=== PATIENT | female | born 1950 | race Caucasian/White ===

== ENCOUNTER → 2018-05-03 12:34 | Outpatient (CLI) | payer MEDICARE, OTHER, SELFPAY ==
--- NOTE | 2018-05-03 | DI.MRI.S_ITS ---
PROCEDURE: MR KNEE RT WO CON INDICATIONS: KNEE PAIN TECHNIQUE: Noncontrast sagittal PD fast spin echo and T2 fast spin echo with fat saturation, sagittal 3-D FLASH with fat saturation; coronal T1 spin echo and PD fast spin echo with fat saturation, and axial PD fast spin echo with fat saturation through the knee. COMPARISON: [facility], MR, KNEE WITHOUT CONTRAST, 03/02/2017, 12:15. FINDINGS: Image quality: Diagnostic. Bones and joint: There is no acute fracture or dislocation. No suspicious osseous lesions are evident. There is a small knee joint effusion with an associated moderate-sized Maxwell cyst. There is mild heterogeneity of the hyaline articular cartilage within the patellofemoral compartment, posterior cruciate along the lateral patellar facet. Surface irregularity of the head articular cartilage is noted within the medial tibiofemoral compartment with small cartilaginous defects likely present. There is heterogeneity of the lateral tibiofemoral hyaline articular cartilage present. No moderate or large full-thickness cartilaginous defects are appreciated. Cruciate ligaments: The anterior and posterior cruciate ligaments are intact. However, the anterior cruciate ligament is somewhat heterogeneous. Menisci: There is a complex tear present involving the body and posterior horn of the medial meniscus with a predominant oblique tear extending onto the inferior articular surface. This tear propagates to the posterior meniscal root with corresponding partial-thickness tearing. There may be an undersurface flap tear extending into the adjacent medial gutter. No detached meniscal fragments are evident. The lateral meniscus is intact and otherwise within normal limits. Medial structures: The medial collateral ligament is intact. The semimembranosus tendon insertion is intact. The imaged portions of the pes anserinus tendons are unremarkable. No significant fluid is contained within the pes anserinus bursa. Lateral structures: The popliteal tendon is intact. The lateral collateral ligament proper (fibular collateral ligament) and the proximal tibiofibular ligaments are intact. The distal aspect of the biceps femoris tendon and the iliotibial band are intact. Anterior structures: The quadriceps and patellar tendons are intact. There is no significant edema in the infrapatellar fat pad. IMPRESSION: 1. Complex medial meniscal tear with a possible small undersurface flap component extending into the medial gutter. 2. Possible mild scarring of the anterior cruciate ligament. No full-thickness tear. 3. Early chondromalacia of the knee is best appreciated within the medial compartment. 4. Small knee joint effusion with an associated Maxwell's cyst. Dictated by: Ascencion Salamanca M.D. on 05/03/2018 at 16:22 Approved by: Ascencion Salamanca M.D. on 05/03/2018 at 16:25
== END ==
PROVIDERS: Family Provider Family Medicine; PCP Family Medicine; Visit Provider Orthopaedic Surgery
DX: M25.561 Pain in right knee (principal); S83.241A Other tear of medial meniscus, current injury, right knee, initial encounter; M25.461 Effusion, right knee; M71.21 Synovial cyst of popliteal space [Baker], right knee
CPT/HCPCS: 73721

== ENCOUNTER → 2018-12-12 12:25 | Outpatient (CLI) | payer MEDICARE, OTHER, SELFPAY ==
--- NOTE | 2018-12-12 | DI.MG.S_ITS ---
BILATERAL DIGITAL SCREENING MAMMOGRAM 3D/2D WITH CAD: 12/12/2018 CLINICAL: Routine screening. Comparison is made to exams dated: 08/09/2017 mammogram, 07/30/2016 mammogram, and 06/11/2015 mammogram - [facility]. The tissue of both breasts is heterogeneously dense. This may lower the sensitivity of mammography. Current study was also evaluated with a Computer Aided Detection (CAD) system. No significant masses, calcifications, or other findings are seen in either breast. There has been no significant interval change. IMPRESSION: NEGATIVE There is no mammographic evidence of malignancy. A 1 year screening mammogram is recommended. This exam was interpreted at Station ID: [id number]. NOTE: For mammograms, a report in lay terms will be sent to the patient. Approximately 15% of breast malignancies will not be visualized mammographically. In the management of a palpable breast mass, a negative mammogram must not discourage biopsy of a clinically suspicious lesion. Electronically Signed By: Beto zepeda/[email or web address]:12/12/2018 14:16:24 copy to: Teresa Patricio letter sent: Normal Exam ACR BI-RADS Category 1: Negative [id number]
== END ==
PROVIDERS: PCP Family Medicine; Visit Provider Family Medicine
DX: Z12.31 Encounter for screening mammogram for malignant neoplasm of breast (principal)
CPT/HCPCS: 77063; 77067

== ENCOUNTER → 2019-06-02 12:28 | Outpatient (CLI) | payer MEDICARE, OTHER, SELFPAY | PROVIDERS: Family Provider Nurse Practitioner; PCP Nurse Practitioner; Visit Provider Orthopaedic Surgery | DX: Z01.818 Encounter for other preprocedural examination (principal) | CPT/HCPCS: 93005 ==

== ENCOUNTER → 2019-08-24 08:18 | Outpatient (CLI) | payer MEDICARE, OTHER, SELFPAY ==
[2019-08-24 09:49] LABS: Hematocrit 39.9 % (36-46); Hemoglobin 13.5 g/dL (12.0-16.0); Mean Corpuscular HGB Conc 33.9 % (30-36); Mean Corpuscular Volume 88.6 fL (80-100); Platelet Count 213 X10^3/uL (150-400); Red Cell Distribution Width 12.7 % (11.6-14.8)
[2019-08-24 10:08] LABS: Neutrophils Absolute Manual 2800 /uL (3000-5900); RBC Morphology Normal Morphology; Total Cells Counted 100
[2019-08-24 10:40] LABS: TSH w/ Reflex to FT4 2.64 uIU/mL (0.47-4.68)
== END ==
PROVIDERS: PCP Nurse Practitioner; Visit Provider Nurse Practitioner
DX: E78.2 Mixed hyperlipidemia (principal); I10 Essential (primary) hypertension; I21.3 ST elevation (STEMI) myocardial infarction of unspecified site; I25.10 Atherosclerotic heart disease of native coronary artery without angina pectoris
CPT/HCPCS: 36415; 84443; 85025

== ENCOUNTER → 2019-09-05 07:42 | Outpatient (CLI) | payer MEDICARE, OTHER, SELFPAY ==
[2019-09-05 08:57] LABS: Alanine Aminotransferase 37 IU/L (9-52); Albumin 4.4 g/dL (3.5-5.0); Albumin Globulin Ratio 1.7 (1.0-2.8); Alkaline Phosphatase 50 U/L (38-126); Aspartate Aminotransferase 31 IU/L (14-36); Bilirubin Total 0.5 mg/dL (0.2-1.3); Blood Urea Nitrogen 14 mg/dL (7-17); Calcium 9.6 mg/dL (8.4-10.2); Carbon Dioxide 31 mmol/L (22-32); Chloride 101 mmol/L (98-107); Estimated Glomerular Filt Rate > 60.0 mL/min (>60); Globulin 2.6 g/dL (1.7-4.1); Glucose 104 mg/dL (80-110); HEMOLYSIS < 15 (0-50); Potassium 4.3 mmol/L (3.4-5.1); Sodium 138 mmol/L (137-145)
== END ==
PROVIDERS: PCP Nurse Practitioner; Visit Provider Nurse Practitioner
DX: E78.2 Mixed hyperlipidemia (principal); I10 Essential (primary) hypertension; I21.3 ST elevation (STEMI) myocardial infarction of unspecified site; I25.10 Atherosclerotic heart disease of native coronary artery without angina pectoris
CPT/HCPCS: 36415; 80053

== ENCOUNTER 2019-10-03 09:00 | Outpatient (RCR) | payer MEDICARE, OTHER, SELFPAY ==
--- NOTE | 2019-08-18 14:33 | PT.OIE ---
Current Diagnoses Stress incontinence (female) (male) (08/18/19) Mixed incontinence (08/18/19) Past Medical History (Last Updated 05/29/19 @ 21:26 by Lindsey Kemp) Anemia (Chronic) Anxiety (Chronic ~1973) Asthma (Chronic ~2004) Bipolar disorder (Chronic ~1999) Chicken pox (Resolved) GERD (gastroesophageal reflux disease) (Chronic ~2010) Hearing loss (Chronic) Hemorrhoid (Chronic) Herpes (Resolved ~1977) History of heart attack (Inactive ~06/2017) History of thyroid disorder (Chronic) History of urinary incontinence (Chronic ~2017) History of urinary urgency (Chronic) Hyperlipidemia (Chronic ~2009) Idiopathic small fiber sensory neuropathy (Chronic ~2013) Irritable bowel syndrome (Chronic ~2007) Measles (Resolved) Mumps (Resolved) Rubella (Resolved) Sleep apnea (Chronic) Tinnitus (Chronic ~1967) Vision disorder (Chronic) Past Surgical History (Last Updated 05/29/19 @ 21:26 by Lindsey Kemp) Anesthesia (Resolved) Cataracts, bilateral (Resolved ~12/2017) Dupuytren contracture (Resolved) History of arthroscopic knee surgery (Resolved) History of breast biopsy (Resolved) History of knee replacement (Resolved ~2011) History of oophorectomy (Resolved ~1988) Visit Care Team Role Provider Type JOCELYN Tineo Attending Provider [employer] Sales Consultant Primary Care Provider Specialty: [facility] Address: [address] [place] [address], [facility] Email: [email or web address] Physical Therapy Initial Evaluation PT-OP-A Visit Information Start: 08/18/19 08:15 Freq: Status: Active Protocol: Document 08/18/19 09:08 LRN (Rec: 08/18/19 10:03 [place] [id number]) Out-Patient Physical Therapy Visit Information Visit Information Visit Type Initial Evaluation Visit Start Time 09:08 Visit Stop Time 09:50 Total Visit Minutes 42 Visit Number 1 Number of ROTARY SWAGING MACHINE OPERATOR Visits 0 Evaluation Information Evaluation Date 08/18/19 Precautions Precautions Per pt and as listed on pt's intake Hx form: Cardiovascular Disease, Heart Attack with stent-06/2017, controlled HBP, cardiovascular disease, partial L medial knee arthroplasty, 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 Extensive Other PMH, see records. PT-OP-B Current Condition Start: 08/18/19 08:15 Freq: Status: Active Protocol: Document 08/18/19 09:08 LRN (Rec: 08/18/19 10:03 LRN [id number]) Current Condition History of Current Condition Onset Date 2 yrs ago, worsened in past 6 months. Current Complaints Urinary leakage with sneezing, now leaks if not getting to bathroom on time History of Current Condition Doesn't always wear a pad if she is around bathrooms. If travelling (ex - leaving the [place]), wears adult briefs. Daily wears 1 pad. If sitting in a car for a long time and stands up, then may leak. Leaks with urgency/urge. Prior Treatments and Tests No Future Testing and Treatments Planned None Developmental History Developmental History No children. Ovaries taken out (3 surgeries) - 20 yrs ago . IBS - diagnosed 15 yrs ago, well managed now. Treatment Goals Patient/Caregiver Goals Pt goal is to find ways to not leak or leak less. 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 Current Functional Impairments (Reported) Functional Limitations- ADL's Limited in social outing to locations with bathrooms. Wears depends adult briefs when going away from home if bathroom is not available. Personal Factors Other Personal Factors That May Effect Extensive. See PMH. Therapy/Recovery PT-OP-I Pelvic Floor Start: 08/18/19 08:15 Freq: Status: Active Protocol: Document 08/18/19 09:08 LRN (Rec: 08/18/19 10:03 LRN [id number]) Pelvic Floor Assessment Urine Pelvic Floor Surgery No Urinary Symptoms Urge Sensation Other Urinary Symptoms Sometimes feels like incomplete emptying. Leakage Size Small Leakage Cause Cough,Sneeze,Urge Leaks Per Day 4 of 7 days, 1-2 times per day . Voiding Frequency 8 Nocturia no Pads Used In 24 Hours 1 Urine Pad Type Panty Liner Bowel Bowel Symptoms Constipation Other Bowel Symptoms Constipation is cyclical, but typically daily. Bowel Movement Frequency 1/day typtically with use of Benefiber. [place] Stool Chart Type 1-7 4 Pelvic Clock Pelvic Clock 6-9 Atrophy,Tenderness Pelvic Clock Other Weak on lateral mckinney Prolapse Rectocele Grade 1 Perineal Descent Resting Absent Bearing Present Contraction Ability Voluntary Contraction Moderate Voluntary Relaxation Moderate Manual Muscle Testing Left 3 Manual Muscle Testing Right 3 Manual Muscle Testing Anterior 2 Manual Muscle Testing Posterior 3 Muscle Endurance (Seconds) 2 Number of Quick Contractions In 10 9 Seconds Comments Pelvic Floor Comments Endurance lateral mckinney: 2 sec Endurance posterior wall: 10 sec PT-OP-J Posture/Palpation/Skin Start: 08/18/19 08:15 Freq: Status: Active Protocol: Document 08/18/19 09:08 LRN (Rec: 08/18/19 10:03 LRN [id number]) Posture Evaluation Position Standing Head/C-Spine Posture Forward Head T-Spine Posture Increased Kyphosis Shoulder Posture (R) Elevated Scapula Posture (L) Depressed Pelvis Posture Anteriorly Tilted Hip Posture (L) Flexed Knee Posture (L) Excess Flexion Foot Arch (L) No Arch,(R) No Arch PT-OP-K Range of Motion Start: 08/18/19 08:15 Freq: Status: Active Protocol: Document 08/18/19 09:08 LRN (Rec: 08/18/19 10:03 LRN [id number]) Lumbar Spine Range of Motion Lumbar Spine Active Degrees Testing Position Standing Flexion 80 Extension 5 Lateral Flexion Left 17 Lateral Flexion Right 20 ROM Limitations Soft Tissue Tightness Hip Goniometric Range of Motion Hip Right Passive Testing Position Supine Straight Leg Raise 95 Internal Rotation 30 External Rotation 85 Left Passive Testing Position Supine Straight Leg Raise 95 Internal Rotation 30 External Rotation 80 PT-OP-M Strength Start: 08/18/19 08:15 Freq: Status: Active Protocol: Document 08/18/19 09:08 LRN (Rec: 08/18/19 10:03 LRN [id number]) Hip Strength Hip Manual Muscle Testing Right Flexion (L2) 5 Normal Left Flexion (L2) 5 Normal PT-OP-Q Treatments Start: 08/18/19 08:15 Freq: Status: Active Protocol: Document 08/18/19 09:08 LRN (Rec: 08/18/19 13:51 LRN [id number]) Therapeutic Exercises Supine Exercises Kegels Supine Exercise Name Kegels: Quick & Long Holds Reps/Minutes 4 Self-Care/Home Management Treatment Education Patient Education Home Exercise Program Other Education Pt educated in bladder diary use and I/S to complete for 7 days including food/fluid intake. Activities Self-Care/Home Management Activities Pt issued and reviewed HEP of Kegel ex's for quick flicks and long holds. PT-OP-T Assessment and Plan Start: 08/18/19 08:15 Freq: Status: Active Protocol: Document 08/18/19 09:08 LRN (Rec: 08/18/19 10:03 LRN [id number]) Physical Therapy Assessment Rehab Potential Rehabilitation Potential Good Evaluation Complexity Number of Personal Factors/Comorbidities 3 or More Number of Body Systems Impaired 4 or More Clinical Presentation at Evaluation Evolving Impairments Impairments Posture,ROM,Sensation,Strength Other Concerns Barriers to Rehabilitation Extensive past medical history . Goals Five Impairment EMG Biofeedback assessment Short Term Goal (STG) LTG set after EMG Biofeedback assessment. STG Duration 09/01/19 Four Impairment Limited social interaction in the absence of a bathroom. Short Term Goal (STG) The pt will be able to reduce toileting frequency to 5-6 times a day. STG Duration 09/29/19 Residential Goal (LTG) Pt will no feel limited in her activities due to the absence of a bathroom. LTG Duration 11/10/19 Three Impairment Urinary leakage with a physical exertion (cough or sneeze) Residential Goal (LTG) Pt will be able to remain continent in the presence of a cough or sneeze. LTG Duration 11/10/19 Two Impairment Urinary leakage with a strong urge. Short Term Goal (STG) Pt will be educated in urinary delay technique. STG Duration 09/01/19 Telegraph Inspector Goal (LTG) Pt will be able to maintain continence in the presence of a strong urge. LTG Duration 09/15/21 One Impairment Lacks appropriate self fci program. Telegraph Inspector Goal (LTG) Pt will be independent with a self fci program. LTG Duration 11/10/19 Assessment Summary Assessment Pt presents with signs and symptoms of mixed urge and stress incontinence. She appears to have leakage primarily with a strong urge and notes leakage with primarily sneezing but also with coughing. She has fairly good strength of her pelvic floor but shows lack of endurance holding in the sidewalls. EMG Biofeedback assessment is needed to assess for muscle tightness. The pt will benefit from skilled physical therapy to improve her level of continence and for education and training in a self fci program. Physical Therapy Plan Frequency and Duration Frequency of Treatment 1x/Week Plan of Care Start Date 08/18/19 Plan of Care End Date 11/10/19 Therapeutic Interventions Therapeutic Interventions Home Exercise Program,Manual Therapy,Neuromuscular Re- education,Patient/Caregiver Education,Self-Care/Home Management,Therapeutic Exercises Modalities Cold Pack/Ice Massage,Electric Stimulation Next Visit Focus/Plan Next Note Type Treatment Note Next Visit Plan Review Bladder Diary and make recommendations for fluid/food intake as needed. Initiate urge difference technique and start deep breathing and relaxation ex and lateral wall strengthening. Assess trunk/ hip strength. SEMG biofeedback assessment with goals set as appropriate.
--- NOTE | 2019-08-18 14:34 | PT.OPPOC ---
Current Diagnoses Stress incontinence (female) (male) (08/18/19) Mixed incontinence (08/18/19) Visit Care Team Role Provider Type JOCELYN Tineo Attending Provider [employer] Operations Manager Primary Care Provider Specialty: Family Practice Address: [address] [place] [address], [facility] Email: [email or web address] Plan Of Care PT-OP-T Assessment and Plan Start: 08/18/19 08:15 Freq: Status: Active Protocol: Document 08/18/19 09:08 LRN (Rec: 08/18/19 10:03 LRN [id number]) Physical Therapy Assessment Rehab Potential Rehabilitation Potential Good Evaluation Complexity Number of Personal Factors/Comorbidities 3 or More Number of Body Systems Impaired 4 or More Clinical Presentation at Evaluation Evolving Impairments Impairments Posture,ROM,Sensation,Strength Other Concerns Barriers to Rehabilitation Extensive past medical history . Goals Five Impairment EMG Biofeedback assessment Short Term Goal (STG) LTG set after EMG Biofeedback assessment. STG Duration 09/01/19 Four Impairment Limited social interaction in the absence of a bathroom. Short Term Goal (STG) The pt will be able to reduce toileting frequency to 5-6 times a day. STG Duration 09/29/19 Longterm Goal (LTG) Pt will no feel limited in her activities due to the absence of a bathroom. LTG Duration 11/10/19 Three Impairment Urinary leakage with a physical exertion (cough or sneeze) Front Office Coordinator Goal (LTG) Pt will be able to remain continent in the presence of a cough or sneeze. LTG Duration 11/10/19 Two Impairment Urinary leakage with a strong urge. Short Term Goal (STG) Pt will be educated in urinary delay technique. STG Duration 09/01/19 Front Office Coordinator Goal (LTG) Pt will be able to maintain continence in the presence of a strong urge. LTG Duration 09/15/21 One Impairment Lacks appropriate self group home program. Front Office Coordinator Goal (LTG) Pt will be independent with a self group home program. LTG Duration 11/10/19 Assessment Summary Assessment Pt presents with signs and symptoms of mixed urge and stress incontinence. She appears to have leakage primarily with a strong urge and notes leakage with primarily sneezing but also with coughing. She has fairly good strength of her pelvic floor but shows lack of endurance holding in the sidewalls. EMG Biofeedback assessment is needed to assess for muscle tightness. The pt will benefit from skilled physical therapy to improve her level of continence and for education and training in a self group home program. Physical Therapy Plan Frequency and Duration Frequency of Treatment 1x/Week Plan of Care Start Date 08/18/19 Plan of Care End Date 11/10/19 Therapeutic Interventions Therapeutic Interventions Home Exercise Program,Manual Therapy,Neuromuscular Re- education,Patient/Caregiver Education,Self-Care/Home Management,Therapeutic Exercises Modalities Cold Pack/Ice Massage,Electric Stimulation Next Visit Focus/Plan Next Note Type Treatment Note Next Visit Plan Review Bladder Diary and make recommendations for fluid/food intake as needed. Initiate urge difference technique and start deep breathing and relaxation ex and lateral wall strengthening. Assess trunk/ hip strength. SEMG biofeedback assessment with goals set as appropriate. Plan of Care Dates Plan of Care Start Date 08/18/19 Plan of Care End Date 11/10/19
--- NOTE | 2019-08-22 15:11 | PT.OTN ---
Current Diagnoses Stress incontinence (female) (male) (08/22/19) Mixed incontinence (08/22/19) Physical Therapy Treatment Note PT-OP-A Visit Information Start: 08/18/19 08:15 Freq: Status: Active Protocol: Document 08/22/19 12:47 LRN (Rec: 08/22/19 13:29 LRN [id number]) Out-Patient Physical Therapy Visit Information Visit Information Visit Type Treatment Note Visit Start Time 12:47 Visit Stop Time 13:30 Total Visit Minutes 43 Visit Number 2 Number of PRESS OPERATOR Visits 0 Evaluation Information Evaluation Date 08/18/19 Precautions Precautions Per pt and as listed on pt's intake Hx form: Cardiovascular Disease, Heart Attack with stent-06/2017, controlled HBP, cardiovascular disease, partial L medial knee arthroplasty, 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 Extensive Other PMH, see records. PT-OP-B Current Condition Start: 08/18/19 08:15 Freq: Status: Active Protocol: Document 08/18/19 09:08 LRN (Rec: 08/18/19 10:03 LRN [id number]) Current Condition History of Current Condition Onset Date 2 yrs ago, worsened in past 6 months. Current Complaints Urinary leakage with sneezing, now leaks if not getting to bathroom on time History of Current Condition Doesn't always wear a pad if she is around bathrooms. If travelling (ex - leaving the [place]), wears adult briefs. Daily wears 1 pad. If sitting in a car for a long time and stands up, then may leak. Leaks with urgency/urge. Prior Treatments and Tests No Future Testing and Treatments Planned None Developmental History Developmental History No children. Ovaries taken out (3 surgeries) - 20 yrs ago . IBS - diagnosed 15 yrs ago, well managed now. Treatment Goals Patient/Caregiver Goals Pt goal is to find ways to not leak or leak less. 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 Current Functional Impairments (Reported) Functional Limitations- ADL's Limited in social outing to locations with bathrooms. Wears depends adult briefs when going away from home if bathroom is not available. Personal Factors Other Personal Factors That May Effect Extensive. See PMH. Therapy/Recovery PT-OP-C Subjective Start: 08/18/19 08:15 Freq: Status: Active Protocol: Document 08/22/19 12:47 LRN (Rec: 08/22/19 13:29 LRN [id number]) OP-PT Subjective Patient Comments Patient Comments Did okay with ex's and no questions. PT-OP-I Pelvic Floor Start: 08/18/19 08:15 Freq: Status: Active Protocol: Document 08/18/19 09:08 LRN (Rec: 08/18/19 10:03 LRN [id number]) Pelvic Floor Assessment Urine Pelvic Floor Surgery No Urinary Symptoms Urge Sensation Other Urinary Symptoms Sometimes feels like incomplete emptying. Leakage Size Small Leakage Cause Cough,Sneeze,Urge Leaks Per Day 4 of 7 days, 1-2 times per day . Voiding Frequency 8 Nocturia no Pads Used In 24 Hours 1 Urine Pad Type Panty Liner Bowel Bowel Symptoms Constipation Other Bowel Symptoms Constipation is cyclical, but typically daily. Bowel Movement Frequency 1/day typtically with use of Benefiber. [place] Stool Chart Type 1-7 4 Pelvic Clock Pelvic Clock 6-9 Atrophy,Tenderness Pelvic Clock Other Weak on lateral mckinney Prolapse Rectocele Grade 1 Perineal Descent Resting Absent Bearing Present Contraction Ability Voluntary Contraction Moderate Voluntary Relaxation Moderate Manual Muscle Testing Left 3 Manual Muscle Testing Right 3 Manual Muscle Testing Anterior 2 Manual Muscle Testing Posterior 3 Muscle Endurance (Seconds) 2 Number of Quick Contractions In 10 9 Seconds Comments Pelvic Floor Comments Endurance lateral mckinney: 2 sec Endurance posterior wall: 10 sec PT-OP-J Posture/Palpation/Skin Start: 08/18/19 08:15 Freq: Status: Active Protocol: Document 08/18/19 09:08 LRN (Rec: 08/18/19 10:03 LRN [id number]) Posture Evaluation Position Standing Head/C-Spine Posture Forward Head T-Spine Posture Increased Kyphosis Shoulder Posture (R) Elevated Scapula Posture (L) Depressed Pelvis Posture Anteriorly Tilted Hip Posture (L) Flexed Knee Posture (L) Excess Flexion Foot Arch (L) No Arch,(R) No Arch PT-OP-K Range of Motion Start: 08/18/19 08:15 Freq: Status: Active Protocol: Document 08/18/19 09:08 LRN (Rec: 08/18/19 10:03 LRN [id number]) Lumbar Spine Range of Motion Lumbar Spine Active Degrees Testing Position Standing Flexion 80 Extension 5 Lateral Flexion Left 17 Lateral Flexion Right 20 ROM Limitations Soft Tissue Tightness Hip Goniometric Range of Motion Hip Right Passive Testing Position Supine Straight Leg Raise 95 Internal Rotation 30 External Rotation 85 Left Passive Testing Position Supine Straight Leg Raise 95 Internal Rotation 30 External Rotation 80 PT-OP-M Strength Start: 08/18/19 08:15 Freq: Status: Active Protocol: Document 08/18/19 09:08 LRN (Rec: 08/18/19 10:03 LRN [id number]) Hip Strength Hip Manual Muscle Testing Right Flexion (L2) 5 Normal Left Flexion (L2) 5 Normal PT-OP-Q Treatments Start: 08/18/19 08:15 Freq: Status: Active Protocol: Document 08/22/19 12:47 LRN (Rec: 08/22/19 13:29 LRN [id number]) Therapeutic Exercises Supine Exercises LE Roll in\out Supine Exercise Name LE roll in/out Side bilateral Reps/Minutes 8' Deep Breathing Supine Exercise Name Deep Breathing 6in/out Reps/Minutes 10 x Kegels Supine Exercise Name Kegels Quick & Long holds, Kegels with ball squeeze Resistance Manual Self-Care/Home Management Treatment Education Patient Education Home Exercise Program Other Education Reviewed and discussed Bladder Diary of 3.5 days. Discussed and recommended changes to her fluid intake (incr H2O), discussed effects of bladder irritants. Reviewed and discussed Bladder Irritant List. Educated at length Bladder Retraining with handout issued . Activities Self-Care/Home Management Activities Issued & Reviewed HEP: LE roll in/outs with ball squeeze on AD. PT-OP-T Assessment and Plan Start: 08/18/19 08:15 Freq: Status: Active Protocol: Document 08/22/19 12:47 LRN (Rec: 08/22/19 13:29 LRN [id number]) Physical Therapy Assessment Assessment Summary Assessment Pt with mixed incontinence. She demonstrated good coordination of her deep breathing and was not able to coordinate LE roll in/out ex with resistance. Review of bladder diary shows decreased H2O intake and increased voiding following caffeine drink. Otherwise time btn voids appear to be 2-3-4 hours . Pt needs strengthening of her PF and possibly will need bladder retraining to prevent hourly voids between 10-12. Pt urination times are fairly good except after consuming bladder irritants. Physical Therapy Plan Frequency and Duration Frequency of Treatment 1x/Week Plan of Care Start Date 08/18/19 Plan of Care End Date 11/10/19 Next Visit Focus/Plan Next Note Type Treatment Note Next Visit Plan Review new Bladder Diary and make recommendations for fluid /food intake as needed. Initiate relaxation ex and progress lateral wall strengthening. Assess trunk/ hip strength. SEMG biofeedback assessment with goals set as appropriate.
--- NOTE | 2019-08-29 09:00 | PT-OP ANOTE ---
Message received that pt reported ferry breaking down; therefore cancelled appt today.
--- NOTE | 2019-09-05 16:29 | PT.OTN ---
Current Diagnoses Stress incontinence (female) (male) (09/05/19) Physical Therapy Treatment Note PT-OP-A Visit Information Start: 08/18/19 08:15 Freq: Status: Active Protocol: Document 09/05/19 09:52 LRN (Rec: 09/05/19 10:34 LRN [id number]) Out-Patient Physical Therapy Visit Information Visit Information Visit Type Treatment Note Visit Start Time 09:53 Visit Stop Time 10:34 Total Visit Minutes 41 Visit Number 3 Number of SOFTWARE CONFIGURATION ANALYST Visits 0 Evaluation Information Evaluation Date 08/18/19 Precautions Precautions Per pt and as listed on pt's intake Hx form: Cardiovascular Disease, Heart Attack with stent-06/2017, controlled HBP, cardiovascular disease, partial L medial knee arthroplasty, 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 Extensive Other PMH, see records. PT-OP-B Current Condition Start: 08/18/19 08:15 Freq: Status: Active Protocol: Document 08/18/19 09:08 LRN (Rec: 08/18/19 10:03 LRN [id number]) Current Condition History of Current Condition Onset Date 2 yrs ago, worsened in past 6 months. Current Complaints Urinary leakage with sneezing, now leaks if not getting to bathroom on time History of Current Condition Doesn't always wear a pad if she is around bathrooms. If travelling (ex - leaving the [place]), wears adult briefs. Daily wears 1 pad. If sitting in a car for a long time and stands up, then may leak. Leaks with urgency/urge. Prior Treatments and Tests No Future Testing and Treatments Planned None Developmental History Developmental History No children. Ovaries taken out (3 surgeries) - 20 yrs ago . IBS - diagnosed 15 yrs ago, well managed now. Treatment Goals Patient/Caregiver Goals Pt goal is to find ways to not leak or leak less. 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 Current Functional Impairments (Reported) Functional Limitations- ADL's Limited in social outing to locations with bathrooms. Wears depends adult briefs when going away from home if bathroom is not available. Personal Factors Other Personal Factors That May Effect Extensive. See PMH. Therapy/Recovery PT-OP-C Subjective Start: 08/18/19 08:15 Freq: Status: Active Protocol: Document 09/05/19 09:52 LRN (Rec: 09/05/19 10:34 LRN [id number]) OP-PT Subjective Patient Comments Patient Comments No change.Not able to get norm amount of fluids into diet yet, I am doing more than normal PT-OP-I Pelvic Floor Start: 08/18/19 08:15 Freq: Status: Active Protocol: Document 08/18/19 09:08 LRN (Rec: 08/18/19 10:03 LRN [id number]) Pelvic Floor Assessment Urine Pelvic Floor Surgery No Urinary Symptoms Urge Sensation Other Urinary Symptoms Sometimes feels like incomplete emptying. Leakage Size Small Leakage Cause Cough,Sneeze,Urge Leaks Per Day 4 of 7 days, 1-2 times per day . Voiding Frequency 8 Nocturia no Pads Used In 24 Hours 1 Urine Pad Type Panty Liner Bowel Bowel Symptoms Constipation Other Bowel Symptoms Constipation is cyclical, but typically daily. Bowel Movement Frequency 1/day typtically with use of Benefiber. [place] Stool Chart Type 1-7 4 Pelvic Clock Pelvic Clock 6-9 Atrophy,Tenderness Pelvic Clock Other Weak on lateral mckinney Prolapse Rectocele Grade 1 Perineal Descent Resting Absent Bearing Present Contraction Ability Voluntary Contraction Moderate Voluntary Relaxation Moderate Manual Muscle Testing Left 3 Manual Muscle Testing Right 3 Manual Muscle Testing Anterior 2 Manual Muscle Testing Posterior 3 Muscle Endurance (Seconds) 2 Number of Quick Contractions In 10 9 Seconds Comments Pelvic Floor Comments Endurance lateral mckinney: 2 sec Endurance posterior wall: 10 sec PT-OP-J Posture/Palpation/Skin Start: 08/18/19 08:15 Freq: Status: Active Protocol: Document 08/18/19 09:08 LRN (Rec: 08/18/19 10:03 LRN [id number]) Posture Evaluation Position Standing Head/C-Spine Posture Forward Head T-Spine Posture Increased Kyphosis Shoulder Posture (R) Elevated Scapula Posture (L) Depressed Pelvis Posture Anteriorly Tilted Hip Posture (L) Flexed Knee Posture (L) Excess Flexion Foot Arch (L) No Arch,(R) No Arch PT-OP-K Range of Motion Start: 08/18/19 08:15 Freq: Status: Active Protocol: Document 08/18/19 09:08 LRN (Rec: 08/18/19 10:03 LRN [id number]) Lumbar Spine Range of Motion Lumbar Spine Active Degrees Testing Position Standing Flexion 80 Extension 5 Lateral Flexion Left 17 Lateral Flexion Right 20 ROM Limitations Soft Tissue Tightness Hip Goniometric Range of Motion Hip Right Passive Testing Position Supine Straight Leg Raise 95 Internal Rotation 30 External Rotation 85 Left Passive Testing Position Supine Straight Leg Raise 95 Internal Rotation 30 External Rotation 80 PT-OP-M Strength Start: 08/18/19 08:15 Freq: Status: Active Protocol: Document 09/05/19 09:52 LRN (Rec: 09/05/19 16:23 LRN [id number]) Hip Strength Hip Manual Muscle Testing Right Flexion (L2) 5 Normal Abduction 5 Normal Adduction 3 Fair Left Flexion (L2) 5 Normal Abduction 5 Normal Adduction 4 Good PT-OP-Q Treatments Start: 08/18/19 08:15 Freq: Status: Active Protocol: Document 09/05/19 09:52 LRN (Rec: 09/05/19 10:34 LRN [id number]) Therapeutic Exercises Supine Exercises SLR Supine Exercise Name SLR with Kegel Side bilateral Reps/Minutes 10 x each Comments Decreased core control with R SLR (decreased L rot strength) LE Roll in\out Supine Exercise Name LE roll in/out Side bilateral Reps/Minutes 8' Comments Added Kegel with full cycle and then resting every other one. Deep Breathing Supine Exercise Name Deep Breathing 6in/out Reps/Minutes 10 x Sidelying Exercises Hip AB Sidelying Exercise Name Hip AB Side bilateral Reps/Minutes 5 x 3 Comments With Kegel for Long hold & for Quick Flicks Hip AD Sidelying Exercise Name Hip AD Side bilateral Reps/Minutes 5x 3 Comments With Kegel for Long hold & for Quick Flicks Self-Care/Home Management Treatment Education Other Education Reviewed Bladder Diary at length with teaching on voiding times and discussion on how to decrease voiding frequency in the AM. Discussed bladder retraining for pm times. Activities Self-Care/Home Management Activities Reviewed HEP, LE roll in/outs. PT-OP-T Assessment and Plan Start: 08/18/19 08:15 Freq: Status: Active Protocol: Document 09/05/19 09:52 LRN (Rec: 09/05/19 16:13 LRN [id number]) Physical Therapy Assessment Goals Five Impairment EMG Biofeedback assessment Short Term Goal (STG) LTG set after EMG Biofeedback assessment. STG Duration 10/18/19 Four Impairment Limited social interaction in the absence of a bathroom. Short Term Goal (STG) The pt will be able to reduce toileting frequency to 5-6 times a day. STG Duration 09/29/19 (09/05/19: GOAL MET) Skilled Nursing Goal (LTG) Pt will no feel limited in her activities due to the absence of a bathroom. LTG Duration 11/10/19 Three Impairment Urinary leakage with a physical exertion (cough or sneeze) Estimate Clerk Goal (LTG) Pt will be able to remain continent in the presence of a cough or sneeze. LTG Duration 11/10/19 (09/05/19: GOAL PARTIALLY MET, continent with sneezing) Two Impairment Urinary leakage with a strong urge. Short Term Goal (STG) Pt will be educated in urinary delay technique. STG Duration 09/01/19 (08/22/19: GOAL MET) Skilled Nursing Goal (LTG) Pt will be able to maintain continence in the presence of a strong urge. LTG Duration 09/15/21 (09/05/19: GOAL MET) One Impairment Lacks appropriate self mcfp program. Skilled Nursing Goal (LTG) Pt will be independent with a self mcfp program. LTG Duration 11/10/19 (09/05/19: Progressing) Progress Towards Goals Progress Comments Goal 1: Progressing HEP. Goal 2: STG & LTG Met for urinary urge delay and continence. Goal 3: Goal partially met. Pt still leaking with coughing . Goal 4: Goal partially met. STG Met: Voiding times decreased. LTG: Not Met. Voiding every 2 hours in PM (norm is 3-4 hrs ). Goal 5: Biofeedback assessment not yet needed, therefore not set. Assessment Summary Assessment Pt presents today with improved voiding frequency. In the PM she is ~every 2 hours, in AM she is voiding every hour due to coffee intake. She is now able to remain continent with sneezing and can delay urination with a strong urge to avoid leaking . Hip strength is weak on the R, possibly related to lumbar spine. Manual therapy to reduce pain at Pelvic Clock 6- 9. Physical Therapy Plan Frequency and Duration Frequency of Treatment 1x/Week Plan of Care Start Date 08/18/19 Plan of Care End Date 11/10/19 Next Visit Focus/Plan Next Note Type Treatment Note Next Visit Plan Initiate relaxation ex to lower rest phase and progress lateral wall strengthening. Assess SLR. Strengthen anterior PF for endurance (not posterior), and R hip. SEMG biofeedback assessment with goals set if needed.
--- NOTE | 2019-09-12 17:55 | PT.OTN ---
Current Diagnoses Stress incontinence (female) (male) (09/12/19) Physical Therapy Treatment Note PT-OP-A Visit Information Start: 08/18/19 08:15 Freq: Status: Active Protocol: Document 09/12/19 08:19 LRN (Rec: 09/12/19 09:05 LRN [id number]) Out-Patient Physical Therapy Visit Information Visit Information Visit Type Treatment Note Visit Start Time 08:19 Visit Stop Time 09:05 Total Visit Minutes 46 Visit Number 4 Number of DETACKER Visits 0 Evaluation Information Evaluation Date 08/18/19 Precautions Precautions Per pt and as listed on pt's intake Hx form: Cardiovascular Disease, Heart Attack with stent-06/2017, controlled HBP, cardiovascular disease, partial L medial knee arthroplasty, 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 Extensive Other PMH, see records. PT-OP-B Current Condition Start: 08/18/19 08:15 Freq: Status: Active Protocol: Document 08/18/19 09:08 LRN (Rec: 08/18/19 10:03 LRN [id number]) Current Condition History of Current Condition Onset Date 2 yrs ago, worsened in past 6 months. Current Complaints Urinary leakage with sneezing, now leaks if not getting to bathroom on time History of Current Condition Doesn't always wear a pad if she is around bathrooms. If travelling (ex - leaving the [place]), wears adult briefs. Daily wears 1 pad. If sitting in a car for a long time and stands up, then may leak. Leaks with urgency/urge. Prior Treatments and Tests No Future Testing and Treatments Planned None Developmental History Developmental History No children. Ovaries taken out (3 surgeries) - 20 yrs ago . IBS - diagnosed 15 yrs ago, well managed now. Treatment Goals Patient/Caregiver Goals Pt goal is to find ways to not leak or leak less. 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 Current Functional Impairments (Reported) Functional Limitations- ADL's Limited in social outing to locations with bathrooms. Wears depends adult briefs when going away from home if bathroom is not available. Personal Factors Other Personal Factors That May Effect Extensive. See PMH. Therapy/Recovery PT-OP-C Subjective Start: 08/18/19 08:15 Freq: Status: Active Protocol: Document 09/12/19 08:19 LRN (Rec: 09/12/19 09:05 LRN [id number]) OP-PT Subjective Patient Comments Patient Comments Has cut down to 1/4 C of caffeinated coffee in the morning but notes no change in voiding. PT-OP-I Pelvic Floor Start: 08/18/19 08:15 Freq: Status: Active Protocol: Document 08/18/19 09:08 LRN (Rec: 08/18/19 10:03 LRN [id number]) Pelvic Floor Assessment Urine Pelvic Floor Surgery No Urinary Symptoms Urge Sensation Other Urinary Symptoms Sometimes feels like incomplete emptying. Leakage Size Small Leakage Cause Cough,Sneeze,Urge Leaks Per Day 4 of 7 days, 1-2 times per day . Voiding Frequency 8 Nocturia no Pads Used In 24 Hours 1 Urine Pad Type Panty Liner Bowel Bowel Symptoms Constipation Other Bowel Symptoms Constipation is cyclical, but typically daily. Bowel Movement Frequency 1/day typtically with use of Benefiber. [place] Stool Chart Type 1-7 4 Pelvic Clock Pelvic Clock 6-9 Atrophy,Tenderness Pelvic Clock Other Weak on lateral mckinney Prolapse Rectocele Grade 1 Perineal Descent Resting Absent Bearing Present Contraction Ability Voluntary Contraction Moderate Voluntary Relaxation Moderate Manual Muscle Testing Left 3 Manual Muscle Testing Right 3 Manual Muscle Testing Anterior 2 Manual Muscle Testing Posterior 3 Muscle Endurance (Seconds) 2 Number of Quick Contractions In 10 9 Seconds Comments Pelvic Floor Comments Endurance lateral mckinney: 2 sec Endurance posterior wall: 10 sec PT-OP-J Posture/Palpation/Skin Start: 08/18/19 08:15 Freq: Status: Active Protocol: Document 08/18/19 09:08 LRN (Rec: 08/18/19 10:03 LRN [id number]) Posture Evaluation Position Standing Head/C-Spine Posture Forward Head T-Spine Posture Increased Kyphosis Shoulder Posture (R) Elevated Scapula Posture (L) Depressed Pelvis Posture Anteriorly Tilted Hip Posture (L) Flexed Knee Posture (L) Excess Flexion Foot Arch (L) No Arch,(R) No Arch PT-OP-K Range of Motion Start: 08/18/19 08:15 Freq: Status: Active Protocol: Document 08/18/19 09:08 LRN (Rec: 10/04/19 10:03 LRN [id number]) Lumbar Spine Range of Motion Lumbar Spine Active Degrees Testing Position Standing Flexion 80 Extension 5 Lateral Flexion Left 17 Lateral Flexion Right 20 ROM Limitations Soft Tissue Tightness Hip Goniometric Range of Motion Hip Right Passive Testing Position Supine Straight Leg Raise 95 Internal Rotation 30 External Rotation 85 Left Passive Testing Position Supine Straight Leg Raise 95 Internal Rotation 30 External Rotation 80 PT-OP-M Strength Start: 08/18/19 08:15 Freq: Status: Active Protocol: Document 09/05/19 09:52 LRN (Rec: 09/05/19 16:23 LRN [id number]) Hip Strength Hip Manual Muscle Testing Right Flexion (L2) 5 Normal Abduction 5 Normal Adduction 3 Fair Left Flexion (L2) 5 Normal Abduction 5 Normal Adduction 4 Good PT-OP-Q Treatments Start: 08/18/19 08:15 Freq: Status: Active Protocol: Document 09/12/19 08:19 LRN (Rec: 09/12/19 09:05 LRN [id number]) Therapeutic Exercises Supine Exercises Lateral Hip stretch Supine Exercise Name Lateral Hip stretch Side bilateral Reps/Minutes 3' Comments Extra time taken for training Happy Baby Pose Supine Exercise Name Happy Baby pose Reps/Minutes 3' Comments Extra time taken for training Piriformis stretch Supine Exercise Name Piriformis stretch Side bilateral Reps/Minutes 4' Comments Extra time taken for training. SLR Supine Exercise Name PSLR stretch to Hamstrings Side bilateral Reps/Minutes 60 sec x 1 each Sidelying Exercises Clamshell bottom leg lifts Sidelying Exercise Name Clamshell bottom leg lift w/ Kegel Side bilateral Hip AD Sidelying Exercise Name Hip AD Side bilateral Reps/Minutes 10x Comments With Kegel for Long hold & for Quick Flicks Standing Exercises Hamstring stretch Standing Exercise Name Hamstring stretch Side bilateral Reps/Minutes 3' Comments Extra time taken for training. Self-Care/Home Management Treatment Education Patient Education Home Exercise Program Other Education Review of Bladder Diary & I/S and educatee pt in Bladder retraining x Activities Self-Care/Home Management Activities Reviewed & Issued HEP: Hip stretches and I/S for holding of standing/squatting Perineum stretches unless needed. PT-OP-T Assessment and Plan Start: 08/18/19 08:15 Freq: Status: Active Protocol: Document 09/12/19 08:19 LRN (Rec: 09/12/19 17:50 LRN [id number]) Physical Therapy Assessment Goals Five Impairment EMG Biofeedback assessment Short Term Goal (STG) LTG set after EMG Biofeedback assessment. STG Duration 09/01/19 Four Impairment Limited social interaction in the absence of a bathroom. Short Term Goal (STG) The pt will be able to reduce toileting frequency to 5-6 times a day. STG Duration 09/29/19 (09/05/19: GOAL MET) Custodial Goal (LTG) Pt will no feel limited in her activities due to the absence of a bathroom. LTG Duration 11/10/19 (09/12/19: Partially Met: Times between voids 2-3 hrs in PM) Three Impairment Urinary leakage with a physical exertion (cough or sneeze) Housing Coordinator Goal (LTG) Pt will be able to remain continent in the presence of a cough or sneeze. LTG Duration 11/10/19 (09/05/19: GOAL PARTIALLY MET, continent with sneezing) Two Impairment Urinary leakage with a strong urge. Short Term Goal (STG) Pt will be educated in urinary delay technique. STG Duration 09/01/19 (08/22/19: GOAL MET) Custodial Goal (LTG) Pt will be able to maintain continence in the presence of a strong urge. LTG Duration 09/15/21 (09/05/19: GOAL MET) One Impairment Lacks appropriate self penitentiary program. Housing Coordinator Goal (LTG) Pt will be independent with a self penitentiary program. LTG Duration 11/10/19 (09/12/19: Progressing) Progress Towards Goals Progress Comments Goal 1: Progressing HEP. Goal 2: STG & LTG MET for urinary urge delay and continence. Goal 3: Goal partially met. Pt still leaking with coughing . Goal 4: Goal partially met. STG Met: Voiding times decreased. LTG: Partially Met. Voiding every 2-3 hours in PM (norm is 3-4 hrs). Goal 5: Biofeedback assessment not yet needed, therefore not set. Assessment Summary Assessment Pt has increased her PM voids to mostly every 3 hours, sometimes 2 hrs. AM voids hourly after caffeine intake, but after 2 hours greater time between voids. Pt interested in increasing voiding times to every 3 hours and will work on this the next 2 weeks. PSLR is normal (R is slightly better than L). Physical Therapy Plan Frequency and Duration Frequency of Treatment 1x/Week Plan of Care Start Date 08/18/19 Plan of Care End Date 11/10/19 Next Visit Focus/Plan Next Note Type Treatment Note Next Visit Plan Asssess PF relaxation control and for lateral mckinney and anterior PF for strength and endurance. Assess pt's progress of towards 3-4 hours between voids. Strengthen anterior PF for endurance (not posterior), and R hip.
--- NOTE | 2019-09-12 18:05 | PT.OTN ---
Current Diagnoses Stress incontinence (female) (male) (09/12/19) Physical Therapy Treatment Note PT-OP-A Visit Information Start: 08/18/19 08:15 Freq: Status: Active Protocol: Document 09/12/19 08:19 LRN (Rec: 09/12/19 09:05 LRN [id number]) Out-Patient Physical Therapy Visit Information Visit Information Visit Type Treatment Note Visit Start Time 08:19 Visit Stop Time 09:05 Total Visit Minutes 46 Visit Number 4 Number of STAPLE SHEAR OPERATOR Visits 0 Evaluation Information Evaluation Date 08/18/19 Precautions Precautions Per pt and as listed on pt's intake Hx form: Cardiovascular Disease, Heart Attack with stent-06/2017, controlled HBP, cardiovascular disease, partial L medial knee arthroplasty, 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 Extensive Other PMH, see records. PT-OP-B Current Condition Start: 08/18/19 08:15 Freq: Status: Active Protocol: Document 08/18/19 09:08 LRN (Rec: 08/18/19 10:03 LRN [id number]) Current Condition History of Current Condition Onset Date 2 yrs ago, worsened in past 6 months. Current Complaints Urinary leakage with sneezing, now leaks if not getting to bathroom on time History of Current Condition Doesn't always wear a pad if she is around bathrooms. If travelling (ex - leaving the [place]), wears adult briefs. Daily wears 1 pad. If sitting in a car for a long time and stands up, then may leak. Leaks with urgency/urge. Prior Treatments and Tests No Future Testing and Treatments Planned None Developmental History Developmental History No children. Ovaries taken out (3 surgeries) - 20 yrs ago . IBS - diagnosed 15 yrs ago, well managed now. Treatment Goals Patient/Caregiver Goals Pt goal is to find ways to not leak or leak less. 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 Current Functional Impairments (Reported) Functional Limitations- ADL's Limited in social outing to locations with bathrooms. Wears depends adult briefs when going away from home if bathroom is not available. Personal Factors Other Personal Factors That May Effect Extensive. See PMH. Therapy/Recovery PT-OP-C Subjective Start: 08/18/19 08:15 Freq: Status: Active Protocol: Document 09/12/19 08:19 LRN (Rec: 09/12/19 09:05 LRN [id number]) OP-PT Subjective Patient Comments Patient Comments Has cut down to 1/4 C of caffeinated coffee in the morning but notes no change in voiding. PT-OP-I Pelvic Floor Start: 08/18/19 08:15 Freq: Status: Active Protocol: Document 08/18/19 09:08 LRN (Rec: 08/18/19 10:03 LRN [id number]) Pelvic Floor Assessment Urine Pelvic Floor Surgery No Urinary Symptoms Urge Sensation Other Urinary Symptoms Sometimes feels like incomplete emptying. Leakage Size Small Leakage Cause Cough,Sneeze,Urge Leaks Per Day 4 of 7 days, 1-2 times per day . Voiding Frequency 8 Nocturia no Pads Used In 24 Hours 1 Urine Pad Type Panty Liner Bowel Bowel Symptoms Constipation Other Bowel Symptoms Constipation is cyclical, but typically daily. Bowel Movement Frequency 1/day typtically with use of Benefiber. [place] Stool Chart Type 1-7 4 Pelvic Clock Pelvic Clock 6-9 Atrophy,Tenderness Pelvic Clock Other Weak on lateral mckinney Prolapse Rectocele Grade 1 Perineal Descent Resting Absent Bearing Present Contraction Ability Voluntary Contraction Moderate Voluntary Relaxation Moderate Manual Muscle Testing Left 3 Manual Muscle Testing Right 3 Manual Muscle Testing Anterior 2 Manual Muscle Testing Posterior 3 Muscle Endurance (Seconds) 2 Number of Quick Contractions In 10 9 Seconds Comments Pelvic Floor Comments Endurance lateral mckinney: 2 sec Endurance posterior wall: 10 sec PT-OP-J Posture/Palpation/Skin Start: 08/18/19 08:15 Freq: Status: Active Protocol: Document 08/18/19 09:08 LRN (Rec: 08/18/19 10:03 LRN [id number]) Posture Evaluation Position Standing Head/C-Spine Posture Forward Head T-Spine Posture Increased Kyphosis Shoulder Posture (R) Elevated Scapula Posture (L) Depressed Pelvis Posture Anteriorly Tilted Hip Posture (L) Flexed Knee Posture (L) Excess Flexion Foot Arch (L) No Arch,(R) No Arch PT-OP-K Range of Motion Start: 08/18/19 08:15 Freq: Status: Active Protocol: Document 08/18/19 09:08 LRN (Rec: 10/04/19 10:03 LRN [id number]) Lumbar Spine Range of Motion Lumbar Spine Active Degrees Testing Position Standing Flexion 80 Extension 5 Lateral Flexion Left 17 Lateral Flexion Right 20 ROM Limitations Soft Tissue Tightness Hip Goniometric Range of Motion Hip Right Passive Testing Position Supine Straight Leg Raise 95 Internal Rotation 30 External Rotation 85 Left Passive Testing Position Supine Straight Leg Raise 95 Internal Rotation 30 External Rotation 80 PT-OP-M Strength Start: 08/18/19 08:15 Freq: Status: Active Protocol: Document 09/05/19 09:52 LRN (Rec: 09/05/19 16:23 LRN [id number]) Hip Strength Hip Manual Muscle Testing Right Flexion (L2) 5 Normal Abduction 5 Normal Adduction 3 Fair Left Flexion (L2) 5 Normal Abduction 5 Normal Adduction 4 Good PT-OP-Q Treatments Start: 08/18/19 08:15 Freq: Status: Active Protocol: Document 09/12/19 08:19 LRN (Rec: 09/12/19 09:05 LRN [id number]) Therapeutic Exercises Supine Exercises Lateral Hip stretch Supine Exercise Name Lateral Hip stretch Side bilateral Reps/Minutes 3' Comments Extra time taken for training Happy Baby Pose Supine Exercise Name Happy Baby pose Reps/Minutes 3' Comments Extra time taken for training Piriformis stretch Supine Exercise Name Piriformis stretch Side bilateral Reps/Minutes 4' Comments Extra time taken for training. SLR Supine Exercise Name PSLR stretch to Hamstrings Side bilateral Reps/Minutes 60 sec x 1 each Sidelying Exercises Clamshell bottom leg lifts Sidelying Exercise Name Clamshell bottom leg lift w/ Kegel Side bilateral Hip AD Sidelying Exercise Name Hip AD Side bilateral Reps/Minutes 10x Comments With Kegel for Long hold & for Quick Flicks Standing Exercises Hamstring stretch Standing Exercise Name Hamstring stretch Side bilateral Reps/Minutes 3' Comments Extra time taken for training. Self-Care/Home Management Treatment Education Patient Education Home Exercise Program Other Education Review of Bladder Diary & I/S and educated pt in Bladder retraining Activities Self-Care/Home Management Activities Reviewed & Issued HEP: Hip stretches and I/S for holding of standing/squatting Perineum stretches unless needed. Reviewed & issued HEP: Hip Clamshell and I/S in hip AD w/ Kegel followed by PF stretching. PT-OP-T Assessment and Plan Start: 08/18/19 08:15 Freq: Status: Active Protocol: Document 09/12/19 08:19 LRN (Rec: 09/12/19 17:50 LRN [id number]) Physical Therapy Assessment Goals Five Impairment EMG Biofeedback assessment Short Term Goal (STG) LTG set after EMG Biofeedback assessment. STG Duration 09/01/19 Four Impairment Limited social interaction in the absence of a bathroom. Short Term Goal (STG) The pt will be able to reduce toileting frequency to 5-6 times a day. STG Duration 09/29/19 (09/05/19: GOAL MET) Half-Way Goal (LTG) Pt will no feel limited in her activities due to the absence of a bathroom. LTG Duration 11/10/19 (09/12/19: Partially Met: Times between voids 2-3 hrs in PM) Three Impairment Urinary leakage with a physical exertion (cough or sneeze) Half-Way Goal (LTG) Pt will be able to remain continent in the presence of a cough or sneeze. LTG Duration 11/10/19 (09/05/19: GOAL PARTIALLY MET, continent with sneezing) Two Impairment Urinary leakage with a strong urge. Short Term Goal (STG) Pt will be educated in urinary delay technique. STG Duration 09/01/19 (08/22/19: GOAL MET) Half-Way Goal (LTG) Pt will be able to maintain continence in the presence of a strong urge. LTG Duration 09/15/21 (09/05/19: GOAL MET) One Impairment Lacks appropriate self longterm program. Clearing Supervisor Goal (LTG) Pt will be independent with a self longterm program. LTG Duration 11/10/19 (09/12/19: Progressing) Progress Towards Goals Progress Comments Goal 1: Progressing HEP. Goal 2: STG & LTG MET for urinary urge delay and continence. Goal 3: Goal partially met. Pt still leaking with coughing . Goal 4: Goal partially met. STG Met: Voiding times decreased. LTG: Partially Met. Voiding every 2-3 hours in PM (norm is 3-4 hrs). Goal 5: Biofeedback assessment not yet needed, therefore not set. Assessment Summary Assessment Pt has increased her PM voids to mostly every 3 hours, sometimes 2 hrs. AM voids hourly after caffeine intake, but after 2 hours greater time between voids. Pt interested in increasing voiding times to every 3 hours and will work on this the next 2 weeks. PSLR is normal (R is slightly better than L). Physical Therapy Plan Frequency and Duration Frequency of Treatment 1x/Week Plan of Care Start Date 08/18/19 Plan of Care End Date 11/10/19 Next Visit Focus/Plan Next Note Type Treatment Note Next Visit Plan Asssess PF relaxation control and for lateral mckinney and anterior PF for strength and endurance. Assess pt's progress of towards 3-4 hours between voids. Strengthen anterior PF for endurance (not posterior), and R hip.
--- NOTE | 2019-09-26 17:23 | PT.OTN ---
Current Diagnoses Stress incontinence (female) (male) (09/26/19) Physical Therapy Treatment Note PT-OP-A Visit Information Start: 08/18/19 08:15 Freq: Status: Active Protocol: Document 09/26/19 09:04 LRN (Rec: 09/26/19 09:50 LRN [id number]) Out-Patient Physical Therapy Visit Information Visit Information Visit Type Treatment Note Visit Start Time 09:04 Visit Stop Time 09:44 Total Visit Minutes 40 Visit Number 5 Number of MEASUREMENT OPERATOR Visits 0 Evaluation Information Evaluation Date 08/18/19 Precautions Precautions Per pt and as listed on pt's intake Hx form: Cardiovascular Disease, Heart Attack with stent-06/2017, controlled HBP, cardiovascular disease, partial L medial knee arthroplasty, 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 Extensive Other PMH, see records. PT-OP-B Current Condition Start: 08/18/19 08:15 Freq: Status: Active Protocol: Document 08/18/19 09:08 LRN (Rec: 08/18/19 10:03 LRN [id number]) Current Condition History of Current Condition Onset Date 2 yrs ago, worsened in past 6 months. Current Complaints Urinary leakage with sneezing, now leaks if not getting to bathroom on time History of Current Condition Doesn't always wear a pad if she is around bathrooms. If travelling (ex - leaving the [place]), wears adult briefs. Daily wears 1 pad. If sitting in a car for a long time and stands up, then may leak. Leaks with urgency/urge. Prior Treatments and Tests No Future Testing and Treatments Planned None Developmental History Developmental History No children. Ovaries taken out (3 surgeries) - 20 yrs ago . IBS - diagnosed 15 yrs ago, well managed now. Treatment Goals Patient/Caregiver Goals Pt goal is to find ways to not leak or leak less. 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 Current Functional Impairments (Reported) Functional Limitations- ADL's Limited in social outing to locations with bathrooms. Wears depends adult briefs when going away from home if bathroom is not available. Personal Factors Other Personal Factors That May Effect Extensive. See PMH. Therapy/Recovery PT-OP-C Subjective Start: 08/18/19 08:15 Freq: Status: Active Protocol: Document 09/26/19 09:04 LRN (Rec: 09/26/19 09:50 LRN [id number]) OP-PT Subjective Patient Comments Patient Comments Most voiding times are 2-3 hrs and once 4 hrs without leakage. PT-OP-I Pelvic Floor Start: 08/18/19 08:15 Freq: Status: Active Protocol: Document 08/18/19 09:08 LRN (Rec: 08/18/19 10:03 LRN [id number]) Pelvic Floor Assessment Urine Pelvic Floor Surgery No Urinary Symptoms Urge Sensation Other Urinary Symptoms Sometimes feels like incomplete emptying. Leakage Size Small Leakage Cause Cough,Sneeze,Urge Leaks Per Day 4 of 7 days, 1-2 times per day . Voiding Frequency 8 Nocturia no Pads Used In 24 Hours 1 Urine Pad Type Panty Liner Bowel Bowel Symptoms Constipation Other Bowel Symptoms Constipation is cyclical, but typically daily. Bowel Movement Frequency 1/day typtically with use of Benefiber. [place] Stool Chart Type 1-7 4 Pelvic Clock Pelvic Clock 6-9 Atrophy,Tenderness Pelvic Clock Other Weak on lateral mckinney Prolapse Rectocele Grade 1 Perineal Descent Resting Absent Bearing Present Contraction Ability Voluntary Contraction Moderate Voluntary Relaxation Moderate Manual Muscle Testing Left 3 Manual Muscle Testing Right 3 Manual Muscle Testing Anterior 2 Manual Muscle Testing Posterior 3 Muscle Endurance (Seconds) 2 Number of Quick Contractions In 10 9 Seconds Comments Pelvic Floor Comments Endurance lateral mckinney: 2 sec Endurance posterior wall: 10 sec PT-OP-J Posture/Palpation/Skin Start: 08/18/19 08:15 Freq: Status: Active Protocol: Document 08/18/19 09:08 LRN (Rec: 08/18/19 10:03 LRN [id number]) Posture Evaluation Position Standing Head/C-Spine Posture Forward Head T-Spine Posture Increased Kyphosis Shoulder Posture (R) Elevated Scapula Posture (L) Depressed Pelvis Posture Anteriorly Tilted Hip Posture (L) Flexed Knee Posture (L) Excess Flexion Foot Arch (L) No Arch,(R) No Arch PT-OP-K Range of Motion Start: 08/18/19 08:15 Freq: Status: Active Protocol: Document 08/18/19 09:08 LRN (Rec: 08/18/19 10:03 LRN [id number]) Lumbar Spine Range of Motion Lumbar Spine Active Degrees Testing Position Standing Flexion 80 Extension 5 Lateral Flexion Left 17 Lateral Flexion Right 20 ROM Limitations Soft Tissue Tightness Hip Goniometric Range of Motion Hip Right Passive Testing Position Supine Straight Leg Raise 95 Internal Rotation 30 External Rotation 85 Left Passive Testing Position Supine Straight Leg Raise 95 Internal Rotation 30 External Rotation 80 PT-OP-M Strength Start: 08/18/19 08:15 Freq: Status: Active Protocol: Document 09/05/19 09:52 LRN (Rec: 09/05/19 16:23 LRN [id number]) Hip Strength Hip Manual Muscle Testing Right Flexion (L2) 5 Normal Abduction 5 Normal Adduction 3 Fair Left Flexion (L2) 5 Normal Abduction 5 Normal Adduction 4 Good PT-OP-Q Treatments Start: 08/18/19 08:15 Freq: Status: Active Protocol: Document 09/26/19 09:04 LRN (Rec: 09/26/19 09:50 LRN [id number]) Therapeutic Exercises Supine Exercises Hands/Knees push Supine Exercise Name 90/90 LE's, Hands/Knees push Reps/Minutes 10x 90/90 trunk rot Supine Exercise Name Feet on wall, trunk rot Equipment Used Ball, wall Reps/Minutes 10x Comments Exhale as rotating, Inhale on return Off wall roll in/outs Supine Exercise Name Heel lifts off wall for TA strengthening w/LE roll in/ outs Reps/Minutes 10x Happy Baby Pose Supine Exercise Name Happy Baby pose Reps/Minutes 3' Comments Extra time taken for training Kegels Supine Exercise Name Kegels with physical digital stim and assessment Reps/Minutes 17' Comments Superficial and deep Self-Care/Home Management Treatment Education Patient Education Home Exercise Program Other Education Review of Bladder Diary & I/S in Bladder retraining for voiding every 2.5 to 3 hrs. Activities Self-Care/Home Management Activities Issued & reviewed HEP: TA strengthening off the wall ( heel lifts off the wall for roll in/outs, hands/knees push , trunk rot) PT-OP-T Assessment and Plan Start: 08/18/19 08:15 Freq: Status: Active Protocol: Document 09/26/19 09:04 LRN (Rec: 09/26/19 09:50 LRN [id number]) Physical Therapy Assessment Goals Five Impairment EMG Biofeedback assessment Short Term Goal (STG) LTG set after EMG Biofeedback assessment. STG Duration 10/18/19 Four Impairment Limited social interaction in the absence of a bathroom. Short Term Goal (STG) The pt will be able to reduce toileting frequency to 5-6 times a day. STG Duration 09/29/19 (09/05/19: GOAL MET) Electric Motor Winder Goal (LTG) Pt will no feel limited in her activities due to the absence of a bathroom. LTG Duration 11/10/19 (09/26/19: GOAL MET, Times between voids 2-3 hrs) Three Impairment Urinary leakage with a physical exertion (cough or sneeze) Fdc Goal (LTG) Pt will be able to remain continent in the presence of a cough or sneeze. LTG Duration 11/10/19 (09/26/19: GOAL MET ) One Impairment Lacks appropriate self shelter program. Fdc Goal (LTG) Pt will be independent with a self shelter program. LTG Duration 11/10/19 (09/26/19: Progressing) Assessment Summary Assessment PF endurance is 5 sec x 2, Quick flicks is 10 reps but 3 O'Clock of the PF Clock is weak. TA strength is weak on the left. Physical Therapy Plan Next Visit Focus/Plan Next Note Type Treatment Note Next Visit Plan Recheck PF strength for Quick flicks of superficial muscle on L side for symmetry to R. Recheck HEP issued and progress to voiding every 2.5 hrs. Pt to stretch after strengthening ex's to keep PF relaxed.
--- NOTE | 2019-11-16 17:10 | PT-OP ANOTE ---
Per phone conversation the pt is doing good and will seek a new referral if she feels further need for PT. Pt agreeable to DC from PT.
--- NOTE | 2019-11-20 12:16 | PT-OP ANOTE ---
Per telephone conversation the pt states she is doing really good and is agreeable to discharge from therapy. Pt was instructed that if she felt further therapy was needed, then she would need a new referral to return to therapy. Pt states she understood.
--- NOTE | 2019-11-20 12:22 | PT.OPDS ---
Current Diagnoses Stress incontinence (female) (male) (10/03/19) Visit Care Team Role Provider Type JOCELYN Tineo Attending Provider Advanced Truck Spotter Primary Care Provider Specialty: Family Practice Address: [address] [place] [address], [facility] Email: [email or web address] Visit Number Visit Number 6 Discharge Summary PT-OP-B Current Condition Start: 08/18/19 08:15 Freq: Status: Active Protocol: Document 08/18/19 09:08 LRN (Rec: 08/18/19 10:03 LRN [id number]) Current Condition History of Current Condition Onset Date 2 yrs ago, worsened in past 6 months. Current Complaints Urinary leakage with sneezing, now leaks if not getting to bathroom on time History of Current Condition Doesn't always wear a pad if she is around bathrooms. If travelling (ex - leaving the [place]), wears adult briefs. Daily wears 1 pad. If sitting in a car for a long time and stands up, then may leak. Leaks with urgency/urge. Prior Treatments and Tests No Future Testing and Treatments Planned None Developmental History Developmental History No children. Ovaries taken out (3 surgeries) - 20 yrs ago . IBS - diagnosed 15 yrs ago, well managed now. Treatment Goals Patient/Caregiver Goals Pt goal is to find ways to not leak or leak less. 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 Current Functional Impairments (Reported) Functional Limitations- ADL's Limited in social outing to locations with bathrooms. Wears depends adult briefs when going away from home if bathroom is not available. Personal Factors Other Personal Factors That May Effect Extensive. See PMH. Therapy/Recovery PT-OP-C Subjective Start: 08/18/19 08:15 Freq: Status: Active Protocol: Document 10/03/19 09:12 LRN (Rec: 10/03/19 10:13 LRN [id number]) OP-PT Subjective Patient Comments Patient Comments Able to go 2hr, 15min without voiding using delay technique. No questions regarding training the bladder. PT-OP-I Pelvic Floor Start: 08/18/19 08:15 Freq: Status: Active Protocol: Document 10/03/19 09:12 LRN (Rec: 10/03/19 10:13 LRN [id number]) Pelvic Floor Assessment Urine Other Urinary Symptoms Small leak once in 3 weeks due to waiting too long to void. Pelvic Clock Pelvic Clock 6-9 Tenderness Pelvic Clock Other Tight band of PF ~6-9 O'Clock Contraction Ability Voluntary Contraction Moderate Manual Muscle Testing Left 2 Manual Muscle Testing Right 3 Manual Muscle Testing Anterior 3 Manual Muscle Testing Posterior 3 Muscle Endurance (Seconds) 5 Number of Quick Contractions In 10 10 Seconds Comments Pelvic Floor Comments Weakness of holding and ability to contract 10x on left lateral wall of PF. PT-OP-J Posture/Palpation/Skin Start: 08/18/19 08:15 Freq: Status: Active Protocol: Document 08/18/19 09:08 LRN (Rec: 08/18/19 10:03 LRN [id number]) Posture Evaluation Position Standing Head/C-Spine Posture Forward Head T-Spine Posture Increased Kyphosis Shoulder Posture (R) Elevated Scapula Posture (L) Depressed Pelvis Posture Anteriorly Tilted Hip Posture (L) Flexed Knee Posture (L) Excess Flexion Foot Arch (L) No Arch,(R) No Arch PT-OP-K Range of Motion Start: 08/18/19 08:15 Freq: Status: Active Protocol: Document 08/18/19 09:08 LRN (Rec: 08/18/19 10:03 LRN [id number]) Lumbar Spine Range of Motion Lumbar Spine Active Degrees Testing Position Standing Flexion 80 Extension 5 Lateral Flexion Left 17 Lateral Flexion Right 20 ROM Limitations Soft Tissue Tightness Hip Goniometric Range of Motion Hip Right Passive Testing Position Supine Straight Leg Raise 95 Internal Rotation 30 External Rotation 85 Left Passive Testing Position Supine Straight Leg Raise 95 Internal Rotation 30 External Rotation 80 PT-OP-M Strength Start: 08/18/19 08:15 Freq: Status: Active Protocol: Document 09/05/19 09:52 LRN (Rec: 09/05/19 16:23 LRN [id number]) Hip Strength Hip Manual Muscle Testing Right Flexion (L2) 5 Normal Abduction 5 Normal Adduction 3 Fair Left Flexion (L2) 5 Normal Abduction 5 Normal Adduction 4 Good PT-OP-T Assessment and Plan Start: 08/18/19 08:15 Freq: Status: Active Protocol: Document 11/20/19 12:17 LRN (Rec: 11/20/19 12:22 LRN [id number]) Physical Therapy Assessment Goals Five Impairment EMG Biofeedback assessment Short Term Goal (STG) LTG set after EMG Biofeedback assessment. STG Duration 09/01/19 10/03/19: DC goal. Not necessary. Four Impairment Limited social interaction in the absence of a bathroom. Short Term Goal (STG) The pt will be able to reduce toileting frequency to 5-6 times a day. STG Duration 09/29/19 (09/05/19: GOAL MET) Long-Term Goal (LTG) Pt will no feel limited in her activities due to the absence of a bathroom. LTG Duration 11/10/19 (09/26/19: GOAL MET, Times between voids 2-3 hrs) Three Impairment Urinary leakage with a physical exertion (cough or sneeze) Long-Term Goal (LTG) Pt will be able to remain continent in the presence of a cough or sneeze. LTG Duration 11/10/19 (09/26/19: GOAL MET ) Two Impairment Urinary leakage with a strong urge. Short Term Goal (STG) Pt will be educated in urinary delay technique. STG Duration 09/01/19 (08/22/19: GOAL MET) Long-Term Goal (LTG) Pt will be able to maintain continence in the presence of a strong urge. LTG Duration 09/15/21 (09/05/19: GOAL MET) One Impairment Lacks appropriate self group home program. Microfilm Camera Operator Goal (LTG) Pt will be independent with a self group home program. LTG Duration 11/10/19 (09/26/19: Progressing) Assessment Summary Assessment Pt was last seen for therapy on 10/03/19 and did not return for her 1 month follow up visit for check of L sided PF weakness. At that time her endurance was 3-6 sec's and 2 secs at PF 3 O'Clock. Quick Flicks was good except for at PF 3 O'Clock (pt left side). Pt TA was weak with contraction and automatic TA training was needed. Per phone conversation the pt felt everything was going good and did not need to return to therapy; therefore the pt is being discharged to her self care program. Physical Therapy Plan Discharge Physical Therapy Discharge Reasons No Longer Attending PT Discharge Comments Pt met most of her goals. Thank you for your referral.
== END 2019-10-03 10:00 ==
LOC: PHYS 09:00
PROVIDERS: PCP Nurse Practitioner; Visit Provider Nurse Practitioner
DX: N39.3 Stress incontinence (female) (male) (principal)
CPT/HCPCS: 97110; 97162; 97535

== ENCOUNTER → 2019-12-28 14:53 | Outpatient (CLI) | payer MEDICARE, OTHER, SELFPAY ==
--- NOTE | 2019-12-28 | DI.MG.S_ITS ---
BILATERAL DIGITAL SCREENING MAMMOGRAM 3D/2D WITH CAD: 12/28/2019 CLINICAL: Routine screening. Comparison is made to exams dated: 12/12/2018 mammogram, 08/09/2017 mammogram, 07/30/2016 mammogram, 12/23/2015 mammogram, 01/19/2014 mammogram, and 06/11/2015 mammogram - [facility]. The tissue of both breasts is heterogeneously dense. This may lower the sensitivity of mammography. Current study was also evaluated with a Computer Aided Detection (CAD) system. No significant masses, calcifications, or other findings are seen in either breast. There has been no significant interval change. IMPRESSION: NEGATIVE There is no mammographic evidence of malignancy. A 1 year screening mammogram is recommended. This exam was interpreted at Station ID: [id number]. NOTE: For mammograms, a report in lay terms will be sent to the patient. Approximately 15% of breast malignancies will not be visualized mammographically. In the management of a palpable breast mass, a negative mammogram must not discourage biopsy of a clinically suspicious lesion. Electronically Signed By: Bhavin thomason/fermin:12/28/2019 22:02:42 copy to: Teresa Patricio letter sent: Normal Exam ACR BI-RADS Category 1: Negative [id number]
== END ==
PROVIDERS: PCP Nurse Practitioner; Referring Provider Nurse Practitioner; Visit Provider Nurse Practitioner
DX: Z12.31 Encounter for screening mammogram for malignant neoplasm of breast (principal)
CPT/HCPCS: 77063; 77067

== ENCOUNTER → 2021-01-08 11:02 | Outpatient (CLI) | payer MEDICARE, OTHER, SELFPAY ==
--- NOTE | 2021-01-08 | DI.MG.S_ITS ---
BILATERAL DIGITAL SCREENING MAMMOGRAM 3D/2D WITH CAD: 01/08/2021 CLINICAL: Routine screening. Comparison is made to exams dated: 12/28/2019 mammogram, 12/12/2018 mammogram, 08/09/2017 mammogram, and 07/30/2016 mammogram - [facility]. The tissue of both breasts is heterogeneously dense. This may lower the sensitivity of mammography. Current study was also evaluated with a Computer Aided Detection (CAD) system. No significant masses, calcifications, or other findings are seen in either breast. There has been no significant interval change. IMPRESSION: NEGATIVE There is no mammographic evidence of malignancy. A 1 year screening mammogram is recommended. This exam was interpreted at Station ID: [id number]. NOTE: For mammograms, a report in lay terms will be sent to the patient. Approximately 15% of breast malignancies will not be visualized mammographically. In the management of a palpable breast mass, a negative mammogram must not discourage biopsy of a clinically suspicious lesion. Electronically Signed By: Renetta faria/fermin:01/08/2021 13:21:56 letter sent: Normal Exam ACR BI-RADS Category 1: Negative [id number]
== END ==
PROVIDERS: PCP Nurse Practitioner; Referring Provider Nurse Practitioner; Visit Provider Nurse Practitioner
DX: Z12.31 Encounter for screening mammogram for malignant neoplasm of breast (principal)
CPT/HCPCS: 77063; 77067

== ENCOUNTER → 2021-01-29 10:40 | Outpatient (CLI) | payer MEDICARE, OTHER, SELFPAY ==
[2021-01-29 11:31] LABS: Hemoglobin A1C% w Est Avg Glu 5.9 % (4.0-6.0)
[2021-01-29 12:01] LABS: Alanine Aminotransferase 21 IU/L (<35); Albumin 4.6 g/dL (3.5-5.0); Albumin Globulin Ratio 1.6 (1.0-2.8); Alkaline Phosphatase 49 U/L (38-126); Aspartate Aminotransferase 26 IU/L (14-36); BUN Creatinine Ratio 20.3 (6-22); Bilirubin Total 0.4 mg/dL (0.2-1.3); Blood Urea Nitrogen 13 mg/dL (7-17); Calcium 9.4 mg/dL (8.4-10.2); Carbon Dioxide 29 mmol/L (22-32); Chloride 102 mmol/L (98-107); Cholesterol 183 mg/dL (140-199); Creatinine Urine Random 29.7 mg/dL; Estimated Glomerular Filt Rate > 60.0 mL/min (>60); Globulin 2.9 g/dL (1.7-4.1); Glucose 103 mg/dL (80-110); HDL Cholesterol 62 mg/dL (40-60); HEMOLYSIS < 15 (0-50); LDL Cholesterol Calculated 102 mg/dL (<100); Potassium 4.2 mmol/L (3.4-5.1); Sodium 138 mmol/L (137-145); Total Protein 7.5 g/dL (6.3-8.2); Triglycerides 95 mg/dL (35-150)
[2021-01-29 12:07] LABS: Microalbumin Urine Random < 0.6 mg/dL (0-1.6)
[2021-01-29 12:33] LABS: TSH w/ Reflex to FT4 2.68 uIU/mL (0.47-4.68)
== END ==
PROVIDERS: PCP Nurse Practitioner; Referring Provider Nurse Practitioner; Visit Provider Nurse Practitioner
DX: E03.9 Hypothyroidism, unspecified (principal); I10 Essential (primary) hypertension; E78.2 Mixed hyperlipidemia; E78.00 Pure hypercholesterolemia, unspecified
CPT/HCPCS: 36415; 80053; 80061; 82043; 82570; 83036; 84443

== ENCOUNTER → 2021-03-25 13:24 | Outpatient (CLI) | payer MEDICARE, OTHER, SELFPAY | PROVIDERS: Family Provider Nurse Practitioner; PCP Nurse Practitioner; Referring Provider Nurse Practitioner; Visit Provider Nurse Practitioner | DX: E03.9 Hypothyroidism, unspecified (principal); E78.00 Pure hypercholesterolemia, unspecified; E78.2 Mixed hyperlipidemia; I10 Essential (primary) hypertension; Z87.891 Personal history of nicotine dependence; Z78.0 Asymptomatic menopausal state | CPT/HCPCS: 77080 ==

== ENCOUNTER 2021-06-05 09:00 | Outpatient (RCR) | payer MEDICARE, OTHER, SELFPAY ==
--- NOTE | 2021-04-17 10:56 | PT.OIE ---
Current Diagnoses Impingement syndrome of right shoulder (04/17/21) Past Medical History (Last Updated 01/31/21 @ 13:17 by JOCELYN Tineo) Acute sensory neuropathy Allergic rhinitis due to pollen (02/11/16) Anemia (02/11/16) Anemia Anxiety (~1973) Arrhythmia Asthma (~2004) Attention deficit hyperactivity disorder (ADHD), other type (02/11/16) Back pain Bipolar disorder (~1999) Cellulitis of right upper extremity (06/29/17) Chicken pox Coronary artery disease involving [place] coronary artery of [place] heart Coronary artery disease involving [place] coronary artery of [place] heart without angina pectoris (06/29/17) CPAP (continuous positive airway pressure) dependence Fibromyalgia (02/11/16) Gastroesophageal reflux disease without esophagitis (02/11/16) Generalized anxiety disorder (02/11/16) GERD (gastroesophageal reflux disease) (~2010) Hearing loss Hemorrhoid Herpes (~1977) History of heart attack (~06/2017) History of thyroid disorder History of tobacco abuse (02/11/16) History of urinary incontinence (~2017) History of urinary urgency Hyperlipidemia (~2009) 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) Impaired functional mobility, balance, gait, and endurance Incontinence Irritable bowel syndrome (~2007) Lumbar radiculopathy Measles Memory loss Migraine Migraine with visual aura (11/24/16) Mild intermittent asthma in adult without complication Moderate persistent asthma without complication (02/11/16) Mumps Obstructive sleep apnea syndrome (02/11/16) Pain, dental Palpitations Paresthesia of both feet (02/14/16) Paresthesia of both hands (02/14/16) Peripheral neuropathy Recurrent major depressive disorder, in partial remission (02/11/16) Rubella Sleep apnea Small fiber neuropathy Spinal headache ST elevation myocardial infarction (STEMI) (06/29/17) Tinnitus (~1967) Tobacco use disorder, moderate, in sustained remission, dependence Trigger finger of right hand Unsteady gait Vision disorder Past Surgical History (Last Reviewed 02/20/21 @ 09:43 by JOCELYN Tineo) Anesthesia Cataracts, bilateral (~12/2017) Dupuytren contracture History of arthroscopic knee surgery History of breast biopsy History of knee replacement (~2011) History of oophorectomy (~1988) Visit Care Team Role Provider Type JOCELYN Tineo Family Provider Advanced Nuclear Reactor Engineer Primary Care Provider Specialty: Family Practice Address: [address] [place] [address], [id number] Email: [email or web address] Imtiaz Ontiveros MD Attending Provider Physician Referring Provider Specialty: Orthopedic Surgery Address: [address] [place] [address], [id number] Email: [email or web address] Initial Evaluation PT-OP-A Visit Information Start: 04/17/21 10:27 Freq: Status: Active Protocol: Document 04/17/21 10:28 HH (Rec: 04/17/21 10:56 HH [email or web address]) Out-Patient Physical Therapy Visit Information Visit Information Visit Type Initial Evaluation Visit Start Time 09:45 Visit Stop Time 10:30 Total Visit Minutes 45 Visit Number 12/03 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 Pt stated she landed on her R shoulder directly after she slipped in the house. Her pain 4-5/10 started at the top of R spine of scapula. She has then been having difficulty abduct her arm and reaching behind her back to anderson clothes/ bra; picking up an weighted object is also difficult for her but she can reach overhead, drive and wash her hair. She said her pain has improved slightly since but still has trouble sleeping at night since she is a R side sleeper. Pt had x-ray done and no fx has shown and her orthopedist Dr. Ontiveros indicated this as possible bursitis. Prior Treatments and Tests no fx shown at R shoulder with X-ray. Current Functional Impairments (Reported) Functional Limitations- ADL's pain with donning jacket/ bra weakness and pain with holding a weighted object PT-OP-C Subjective Start: 04/17/21 10:27 Freq: Status: Active Protocol: Document 04/17/21 10:28 (Rec: 04/17/21 10:56 [email or web address]) Patient Questionnaires Quick Dash- Upper Extremity Quick Dash UE Score 31.8 Quick Dash UE Impairment 20 to 39% Impaired (Score 20- 39) PT-OP-E Functional Tests Start: 04/17/21 10:27 Freq: Status: Active Protocol: Document 04/17/21 10:28 (Rec: 04/17/21 10:56 [email or web address]) Functional Tests Apley's Scratch Test Action 2- Left CT junction Action 2- Right CT junction with slight pain at R shoulder Action 3- Left T2 Action 3- Right T4 with pain PT-OP-F Manual Assessment Start: 04/17/21 10:27 Freq: Status: Active Protocol: Document 04/17/21 10:28 (Rec: 04/17/21 10:56 [email or web address]) Manual Assessments Soft Tissue Assessment Soft Tissue Mobility Assessment significant tenderness to pressure at supraspinatus tendon and teres minor PT-OP-J Posture/Palpation/Skin Start: 04/17/21 10:27 Freq: Status: Active Protocol: Document 04/17/21 10:28 (Rec: 04/17/21 10:56 [email or web address]) Posture Evaluation Position Standing Evaluation View Lateral Head/C-Spine Posture Forward Head Shoulder Posture (R) Forward PT-OP-K Range of Motion Start: 04/17/21 10:27 Freq: Status: Active Protocol: Document 04/17/21 10:28 (Rec: 04/17/21 10:56 [email or web address]) Shoulder Goniometric Range of Motion Shoulder Left Active Shoulder ROM WFL Yes Testing Position Standing Flexion 180 Abduction 175 External Rotation at 90 degrees 95 Abduction Internal Rotation 95 Right Active Shoulder ROM WFL Yes Testing Position Standing Flexion 170 Abduction 175 External Rotation at 90 degrees 70 Abduction Internal Rotation 95 Comments ER reaches to 90 with posterior glide of GH head PT-OP-L Special Tests Start: 04/17/21 10:27 Freq: Status: Active Protocol: Document 04/17/21 10:28 (Rec: 04/17/21 10:56 [email or web address]) Special Tests Shoulder Special Tests painful arc Test Results +VE Comments pain at supraspinatus tendon region with initiation and at 90 abduction Speed's Biceps Test Results -ve Hope Test Test Results -ve External Rotation Lag Sign Test Results -ve Drop Arm Rotator Cuff Test Results -ve Comments pain noted at supraspinatus tendon region John James Impingement Test Results +ve Comments min discomfort only Empty Can Test Results +VE Comments pain noted at supraspinatus tendon region PT-OP-M Strength Start: 04/17/21 10:27 Freq: Status: Active Protocol: Document 04/17/21 10:28 (Rec: 04/17/21 10:56 [email or web address]) Shoulder Strength Shoulder Manual Muscle Testing Right Flexion 4+ Good+ Extension 4+ Good+ Abduction (C5) 4- Good- Adduction 4 Good External Rotation 4- Good- Internal Rotation 4- Good- Left Flexion 5 Normal Extension 5 Normal Abduction (C5) 5 Normal Adduction 5 Normal External Rotation 5 Normal Internal Rotation 5 Normal PT-OP-Q Treatments Start: 04/17/21 10:27 Freq: Status: Active Protocol: Document 04/17/21 10:28 (Rec: 04/17/21 10:56 [email or web address]) Therapeutic Exercises Standing Exercises tennis ball release Standing Exercise Name at teres minor Side right Comments for [facility] Manual Therapy Treatment Soft Tissue Mobilization RTC Body Location supraspinatus, teres minor Mobilization Type Myofascial Release Intensity/Depth Moderate Body Position Sitting Comments significant pain noted to pressure PT-OP-T Assessment and Plan Start: 04/17/21 10:27 Freq: Status: Active Protocol: Document 04/17/21 10:28 (Rec: 04/17/21 10:56 [email or web address]) Physical Therapy Assessment Rehab Potential Rehabilitation Potential Excellent Evaluation Complexity Number of Personal Factors/Comorbidities 1-2 Number of Body Systems Impaired 1-2 Clinical Presentation at Evaluation Stable Impairments Impairments Activity Tolerance,Functional Activities,Functional Mobility ,Pain,Posture,ROM,Soft Tissue Mobility,Strength Goals activity tolerance Impairment difficulty reaching behind her back, lifting Short Term Goal (STG) pt will show improved R shoulder mobility and strength to be able to anderson her jacket /bra without discomfort STG Duration 4 weeks Fdc Goal (LTG) pt will show improved R shoulder mobility and strength to be able to hold an object > 5lbs with R arm extended without discomfort. LTG Duration 8 weeks pain Impairment pt has 4/10 pain consistently Short Term Goal (STG) pt will be able to sleep through the night 4x/ week without waking up by her R shoulder pain STG Duration 4weeks Fdc Goal (LTG) pt will be able to sleep through the entire week without waking up by her R shoulder pain LTG Duration 8 weeks quickdash Impairment pt scrores 31.8 Short Term Goal (STG) pt will be able to score <25 on quickdash to show improved quality of life STG Duration 4 weeks Fdc Goal (LTG) pt will be able to score <15 on quickdash to show improved quality of life LTG Duration 8 weeks Assessment Summary Assessment Eli Smith is a 70 yo female here for R shoulder pain after her fall 2.5 months ago. Upon assessment, pt presents signs of R supraspinatus tendon strain d/t her mechanism of injury and symptoms. Pt overall shows good AROM at this point with pain mostly during ER/IR and abduction. She also presents anterior shoulder instability whose pain and ROM improved with posterior glide mostly d/t her FHP and anterior translated humeral head. Pt will benefit from skilled therapy to progressively strengthen her supraspinatus tendon, postural correction and improve her R shoulder stability. Physical Therapy Plan Frequency and Duration Frequency of Treatment 2x/Week Duration of Treatment 8 weeks Plan of Care Start Date 04/17/21 Plan of Care End Date 06/16/21 Therapeutic Interventions Therapeutic Interventions Home Exercise Program,Joint Mobilizations,Manual Therapy, Neuromuscular Re-education, Patient/Caregiver Education, Self-Care/Home Management,Soft Tissue Mobilization,Taping, Therapeutic Activities, Therapeutic Exercises Modalities Biofeedback,Cold Pack/Ice Massage,Electric Stimulation, Hot Packs,Infrared Therapy, Iontophoresis,Traction- Mechanical,Ultrasound Next Visit Focus/Plan Next Note Type Treatment Note Next Visit Plan review HEP assess sleeping position if support needed ER/IR exercises rtc strengthening ex.
--- NOTE | 2021-04-17 10:56 | PT.OPPOC ---
Physical, Occupational & Speech Therapy At [facility] Current Diagnoses Impingement syndrome of right shoulder (04/17/21) Visit Care Team Role Provider Type JOCELYN Tineo Family Provider Advanced Automotive Parts Clerk Primary Care Provider Specialty: Family Practice Address: [address] [place] [address], [id number] Email: [email or web address] Imtiaz Ontiveros MD Attending Provider Physician Referring Provider Specialty: Orthopedic Surgery Address: [address] [place] [address], [id number] Email: [email or web address] Plan Of Care PT-OP-T Assessment and Plan Start: 04/17/21 10:27 Freq: Status: Active Protocol: Document 04/17/21 10:28 (Rec: 04/17/21 10:56 [email or web address]) Physical Therapy Assessment Rehab Potential Rehabilitation Potential Excellent Evaluation Complexity Number of Personal Factors/Comorbidities 1-2 Number of Body Systems Impaired 1-2 Clinical Presentation at Evaluation Stable Impairments Impairments Activity Tolerance,Functional Activities,Functional Mobility ,Pain,Posture,ROM,Soft Tissue Mobility,Strength Goals activity tolerance Impairment difficulty reaching behind her back, lifting Short Term Goal (STG) pt will show improved R shoulder mobility and strength to be able to anderson her jacket /bra without discomfort STG Duration 4 weeks Wool Hat Flanger Goal (LTG) pt will show improved R shoulder mobility and strength to be able to hold an object > 5lbs with R arm extended without discomfort. LTG Duration 8 weeks pain Impairment pt has 4/10 pain consistently Short Term Goal (STG) pt will be able to sleep through the night 4x/ week without waking up by her R shoulder pain STG Duration 4weeks Wool Hat Flanger Goal (LTG) pt will be able to sleep through the entire week without waking up by her R shoulder pain LTG Duration 8 weeks quickdash Impairment pt scrores 31.8 Short Term Goal (STG) pt will be able to score <25 on quickdash to show improved quality of life STG Duration 4 weeks Custodial Goal (LTG) pt will be able to score <15 on quickdash to show improved quality of life LTG Duration 8 weeks Assessment Summary Assessment Eli Smith is a 70 yo female here for R shoulder pain after her fall 2.5 months ago. Upon assessment, pt presents signs of R supraspinatus tendon strain d/t her mechanism of injury and symptoms. Pt overall shows good AROM at this point with pain mostly during ER/IR and abduction. She also presents anterior shoulder instability whose pain and ROM improved with posterior glide mostly d/t her FHP and anterior translated humeral head. Pt will benefit from skilled therapy to progressively strengthen her supraspinatus tendon, postural correction and improve her R shoulder stability. Physical Therapy Plan Frequency and Duration Frequency of Treatment 2x/Week Duration of Treatment 8 weeks Plan of Care Start Date 04/17/21 Plan of Care End Date 06/16/21 Therapeutic Interventions Therapeutic Interventions Home Exercise Program,Joint Mobilizations,Manual Therapy, Neuromuscular Re-education, Patient/Caregiver Education, Self-Care/Home Management,Soft Tissue Mobilization,Taping, Therapeutic Activities, Therapeutic Exercises Modalities Biofeedback,Cold Pack/Ice Massage,Electric Stimulation, Hot Packs,Infrared Therapy, Iontophoresis,Traction- Mechanical,Ultrasound Next Visit Focus/Plan Next Note Type Treatment Note Next Visit Plan review HEP assess sleeping position if support needed ER/IR exercises rtc strengthening ex. Plan of Care Dates Plan of Care Start Date 04/17/21 Plan of Care End Date 06/16/21 Electronically Signed by: Remy Townsend PT 04/17/21 [id number] Please Sign and Return: I have reviewed this Plan of Care and certify that the skilled therapy services above are required to meet the patient?s needs. Physician Signature Date Printed Name and Credentials Clinical Instructor Signature Printed Name and Credentials
--- NOTE | 2021-04-21 15:13 | PT.OTN ---
Current Diagnoses Impingement syndrome of right shoulder (04/21/21) Physical Therapy Treatment Note PT-OP-A Visit Information Start: 04/17/21 10:27 Freq: Status: Active Protocol: Document 04/21/21 14:31 HH (Rec: 04/21/21 15:12 [id number]) Out-Patient Physical Therapy Visit Information Visit Information Visit Type Treatment Note Visit Start Time 14:32 Visit Stop Time 15:15 Total Visit Minutes 43 Visit Number 01/03 Number of NUTTER UP Visits 0 PT-OP-B Current Condition Start: 04/17/21 10:27 Freq: Status: Active Protocol: Document 04/17/21 10:28 HH (Rec: 04/17/21 10:56 HH [email or web address]) Current Condition History of Current Condition Onset Date 2.5 months ago Current Complaints R shoulder pain, difficulty reaching behind her back History of Current Condition Eli Smith is a 70 yo female here for her R shoulder pain after a fall from 2.5 months ago. Pt stated she landed on her R shoulder directly after she slipped in the house. Her pain 4-5/10 started at the top of R spine of scapula. She has then been having difficulty abduct her arm and reaching behind her back to anderson clothes/ bra; picking up an weighted object is also difficult for her but she can reach overhead, drive and wash her hair. She said her pain has improved slightly since but still has trouble sleeping at night since she is a R side sleeper. Pt had x-ray done and no fx has shown and her orthopedist Dr. Ontiveros indicated this as possible bursitis. Prior Treatments and Tests no fx shown at R shoulder with X-ray. Current Functional Impairments (Reported) Functional Limitations- ADL's pain with donning jacket/ bra weakness and pain with holding a weighted object PT-OP-C Subjective Start: 04/17/21 10:27 Freq: Status: Active Protocol: Document 04/21/21 14:31 HH (Rec: 04/21/21 15:12 [id number]) OP-PT Subjective Patient Comments Patient Comments Im feeling about the same. Krissy been trying the tennis ball. PT-OP-E Functional Tests Start: 04/17/21 10:27 Freq: Status: Active Protocol: Document 04/17/21 10:28 HH (Rec: 04/17/21 10:56 [email or web address]) Functional Tests Apley's Scratch Test Action 2- Left CT junction Action 2- Right CT junction with slight pain at R shoulder Action 3- Left T2 Action 3- Right T4 with pain PT-OP-F Manual Assessment Start: 04/17/21 10:27 Freq: Status: Active Protocol: Document 04/17/21 10:28 (Rec: 04/17/21 10:56 [email or web address]) Manual Assessments Soft Tissue Assessment Soft Tissue Mobility Assessment significant tenderness to pressure at supraspinatus tendon and teres minor PT-OP-J Posture/Palpation/Skin Start: 04/17/21 10:27 Freq: Status: Active Protocol: Document 04/17/21 10:28 (Rec: 04/17/21 10:56 [email or web address]) Posture Evaluation Position Standing Evaluation View Lateral Head/C-Spine Posture Forward Head Shoulder Posture (R) Forward PT-OP-K Range of Motion Start: 04/17/21 10:27 Freq: Status: Active Protocol: Document 04/17/21 10:28 (Rec: 04/17/21 10:56 [email or web address]) Shoulder Goniometric Range of Motion Shoulder Left Active Shoulder ROM WFL Yes Testing Position Standing Flexion 180 Abduction 175 External Rotation at 90 degrees 95 Abduction Internal Rotation 95 Right Active Shoulder ROM WFL Yes Testing Position Standing Flexion 170 Abduction 175 External Rotation at 90 degrees 70 Abduction Internal Rotation 95 Comments ER reaches to 90 with posterior glide of GH head PT-OP-L Special Tests Start: 04/17/21 10:27 Freq: Status: Active Protocol: Document 04/17/21 10:28 (Rec: 04/17/21 10:56 [email or web address]) Special Tests Shoulder Special Tests painful arc Test Results +VE Comments pain at supraspinatus tendon region with initiation and at 90 abduction Speed's Biceps Test Results -ve [place] Test Test Results -ve External Rotation Lag Sign Test Results -ve Drop Arm Rotator Cuff Test Results -ve Comments pain noted at supraspinatus tendon region John James Impingement Test Results +ve Comments min discomfort only Empty Can Test Results +VE Comments pain noted at supraspinatus tendon region PT-OP-M Strength Start: 04/17/21 10:27 Freq: Status: Active Protocol: Document 04/17/21 10:28 HH (Rec: 04/17/21 10:56 [email or web address]) Shoulder Strength Shoulder Manual Muscle Testing Right Flexion 4+ Good+ Extension 4+ Good+ Abduction (C5) 4- Good- Adduction 4 Good External Rotation 4- Good- Internal Rotation 4- Good- Left Flexion 5 Normal Extension 5 Normal Abduction (C5) 5 Normal Adduction 5 Normal External Rotation 5 Normal Internal Rotation 5 Normal PT-OP-Q Treatments Start: 04/17/21 10:27 Freq: Status: Active Protocol: Document 04/21/21 14:31 HH (Rec: 04/21/21 15:12 [id number]) Therapeutic Exercises Supine Exercises supine shoulder ER Supine Exercise Name AAROM Side right Equipment Used PVC Reps/Minutes 10 x2 Comments for HEP Sidelying Exercises shoulder ER Side right Reps/Minutes 10 x2 Comments cues on scap retraction, for HEP Standing Exercises scap retraction Side bilateral Reps/Minutes 10 x2 Comments for HEP Manual Therapy Treatment Soft Tissue Mobilization pecs Body Location pec minor Mobilization Type Myofascial Release,Sustained Pressure,Trigger Point Release Intensity/Depth Moderate Body Position Supine RTC Body Location supraspinatus, teres minor Mobilization Type Myofascial Release Intensity/Depth Moderate Body Position Sitting Comments significant pain noted to pressure Joint Mobilizations GHJ Direction posterior glide Grade III Body Position Supine Comments with passive ER and IR PT-OP-T Assessment and Plan Start: 04/17/21 10:27 Freq: Status: Active Protocol: Document 04/21/21 14:31 HH (Rec: 04/21/21 15:12 [id number]) Physical Therapy Assessment Goals activity tolerance Impairment difficulty reaching behind her back, lifting Short Term Goal (STG) pt will show improved R shoulder mobility and strength to be able to naderson her jacket /bra without discomfort STG Duration 4 weeks Usp Goal (LTG) pt will show improved R shoulder mobility and strength to be able to hold an object > 5lbs with R arm extended without discomfort. LTG Duration 8 weeks pain Impairment pt has 4/10 pain consistently Short Term Goal (STG) pt will be able to sleep through the night 4x/ week without waking up by her R shoulder pain STG Duration 4weeks Pool Nurse Goal (LTG) pt will be able to sleep through the entire week without waking up by her R shoulder pain LTG Duration 8 weeks quickdash Impairment pt scrores 31.8 Short Term Goal (STG) pt will be able to score <25 on quickdash to show improved quality of life STG Duration 4 weeks Pool Nurse Goal (LTG) pt will be able to score <15 on quickdash to show improved quality of life LTG Duration 8 weeks Assessment Summary Assessment initiated manual therapy followed by ROM ex today. Pt primarily has limited ER and IR. Provided HEP for her and will assess her tolerance next visit. Physical Therapy Plan Frequency and Duration Frequency of Treatment 2x/Week Duration of Treatment 8 weeks Plan of Care Start Date 04/17/21 Plan of Care End Date 06/16/21 Therapeutic Interventions Therapeutic Interventions Home Exercise Program,Joint Mobilizations,Manual Therapy, Neuromuscular Re-education, Patient/Caregiver Education, Self-Care/Home Management,Soft Tissue Mobilization,Taping, Therapeutic Activities, Therapeutic Exercises Modalities Biofeedback,Cold Pack/Ice Massage,Electric Stimulation, Hot Packs,Infrared Therapy, Iontophoresis,Traction- Mechanical,Ultrasound Discharge Physical Therapy Discharge Reasons No Longer Attending PT Discharge Comments Pt met most of her goals. Thank you for your referral. Next Visit Focus/Plan Next Note Type Treatment Note Next Visit Plan review HEP assess sleeping position if support needed ER/IR exercises rtc strengthening ex.
--- NOTE | 2021-04-23 14:32 | PT.OTN ---
Current Diagnoses Impingement syndrome of right shoulder (04/23/21) Physical Therapy Treatment Note PT-OP-A Visit Information Start: 04/17/21 10:27 Freq: Status: Active Protocol: Document 04/23/21 13:48 HH (Rec: 04/23/21 14:31 [id number]) Out-Patient Physical Therapy Visit Information Visit Information Visit Type Treatment Note Visit Start Time 13:48 Visit Stop Time 14:30 Total Visit Minutes 42 Visit Number 3/ Number of MANAGER TAX Visits 0 PT-OP-B Current Condition Start: 04/17/21 10:27 Freq: Status: Active Protocol: Document 04/17/21 10:28 HH (Rec: 04/17/21 10:56 HH [email or web address]) Current Condition History of Current Condition Onset Date 2.5 months ago Current Complaints R shoulder pain, difficulty reaching behind her back History of Current Condition Eli Smith is a 70 yo female here for her R shoulder pain after a fall from 2.5 months ago. Pt stated she landed on her R shoulder directly after she slipped in the house. Her pain 4-5/10 started at the top of R spine of scapula. She has then been having difficulty abduct her arm and reaching behind her back to anderson clothes/ bra; picking up an weighted object is also difficult for her but she can reach overhead, drive and wash her hair. She said her pain has improved slightly since but still has trouble sleeping at night since she is a R side sleeper. Pt had x-ray done and no fx has shown and her orthopedist Dr. Ontiveros indicated this as possible bursitis. Prior Treatments and Tests no fx shown at R shoulder with X-ray. Current Functional Impairments (Reported) Functional Limitations- ADL's pain with donning jacket/ bra weakness and pain with holding a weighted object PT-OP-C Subjective Start: 04/17/21 10:27 Freq: Status: Active Protocol: Document 04/23/21 13:48 HH (Rec: 04/23/21 14:31 HH [id number]) OP-PT Subjective Patient Comments Patient Comments I got a little sore yesterday and im recovered today. Krissy been doing my ex and they went well PT-OP-E Functional Tests Start: 04/17/21 10:27 Freq: Status: Active Protocol: Document 04/17/21 10:28 HH (Rec: 04/17/21 10:56 [email or web address]) Functional Tests Apley's Scratch Test Action 2- Left CT junction Action 2- Right CT junction with slight pain at R shoulder Action 3- Left T2 Action 3- Right T4 with pain PT-OP-F Manual Assessment Start: 04/17/21 10:27 Freq: Status: Active Protocol: Document 04/17/21 10:28 (Rec: 04/17/21 10:56 [email or web address]) Manual Assessments Soft Tissue Assessment Soft Tissue Mobility Assessment significant tenderness to pressure at supraspinatus tendon and teres minor PT-OP-J Posture/Palpation/Skin Start: 04/17/21 10:27 Freq: Status: Active Protocol: Document 04/17/21 10:28 (Rec: 04/17/21 10:56 [email or web address]) Posture Evaluation Position Standing Evaluation View Lateral Head/C-Spine Posture Forward Head Shoulder Posture (R) Forward PT-OP-K Range of Motion Start: 04/17/21 10:27 Freq: Status: Active Protocol: Document 04/17/21 10:28 (Rec: 04/17/21 10:56 [email or web address]) Shoulder Goniometric Range of Motion Shoulder Left Active Shoulder ROM WFL Yes Testing Position Standing Flexion 180 Abduction 175 External Rotation at 90 degrees 95 Abduction Internal Rotation 95 Right Active Shoulder ROM WFL Yes Testing Position Standing Flexion 170 Abduction 175 External Rotation at 90 degrees 70 Abduction Internal Rotation 95 Comments ER reaches to 90 with posterior glide of GH head PT-OP-L Special Tests Start: 04/17/21 10:27 Freq: Status: Active Protocol: Document 04/17/21 10:28 (Rec: 04/17/21 10:56 [email or web address]) Special Tests Shoulder Special Tests painful arc Test Results +VE Comments pain at supraspinatus tendon region with initiation and at 90 abduction Speed's Biceps Test Results -ve Dennison Test Test Results -ve External Rotation Lag Sign Test Results -ve Drop Arm Rotator Cuff Test Results -ve Comments pain noted at supraspinatus tendon region John James Impingement Test Results +ve Comments min discomfort only Empty Can Test Results +VE Comments pain noted at supraspinatus tendon region PT-OP-M Strength Start: 04/17/21 10:27 Freq: Status: Active Protocol: Document 04/17/21 10:28 HH (Rec: 04/17/21 10:56 HH [email or web address]) Shoulder Strength Shoulder Manual Muscle Testing Right Flexion 4+ Good+ Extension 4+ Good+ Abduction (C5) 4- Good- Adduction 4 Good External Rotation 4- Good- Internal Rotation 4- Good- Left Flexion 5 Normal Extension 5 Normal Abduction (C5) 5 Normal Adduction 5 Normal External Rotation 5 Normal Internal Rotation 5 Normal PT-OP-Q Treatments Start: 04/17/21 10:27 Freq: Status: Active Protocol: Document 04/23/21 13:48 HH (Rec: 04/23/21 14:31 [id number]) Therapeutic Exercises Supine Exercises shoulder IR Supine Exercise Name AAROM Side right Equipment Used PVC 10 x 2 Reps/Minutes 10x2 Comments no discomfort noted. supine shoulder ER Supine Exercise Name AAROM Side right Equipment Used PVC Reps/Minutes 10 x2 Comments improved ER noted. (stretching noted) Sidelying Exercises shoulder ER Side right Equipment Used towel underneath elbow Reps/Minutes 10 x2 Comments cues on scap retraction, for HEP Sitting Exercises OH venu Side bilateral Reps/Minutes 4 mins Comments flexion and abd Standing Exercises scap retraction Standing Exercise Name against wall, postural awareness Side bilateral Reps/Minutes 10 x2 Comments for HEP Manual Therapy Treatment Soft Tissue Mobilization pecs Body Location pec minor Mobilization Type Myofascial Release,Sustained Pressure,Trigger Point Release Intensity/Depth Moderate Body Position Supine RTC Body Location supraspinatus, teres minor Mobilization Type Myofascial Release Intensity/Depth Moderate Body Position Sitting Comments significant pain noted to pressure PT-OP-T Assessment and Plan Start: 04/17/21 10:27 Freq: Status: Active Protocol: Document 04/23/21 13:48 (Rec: 04/23/21 14:31 [email or web address]) Physical Therapy Assessment Goals activity tolerance Impairment difficulty reaching behind her back, lifting Short Term Goal (STG) pt will show improved R shoulder mobility and strength to be able to anderson her jacket /bra without discomfort STG Duration 4 weeks Press Tender Long Goods Goal (LTG) pt will show improved R shoulder mobility and strength to be able to hold an object > 5lbs with R arm extended without discomfort. LTG Duration 8 weeks pain Impairment pt has 4/10 pain consistently Short Term Goal (STG) pt will be able to sleep through the night 4x/ week without waking up by her R shoulder pain STG Duration 4weeks Residential Goal (LTG) pt will be able to sleep through the entire week without waking up by her R shoulder pain LTG Duration 8 weeks quickdash Impairment pt scrores 31.8 Short Term Goal (STG) pt will be able to score <25 on quickdash to show improved quality of life STG Duration 4 weeks Residential Goal (LTG) pt will be able to score <15 on quickdash to show improved quality of life LTG Duration 8 weeks Assessment Summary Assessment pt shows improved supine shoulder ER today and good understadning with her HEP. Added OH venu today and she crystal session well. Physical Therapy Plan Frequency and Duration Frequency of Treatment 2x/Week Duration of Treatment 8 weeks Plan of Care Start Date 04/17/21 Plan of Care End Date 06/16/21 Therapeutic Interventions Therapeutic Interventions Home Exercise Program,Joint Mobilizations,Manual Therapy, Neuromuscular Re-education, Patient/Caregiver Education, Self-Care/Home Management,Soft Tissue Mobilization,Taping, Therapeutic Activities, Therapeutic Exercises Modalities Biofeedback,Cold Pack/Ice Massage,Electric Stimulation, Hot Packs,Infrared Therapy, Iontophoresis,Traction- Mechanical,Ultrasound Discharge Physical Therapy Discharge Reasons No Longer Attending PT Discharge Comments Pt met most of her goals. Thank you for your referral. Next Visit Focus/Plan Next Note Type Treatment Note Next Visit Plan review HEP assess sleeping position if support needed ER/IR exercises rtc strengthening ex.
--- NOTE | 2021-04-28 13:46 | PT.OTN ---
Current Diagnoses Impingement syndrome of right shoulder (04/28/21) Physical Therapy Treatment Note PT-OP-A Visit Information Start: 04/17/21 10:27 Freq: Status: Active Protocol: Document 04/28/21 13:00 HH (Rec: 04/28/21 13:46 [id number]) Out-Patient Physical Therapy Visit Information Visit Information Visit Type Treatment Note Visit Start Time 13:03 Visit Stop Time 13:45 Total Visit Minutes 42 Visit Number 03/03 Number of BARK FITTER Visits 0 PT-OP-B Current Condition Start: 04/17/21 10:27 Freq: Status: Active Protocol: Document 04/17/21 10:28 HH (Rec: 04/17/21 10:56 HH [email or web address]) Current Condition History of Current Condition Onset Date 2.5 months ago Current Complaints R shoulder pain, difficulty reaching behind her back History of Current Condition Eli Smith is a 70 yo female here for her R shoulder pain after a fall from 2.5 months ago. Pt stated she landed on her R shoulder directly after she slipped in the house. Her pain 4-5/10 started at the top of R spine of scapula. She has then been having difficulty abduct her arm and reaching behind her back to anderson clothes/ bra; picking up an weighted object is also difficult for her but she can reach overhead, drive and wash her hair. She said her pain has improved slightly since but still has trouble sleeping at night since she is a R side sleeper. Pt had x-ray done and no fx has shown and her orthopedist Dr. Ontiveros indicated this as possible bursitis. Prior Treatments and Tests no fx shown at R shoulder with X-ray. Current Functional Impairments (Reported) Functional Limitations- ADL's pain with donning jacket/ bra weakness and pain with holding a weighted object PT-OP-C Subjective Start: 04/17/21 10:27 Freq: Status: Active Protocol: Document 04/28/21 13:00 HH (Rec: 04/28/21 13:46 [id number]) OP-PT Subjective Patient Comments Patient Comments I can move my shoulder out and back better which im able to reach to top of my head easier. I didnt wake up because of my shoulder as well . Patient Reported Progress Improving PT-OP-E Functional Tests Start: 06/03/21 10:27 Freq: Status: Active Protocol: Document 04/17/21 10:28 (Rec: 04/17/21 10:56 [email or web address]) Functional Tests Apley's Scratch Test Action 2- Left CT junction Action 2- Right CT junction with slight pain at R shoulder Action 3- Left T2 Action 3- Right T4 with pain PT-OP-F Manual Assessment Start: 04/17/21 10:27 Freq: Status: Active Protocol: Document 04/17/21 10:28 (Rec: 04/17/21 10:56 [email or web address]) Manual Assessments Soft Tissue Assessment Soft Tissue Mobility Assessment significant tenderness to pressure at supraspinatus tendon and teres minor PT-OP-J Posture/Palpation/Skin Start: 04/17/21 10:27 Freq: Status: Active Protocol: Document 04/17/21 10:28 (Rec: 04/17/21 10:56 [email or web address]) Posture Evaluation Position Standing Evaluation View Lateral Head/C-Spine Posture Forward Head Shoulder Posture (R) Forward PT-OP-K Range of Motion Start: 04/17/21 10:27 Freq: Status: Active Protocol: Document 04/17/21 10:28 (Rec: 04/17/21 10:56 [email or web address]) Shoulder Goniometric Range of Motion Shoulder Left Active Shoulder ROM WFL Yes Testing Position Standing Flexion 180 Abduction 175 External Rotation at 90 degrees 95 Abduction Internal Rotation 95 Right Active Shoulder ROM WFL Yes Testing Position Standing Flexion 170 Abduction 175 External Rotation at 90 degrees 70 Abduction Internal Rotation 95 Comments ER reaches to 90 with posterior glide of GH head PT-OP-L Special Tests Start: 04/17/21 10:27 Freq: Status: Active Protocol: Document 04/17/21 10:28 (Rec: 04/17/21 10:56 [email or web address]) Special Tests Shoulder Special Tests painful arc Test Results +VE Comments pain at supraspinatus tendon region with initiation and at 90 abduction Speed's Biceps Test Results -ve Crisp Test Test Results -ve External Rotation Lag Sign Test Results -ve Drop Arm Rotator Cuff Test Results -ve Comments pain noted at supraspinatus tendon region John James Impingement Test Results +ve Comments min discomfort only Empty Can Test Results +VE Comments pain noted at supraspinatus tendon region PT-OP-M Strength Start: 04/17/21 10:27 Freq: Status: Active Protocol: Document 04/17/21 10:28 HH (Rec: 04/17/21 10:56 [email or web address]) Shoulder Strength Shoulder Manual Muscle Testing Right Flexion 4+ Good+ Extension 4+ Good+ Abduction (C5) 4- Good- Adduction 4 Good External Rotation 4- Good- Internal Rotation 4- Good- Left Flexion 5 Normal Extension 5 Normal Abduction (C5) 5 Normal Adduction 5 Normal External Rotation 5 Normal Internal Rotation 5 Normal PT-OP-Q Treatments Start: 04/17/21 10:27 Freq: Status: Active Protocol: Document 04/28/21 13:00 HH (Rec: 04/28/21 13:46 [id number]) Therapeutic Exercises Supine Exercises scap punch Side bilateral Equipment Used PVC Reps/Minutes 10 x2 Comments cues on scap protraction supine shoulder ER Supine Exercise Name AAROM Side right Equipment Used PVC Reps/Minutes 10 x2 Comments improved ER noted. (stretching noted and no pain.) Sidelying Exercises shoulder abd Side right Reps/Minutes 10 x2 Comments up to 90 degrees. shoulder ER Side right Equipment Used towel underneath elbow Reps/Minutes 10 x2 Comments cues on scap retraction, no pain noted. Sitting Exercises OH venu Side bilateral Reps/Minutes 5 mins Comments flexion and abd, full ROM Standing Exercises scap retraction Standing Exercise Name against wall, postural awareness Side bilateral Reps/Minutes 10 x2 Comments for HEP Manual Therapy Treatment Soft Tissue Mobilization pecs Body Location pec minor Mobilization Type Myofascial Release,Sustained Pressure,Trigger Point Release Intensity/Depth Moderate Body Position Supine RTC Body Location supraspinatus, teres minor Mobilization Type Myofascial Release Intensity/Depth Moderate Body Position Sitting Comments reduced pain noted to pressure Joint Mobilizations GHJ Direction posterior glide Grade III Body Position Supine Comments with passive ER and IR PT-OP-T Assessment and Plan Start: 04/17/21 10:27 Freq: Status: Active Protocol: Document 04/28/21 13:00 (Rec: 04/28/21 13:46 [id number]) Physical Therapy Assessment Goals activity tolerance Impairment difficulty reaching behind her back, lifting Short Term Goal (STG) pt will show improved R shoulder mobility and strength to be able to anderson her jacket /bra without discomfort STG Duration 4 weeks Care Home Goal (LTG) pt will show improved R shoulder mobility and strength to be able to hold an object > 5lbs with R arm extended without discomfort. LTG Duration 8 weeks pain Impairment pt has 4/10 pain consistently Short Term Goal (STG) pt will be able to sleep through the night 4x/ week without waking up by her R shoulder pain STG Duration 4weeks Senior Account Manager Goal (LTG) pt will be able to sleep through the entire week without waking up by her R shoulder pain LTG Duration 8 weeks quickdash Impairment pt scrores 31.8 Short Term Goal (STG) pt will be able to score <25 on quickdash to show improved quality of life STG Duration 4 weeks Senior Account Manager Goal (LTG) pt will be able to score <15 on quickdash to show improved quality of life LTG Duration 8 weeks Assessment Summary Assessment pt shows improved night pain and ROM. Pt crystal well this session with UBE, added SL shoulder ABd, scap punch. Physical Therapy Plan Frequency and Duration Frequency of Treatment 2x/Week Duration of Treatment 8 weeks Plan of Care Start Date 04/17/21 Plan of Care End Date 06/16/21 Therapeutic Interventions Therapeutic Interventions Home Exercise Program,Joint Mobilizations,Manual Therapy, Neuromuscular Re-education, Patient/Caregiver Education, Self-Care/Home Management,Soft Tissue Mobilization,Taping, Therapeutic Activities, Therapeutic Exercises Modalities Biofeedback,Cold Pack/Ice Massage,Electric Stimulation, Hot Packs,Infrared Therapy, Iontophoresis,Traction- Mechanical,Ultrasound Next Visit Focus/Plan Next Note Type Treatment Note Next Visit Plan review HEP assess sleeping position if support needed ER/IR exercises rtc strengthening ex.
--- NOTE | 2021-04-30 13:47 | PT.OTN ---
Current Diagnoses Impingement syndrome of right shoulder (04/30/21) Physical Therapy Treatment Note PT-OP-A Visit Information Start: 04/17/21 10:27 Freq: Status: Active Protocol: Document 04/30/21 12:59 HH (Rec: 04/30/21 13:47 HH [id number]) Out-Patient Physical Therapy Visit Information Visit Information Visit Type Treatment Note Visit Start Time 13:01 Visit Stop Time 13:45 Total Visit Minutes 44 Visit Number 04/02 Number of SALES REPRESENTATIVE ADVERTISING Visits 0 PT-OP-B Current Condition Start: 04/17/21 10:27 Freq: Status: Active Protocol: Document 04/17/21 10:28 HH (Rec: 04/17/21 10:56 HH [email or web address]) Current Condition History of Current Condition Onset Date 2.5 months ago Current Complaints R shoulder pain, difficulty reaching behind her back History of Current Condition Eli Smith is a 70 yo female here for her R shoulder pain after a fall from 2.5 months ago. Pt stated she landed on her R shoulder directly after she slipped in the house. Her pain 4-5/10 started at the top of R spine of scapula. She has then been having difficulty abduct her arm and reaching behind her back to anderson clothes/ bra; picking up an weighted object is also difficult for her but she can reach overhead, drive and wash her hair. She said her pain has improved slightly since but still has trouble sleeping at night since she is a R side sleeper. Pt had x-ray done and no fx has shown and her orthopedist Dr. Ontiveros indicated this as possible bursitis. Prior Treatments and Tests no fx shown at R shoulder with X-ray. Current Functional Impairments (Reported) Functional Limitations- ADL's pain with donning jacket/ bra weakness and pain with holding a weighted object PT-OP-C Subjective Start: 04/17/21 10:27 Freq: Status: Active Protocol: Document 04/30/21 12:59 HH (Rec: 04/30/21 13:47 HH [id number]) OP-PT Subjective Patient Comments Patient Comments My shoulder is pretty stable without increase in pain. I can reach better overhead and behind my back Patient Reported Progress Improving PT-OP-E Functional Tests Start: 04/17/21 10:27 Freq: Status: Active Protocol: Document 04/17/21 10:28 (Rec: 04/17/21 10:56 [email or web address]) Functional Tests Apley's Scratch Test Action 2- Left CT junction Action 2- Right CT junction with slight pain at R shoulder Action 3- Left T2 Action 3- Right T4 with pain PT-OP-F Manual Assessment Start: 04/17/21 10:27 Freq: Status: Active Protocol: Document 04/17/21 10:28 (Rec: 04/17/21 10:56 [email or web address]) Manual Assessments Soft Tissue Assessment Soft Tissue Mobility Assessment significant tenderness to pressure at supraspinatus tendon and teres minor PT-OP-J Posture/Palpation/Skin Start: 04/17/21 10:27 Freq: Status: Active Protocol: Document 04/17/21 10:28 (Rec: 04/17/21 10:56 [email or web address]) Posture Evaluation Position Standing Evaluation View Lateral Head/C-Spine Posture Forward Head Shoulder Posture (R) Forward PT-OP-K Range of Motion Start: 04/17/21 10:27 Freq: Status: Active Protocol: Document 04/17/21 10:28 (Rec: 04/17/21 10:56 [email or web address]) Shoulder Goniometric Range of Motion Shoulder Left Active Shoulder ROM WFL Yes Testing Position Standing Flexion 180 Abduction 175 External Rotation at 90 degrees 95 Abduction Internal Rotation 95 Right Active Shoulder ROM WFL Yes Testing Position Standing Flexion 170 Abduction 175 External Rotation at 90 degrees 70 Abduction Internal Rotation 95 Comments ER reaches to 90 with posterior glide of GH head PT-OP-L Special Tests Start: 04/17/21 10:27 Freq: Status: Active Protocol: Document 04/17/21 10:28 (Rec: 04/17/21 10:56 [email or web address]) Special Tests Shoulder Special Tests painful arc Test Results +VE Comments pain at supraspinatus tendon region with initiation and at 90 abduction Speed's Biceps Test Results -ve Nolan Test Test Results -ve External Rotation Lag Sign Test Results -ve Drop Arm Rotator Cuff Test Results -ve Comments pain noted at supraspinatus tendon region John James Impingement Test Results +ve Comments min discomfort only Empty Can Test Results +VE Comments pain noted at supraspinatus tendon region PT-OP-M Strength Start: 06/03/21 10:27 Freq: Status: Active Protocol: Document 04/17/21 10:28 HH (Rec: 04/17/21 10:56 [email or web address]) Shoulder Strength Shoulder Manual Muscle Testing Right Flexion 4+ Good+ Extension 4+ Good+ Abduction (C5) 4- Good- Adduction 4 Good External Rotation 4- Good- Internal Rotation 4- Good- Left Flexion 5 Normal Extension 5 Normal Abduction (C5) 5 Normal Adduction 5 Normal External Rotation 5 Normal Internal Rotation 5 Normal PT-OP-Q Treatments Start: 04/17/21 10:27 Freq: Status: Active Protocol: Document 04/30/21 12:59 HH (Rec: 04/30/21 13:47 [id number]) Cardio Equipment Upper Body Ergometer (UBE) Duration (Minutes) 4 Other portable UBE, change direction every 30 seconds Therapeutic Exercises Supine Exercises scap punch Side bilateral Equipment Used PVC Reps/Minutes 10 x2 Comments cues on scap protraction supine shoulder ER Supine Exercise Name AAROM Side right Equipment Used PVC Reps/Minutes 10 x2 Comments improved ER noted. (stretching noted and no pain.) Sidelying Exercises shoulder ER Side right Equipment Used towel underneath elbow Reps/Minutes 15x1 ,12 x1 with 1lb DB Comments cues on scap retraction, no pain noted. Standing Exercises shoulder IR ER Resistance level 1 band Reps/Minutes 10 x2 Comments for HEP scap retraction Standing Exercise Name against wall, postural awareness Side bilateral Equipment Used level 1 band Reps/Minutes 10 x2 Comments for HEP Manual Therapy Treatment Soft Tissue Mobilization pecs Body Location pec minor Mobilization Type Myofascial Release,Sustained Pressure,Trigger Point Release Intensity/Depth Moderate Body Position Supine RTC Body Location supraspinatus, teres minor Mobilization Type Myofascial Release Intensity/Depth Moderate Body Position Sitting Comments reduced pain noted to pressure Joint Mobilizations GHJ Direction posterior glide Grade III Body Position Supine Comments with passive ER and IR PT-OP-T Assessment and Plan Start: 04/17/21 10:27 Freq: Status: Active Protocol: Document 04/30/21 12:59 HH (Rec: 04/30/21 13:47 [id number]) Physical Therapy Assessment Goals activity tolerance Impairment difficulty reaching behind her back, lifting Short Term Goal (STG) pt will show improved R shoulder mobility and strength to be able to anderson her jacket /bra without discomfort STG Duration 4 weeks Distance Learning Administrator Goal (LTG) pt will show improved R shoulder mobility and strength to be able to hold an object > 5lbs with R arm extended without discomfort. LTG Duration 8 weeks pain Impairment pt has 4/10 pain consistently Short Term Goal (STG) pt will be able to sleep through the night 4x/ week without waking up by her R shoulder pain STG Duration 4weeks Long-Term Goal (LTG) pt will be able to sleep through the entire week without waking up by her R shoulder pain LTG Duration 8 weeks quickdash Impairment pt scrores 31.8 Short Term Goal (STG) pt will be able to score <25 on quickdash to show improved quality of life STG Duration 4 weeks Long-Term Goal (LTG) pt will be able to score <15 on quickdash to show improved quality of life LTG Duration 8 weeks Assessment Summary Assessment Pt continously shows better shoulder ER. Modified her HEP today and added ER and scap retraction with elastic band Physical Therapy Plan Frequency and Duration Frequency of Treatment 2x/Week Duration of Treatment 8 weeks Plan of Care Start Date 04/17/21 Plan of Care End Date 06/16/21 Therapeutic Interventions Therapeutic Interventions Home Exercise Program,Joint Mobilizations,Manual Therapy, Neuromuscular Re-education, Patient/Caregiver Education, Self-Care/Home Management,Soft Tissue Mobilization,Taping, Therapeutic Activities, Therapeutic Exercises Modalities Biofeedback,Cold Pack/Ice Massage,Electric Stimulation, Hot Packs,Infrared Therapy, Iontophoresis,Traction- Mechanical,Ultrasound Next Visit Focus/Plan Next Note Type Treatment Note Next Visit Plan review HEP assess sleeping position if support needed ER/IR exercises rtc strengthening ex.
--- NOTE | 2021-05-21 11:13 | PT.OTN ---
Current Diagnoses Impingement syndrome of right shoulder (05/21/21) Physical Therapy Treatment Note PT-OP-A Visit Information Start: 04/17/21 10:27 Freq: Status: Active Protocol: Document 05/21/21 10:17 HH (Rec: 05/21/21 11:13 [id number]) Out-Patient Physical Therapy Visit Information Visit Information Visit Type Treatment Note Visit Note last visit 05/01 Visit Start Time 10:20 Visit Stop Time 11:10 Total Visit Minutes 50 Visit Number 05/03 Number of SUPERVISOR MOLDING Visits 0 PT-OP-B Current Condition Start: 04/17/21 10:27 Freq: Status: Active Protocol: Document 04/17/21 10:28 HH (Rec: 04/17/21 10:56 [email or web address]) Current Condition History of Current Condition Onset Date 2.5 months ago Current Complaints R shoulder pain, difficulty reaching behind her back History of Current Condition Eli Smith is a 70 yo female here for her R shoulder pain after a fall from 2.5 months ago. Pt stated she landed on her R shoulder directly after she slipped in the house. Her pain 4-5/10 started at the top of R spine of scapula. She has then been having difficulty abduct her arm and reaching behind her back to anderson clothes/ bra; picking up an weighted object is also difficult for her but she can reach overhead, drive and wash her hair. She said her pain has improved slightly since but still has trouble sleeping at night since she is a R side sleeper. Pt had x-ray done and no fx has shown and her orthopedist Dr. Ontiveros indicated this as possible bursitis. Prior Treatments and Tests no fx shown at R shoulder with X-ray. Current Functional Impairments (Reported) Functional Limitations- ADL's pain with donning jacket/ bra weakness and pain with holding a weighted object PT-OP-C Subjective Start: 04/17/21 10:27 Freq: Status: Active Protocol: Document 05/21/21 10:17 HH (Rec: 05/21/21 11:13 [id number]) OP-PT Subjective Patient Comments Patient Comments I dont have pain most of then time unless i do things then it will be a 2/10 pain. The pain only woke me up once for the past few weeks. I can anderson clothes, drive, wash my hair without problem Patient Reported Progress Improving PT-OP-E Functional Tests Start: 04/17/21 10:27 Freq: Status: Active Protocol: Document 04/17/21 10:28 (Rec: 04/17/21 10:56 [email or web address]) Functional Tests Apley's Scratch Test Action 2- Left CT junction Action 2- Right CT junction with slight pain at R shoulder Action 3- Left T2 Action 3- Right T4 with pain PT-OP-F Manual Assessment Start: 04/17/21 10:27 Freq: Status: Active Protocol: Document 04/17/21 10:28 HH (Rec: 04/17/21 10:56 [email or web address]) Manual Assessments Soft Tissue Assessment Soft Tissue Mobility Assessment significant tenderness to pressure at supraspinatus tendon and teres minor PT-OP-J Posture/Palpation/Skin Start: 04/17/21 10:27 Freq: Status: Active Protocol: Document 04/17/21 10:28 (Rec: 04/17/21 10:56 [email or web address]) Posture Evaluation Position Standing Evaluation View Lateral Head/C-Spine Posture Forward Head Shoulder Posture (R) Forward PT-OP-K Range of Motion Start: 04/17/21 10:27 Freq: Status: Active Protocol: Document 04/17/21 10:28 (Rec: 04/17/21 10:56 [email or web address]) Shoulder Goniometric Range of Motion Shoulder Left Active Shoulder ROM WFL Yes Testing Position Standing Flexion 180 Abduction 175 External Rotation at 90 degrees 95 Abduction Internal Rotation 95 Right Active Shoulder ROM WFL Yes Testing Position Standing Flexion 170 Abduction 175 External Rotation at 90 degrees 70 Abduction Internal Rotation 95 Comments ER reaches to 90 with posterior glide of GH head PT-OP-L Special Tests Start: 04/17/21 10:27 Freq: Status: Active Protocol: Document 04/17/21 10:28 (Rec: 04/17/21 10:56 [email or web address]) Special Tests Shoulder Special Tests painful arc Test Results +VE Comments pain at supraspinatus tendon region with initiation and at 90 abduction Speed's Biceps Test Results -ve [place] Test Test Results -ve External Rotation Lag Sign Test Results -ve Drop Arm Rotator Cuff Test Results -ve Comments pain noted at supraspinatus tendon region [place] Impingement Test Results +ve Comments min discomfort only Empty Can Test Results +VE Comments pain noted at supraspinatus tendon region PT-OP-M Strength Start: 04/17/21 10:27 Freq: Status: Active Protocol: Document 04/17/21 10:28 HH (Rec: 04/17/21 10:56 [email or web address]) Shoulder Strength Shoulder Manual Muscle Testing Right Flexion 4+ Good+ Extension 4+ Good+ Abduction (C5) 4- Good- Adduction 4 Good External Rotation 4- Good- Internal Rotation 4- Good- Left Flexion 5 Normal Extension 5 Normal Abduction (C5) 5 Normal Adduction 5 Normal External Rotation 5 Normal Internal Rotation 5 Normal PT-OP-Q Treatments Start: 04/17/21 10:27 Freq: Status: Active Protocol: Document 05/21/21 10:17 HH (Rec: 05/21/21 11:13 [id number]) Therapeutic Exercises Supine Exercises supine shoulder ER Supine Exercise Name AAROM Side right Equipment Used PVC Reps/Minutes 10 x2 Comments improved ER noted. (stretching noted and no pain.) Prone Exercises prone Y, T Prone Exercise Name for HEP Side right Reps/Minutes 8 x2 Comments cues on scap upward rotation Sidelying Exercises shoulder ER Side right Equipment Used towel underneath elbow Reps/Minutes 15x1 ,12 x1 with 1lb DB Comments cues on scap retraction, no pain noted. Standing Exercises shoulder ext Side bilateral Equipment Used with PVC Reps/Minutes 8x2 Comments with scap retraction, for HEP shoulder IR ER Standing Exercise Name with extended elbow, with hor abd Side bilateral Resistance level 1 band Reps/Minutes 8x2 Comments for HEP Manual Therapy Treatment Soft Tissue Mobilization pecs Body Location pec minor Mobilization Type Myofascial Release,Sustained Pressure,Trigger Point Release Intensity/Depth Moderate Body Position Supine RTC Body Location supraspinatus, teres minor Mobilization Type Myofascial Release Intensity/Depth Moderate Body Position Sitting Comments min discomfort. Discomfort mostly at bicep long head tendon Joint Mobilizations GHJ Direction posterior glide Grade III Body Position Supine Comments with passive ER and IR PT-OP-T Assessment and Plan Start: 04/17/21 10:27 Freq: Status: Active Protocol: Document 05/21/21 10:17 HH (Rec: 05/21/21 11:13 [id number]) Physical Therapy Assessment Goals activity tolerance Impairment difficulty reaching behind her back, lifting Short Term Goal (STG) pt will show improved R shoulder mobility and strength to be able to anderson her jacket /bra without discomfort STG Duration 4 weeks Chief Port Director Goal (LTG) pt will show improved R shoulder mobility and strength to be able to hold an object > 5lbs with R arm extended without discomfort. LTG Duration 8 weeks pain Impairment pt has 4/10 pain consistently Short Term Goal (STG) pt will be able to sleep through the night 4x/ week without waking up by her R shoulder pain STG Duration 4weeks Shelter Goal (LTG) pt will be able to sleep through the entire week without waking up by her R shoulder pain LTG Duration 8 weeks quickdash Impairment pt scrores 31.8 Short Term Goal (STG) pt will be able to score <25 on quickdash to show improved quality of life STG Duration 4 weeks Chief Port Director Goal (LTG) pt will be able to score <15 on quickdash to show improved quality of life LTG Duration 8 weeks Assessment Summary Assessment pt shows good progress with improved ROM, less pain, increaased activity tolerance. Her ER= 75 degrees but improved after manual therapy. She still has slight anterior translation during shoulder extension and ER. Added shoulder strengthening ex today. Possible DC in 2 visits . Physical Therapy Plan Frequency and Duration Frequency of Treatment 2x/Week Duration of Treatment 8 weeks Plan of Care Start Date 04/17/21 Plan of Care End Date 06/16/21 Therapeutic Interventions Therapeutic Interventions Home Exercise Program,Joint Mobilizations,Manual Therapy, Neuromuscular Re-education, Patient/Caregiver Education, Self-Care/Home Management,Soft Tissue Mobilization,Taping, Therapeutic Activities, Therapeutic Exercises Modalities Biofeedback,Cold Pack/Ice Massage,Electric Stimulation, Hot Packs,Infrared Therapy, Iontophoresis,Traction- Mechanical,Ultrasound Discharge Physical Therapy Discharge Reasons No Longer Attending PT Discharge Comments Pt met most of her goals. Thank you for your referral. Next Visit Focus/Plan Next Note Type Treatment Note Next Visit Plan review HEP assess sleeping position if support needed ER/IR exercises rtc strengthening ex.
--- NOTE | 2021-05-26 09:47 | PT.OTN ---
Current Diagnoses Impingement syndrome of right shoulder (05/26/21) Physical Therapy Treatment Note PT-OP-A Visit Information Start: 04/17/21 10:27 Freq: Status: Active Protocol: Document 05/26/21 08:12 HH (Rec: 05/26/21 09:47 [id number]) Out-Patient Physical Therapy Visit Information Visit Information Visit Type Treatment Note Visit Start Time 09:00 Visit Stop Time 09:45 Total Visit Minutes 45 Visit Number 06/02 Number of [employer]ULTANT Visits 0 PT-OP-B Current Condition Start: 04/17/21 10:27 Freq: Status: Active Protocol: Document 04/17/21 10:28 HH (Rec: 04/17/21 10:56 HH [email or web address]) Current Condition History of Current Condition Onset Date 2.5 months ago Current Complaints R shoulder pain, difficulty reaching behind her back History of Current Condition Eli Smith is a 70 yo female here for her R shoulder pain after a fall from 2.5 months ago. Pt stated she landed on her R shoulder directly after she slipped in the house. Her pain 4-5/10 started at the top of R spine of scapula. She has then been having difficulty abduct her arm and reaching behind her back to anderson clothes/ bra; picking up an weighted object is also difficult for her but she can reach overhead, drive and wash her hair. She said her pain has improved slightly since but still has trouble sleeping at night since she is a R side sleeper. Pt had x-ray done and no fx has shown and her orthopedist Dr. Ontiveros indicated this as possible bursitis. Prior Treatments and Tests no fx shown at R shoulder with X-ray. Current Functional Impairments (Reported) Functional Limitations- ADL's pain with donning jacket/ bra weakness and pain with holding a weighted object PT-OP-C Subjective Start: 04/17/21 10:27 Freq: Status: Active Protocol: Document 05/26/21 08:12 HH (Rec: 05/26/21 09:47 [id number]) OP-PT Subjective Patient Comments Patient Comments Im doing pretty good so far. The HEP doesnt bother me. I can feel the pull when i was doing the Y. I usually dont feel the pain unless i tried to lift something. Patient Reported Progress Improving PT-OP-E Functional Tests Start: 04/17/21 10:27 Freq: Status: Active Protocol: Document 04/17/21 10:28 (Rec: 04/17/21 10:56 [email or web address]) Functional Tests Apley's Scratch Test Action 2- Left CT junction Action 2- Right CT junction with slight pain at R shoulder Action 3- Left T2 Action 3- Right T4 with pain PT-OP-F Manual Assessment Start: 04/17/21 10:27 Freq: Status: Active Protocol: Document 04/17/21 10:28 (Rec: 04/17/21 10:56 [email or web address]) Manual Assessments Soft Tissue Assessment Soft Tissue Mobility Assessment significant tenderness to pressure at supraspinatus tendon and teres minor PT-OP-J Posture/Palpation/Skin Start: 04/17/21 10:27 Freq: Status: Active Protocol: Document 04/17/21 10:28 (Rec: 04/17/21 10:56 [email or web address]) Posture Evaluation Position Standing Evaluation View Lateral Head/C-Spine Posture Forward Head Shoulder Posture (R) Forward PT-OP-K Range of Motion Start: 04/17/21 10:27 Freq: Status: Active Protocol: Document 04/17/21 10:28 (Rec: 04/17/21 10:56 [email or web address]) Shoulder Goniometric Range of Motion Shoulder Left Active Shoulder ROM WFL Yes Testing Position Standing Flexion 180 Abduction 175 External Rotation at 90 degrees 95 Abduction Internal Rotation 95 Right Active Shoulder ROM WFL Yes Testing Position Standing Flexion 170 Abduction 175 External Rotation at 90 degrees 70 Abduction Internal Rotation 95 Comments ER reaches to 90 with posterior glide of GH head PT-OP-L Special Tests Start: 04/17/21 10:27 Freq: Status: Active Protocol: Document 04/17/21 10:28 (Rec: 04/17/21 10:56 [email or web address]) Special Tests Shoulder Special Tests painful arc Test Results +VE Comments pain at supraspinatus tendon region with initiation and at 90 abduction Speed's Biceps Test Results -ve [place] Test Test Results -ve External Rotation Lag Sign Test Results -ve Drop Arm Rotator Cuff Test Results -ve Comments pain noted at supraspinatus tendon region John James Impingement Test Results +ve Comments min discomfort only Empty Can Test Results +VE Comments pain noted at supraspinatus tendon region PT-OP-M Strength Start: 04/17/21 10:27 Freq: Status: Active Protocol: Document 04/17/21 10:28 HH (Rec: 04/17/21 10:56 HH [email or web address]) Shoulder Strength Shoulder Manual Muscle Testing Right Flexion 4+ Good+ Extension 4+ Good+ Abduction (C5) 4- Good- Adduction 4 Good External Rotation 4- Good- Internal Rotation 4- Good- Left Flexion 5 Normal Extension 5 Normal Abduction (C5) 5 Normal Adduction 5 Normal External Rotation 5 Normal Internal Rotation 5 Normal PT-OP-Q Treatments Start: 04/17/21 10:27 Freq: Status: Active Protocol: Document 05/26/21 08:12 HH (Rec: 05/26/21 09:47 [id number]) Cardio Equipment Upper Body Ergometer (UBE) Duration (Minutes) 4 Other portable UBE, change direction every 30 seconds Therapeutic Exercises Supine Exercises standing Y Equipment Used 2lbs DB Reps/Minutes 8 x2 Comments no discomfort Prone Exercises prone Y, T Prone Exercise Name for HEP Side right Reps/Minutes 8 x2 Comments cues on scap upward rotation Sidelying Exercises hor abd Side right Equipment Used 2lbs Reps/Minutes 10 x 2 shoulder abd Side right Equipment Used 2lbs Reps/Minutes 10 x2 Comments up to 90 degrees. Standing Exercises ball toss Side bilateral Comments slightly less coordinated on RUE shoulder IR ER Standing Exercise Name with extended elbow, with hor abd Side bilateral Resistance level 2 band Reps/Minutes 8x2 Comments for HEP Manual Therapy Treatment Joint Mobilizations GHJ Direction posterior glide, anterior glide, inferior glide Grade III Body Position Supine Comments with passive ER and IR, abd PT-OP-T Assessment and Plan Start: 04/17/21 10:27 Freq: Status: Active Protocol: Document 05/26/21 08:12 HH (Rec: 05/26/21 09:47 [id number]) Physical Therapy Assessment Goals activity tolerance Impairment difficulty reaching behind her back, lifting Short Term Goal (STG) pt will show improved R shoulder mobility and strength to be able to anderson her jacket /bra without discomfort STG Duration 4 weeks Long-Term Goal (LTG) pt will show improved R shoulder mobility and strength to be able to hold an object > 5lbs with R arm extended without discomfort. LTG Duration 8 weeks pain Impairment pt has 4/10 pain consistently Short Term Goal (STG) pt will be able to sleep through the night 4x/ week without waking up by her R shoulder pain STG Duration 4weeks [facility] Goal (LTG) pt will be able to sleep through the entire week without waking up by her R shoulder pain LTG Duration 8 weeks quickdash Impairment pt scrores 31.8 Short Term Goal (STG) pt will be able to score <25 on quickdash to show improved quality of life STG Duration 4 weeks [facility] Goal (LTG) pt will be able to score <15 on quickdash to show improved quality of life LTG Duration 8 weeks Assessment Summary Assessment pt is improving who only has slight discomfort at end range abd and ER 11/24. her ER= 82 degrees actively. Expect to DC her next visit. Physical Therapy Plan Frequency and Duration Frequency of Treatment 2x/Week Duration of Treatment 8 weeks Plan of Care Start Date 04/17/21 Plan of Care End Date 06/16/21 Therapeutic Interventions Therapeutic Interventions Home Exercise Program,Joint Mobilizations,Manual Therapy, Neuromuscular Re-education, Patient/Caregiver Education, Self-Care/Home Management,Soft Tissue Mobilization,Taping, Therapeutic Activities, Therapeutic Exercises Modalities Biofeedback,Cold Pack/Ice Massage,Electric Stimulation, Hot Packs,Infrared Therapy, Iontophoresis,Traction- Mechanical,Ultrasound Next Visit Focus/Plan Next Note Type Treatment Note Next Visit Plan review HEP assess sleeping position if support needed ER/IR exercises rtc strengthening ex.
--- NOTE | 2021-06-05 09:46 | PT.OTN ---
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 Pt stated she landed on her R shoulder directly after she slipped in the house. Her pain 4-5/10 started at the top of R spine of scapula. She has then been having difficulty abduct her arm and reaching behind her back to anderson clothes/ bra; picking up an weighted object is also difficult for her but she can reach overhead, drive and wash her hair. She said her pain has improved slightly since but still has trouble sleeping at night since she is a R side sleeper. Pt had x-ray done and no fx has shown and her orthopedist Dr. Ontiveros indicated this as possible bursitis. Prior Treatments and Tests no fx shown at R shoulder with X-ray. Current Functional Impairments (Reported) Functional Limitations- ADL's pain with donning jacket/ bra weakness and pain with holding a weighted object PT-OP-C Subjective Start: 04/17/21 10:27 Freq: Status: Active Protocol: Document 06/05/21 08:57 HH (Rec: 06/05/21 09:46 HH [id number]) OP-PT Subjective Patient Comments Patient Comments My shoulder is doing better now. I can get 6/7 hours sleep consistently now.. Reaching behind is still little bit uncomfortable but its like a /10.. Patient Reported Progress Improving PT-OP-E Functional Tests Start: 04/17/21 10:27 Freq: Status: Active Protocol: Document 04/17/21 10:28 (Rec: 04/17/21 10:56 [email or web address]) Functional Tests Apley's Scratch Test Action 2- Left CT junction Action 2- Right CT junction with slight pain at R shoulder Action 3- Left T2 Action 3- Right T4 with pain PT-OP-F Manual Assessment Start: 04/17/21 10:27 Freq: Status: Active Protocol: Document 04/17/21 10:28 (Rec: 04/17/21 10:56 [email or web address]) Manual Assessments Soft Tissue Assessment Soft Tissue Mobility Assessment significant tenderness to pressure at supraspinatus tendon and teres minor PT-OP-J Posture/Palpation/Skin Start: 04/17/21 10:27 Freq: Status: Active Protocol: Document 04/17/21 10:28 (Rec: 04/17/21 10:56 [email or web address]) Posture Evaluation Position Standing Evaluation View Lateral Head/C-Spine Posture Forward Head Shoulder Posture (R) Forward PT-OP-K Range of Motion Start: 04/17/21 10:27 Freq: Status: Active Protocol: Document 04/17/21 10:28 (Rec: 04/17/21 10:56 [email or web address]) Shoulder Goniometric Range of Motion Shoulder Left Active Shoulder ROM WFL Yes Testing Position Standing Flexion 180 Abduction 175 External Rotation at 90 degrees 95 Abduction Internal Rotation 95 Right Active Shoulder ROM WFL Yes Testing Position Standing Flexion 170 Abduction 175 External Rotation at 90 degrees 70 Abduction Internal Rotation 95 Comments ER reaches to 90 with posterior glide of GH head PT-OP-L Special Tests Start: 04/17/21 10:27 Freq: Status: Active Protocol: Document 04/17/21 10:28 (Rec: 04/17/21 10:56 [email or web address]) Special Tests Shoulder Special Tests painful arc Test Results +VE Comments pain at supraspinatus tendon region with initiation and at 90 abduction Speed's Biceps Test Results -ve [place] Test Test Results -ve External Rotation Lag Sign Test Results -ve Drop Arm Rotator Cuff Test Results -ve Comments pain noted at supraspinatus tendon region [employer] Impingement Test Results +ve Comments min discomfort only Empty Can Test Results +VE Comments pain noted at supraspinatus tendon region PT-OP-M Strength Start: 04/17/21 10:27 Freq: Status: Active Protocol: Document 04/17/21 10:28 HH (Rec: 04/17/21 10:56 HH [email or web address]) Shoulder Strength Shoulder Manual Muscle Testing Right Flexion 4+ Good+ Extension 4+ Good+ Abduction (C5) 4- Good- Adduction 4 Good External Rotation 4- Good- Internal Rotation 4- Good- Left Flexion 5 Normal Extension 5 Normal Abduction (C5) 5 Normal Adduction 5 Normal External Rotation 5 Normal Internal Rotation 5 Normal PT-OP-Q Treatments Start: 04/17/21 10:27 Freq: Status: Active Protocol: Document 06/05/21 08:57 HH (Rec: 06/05/21 09:46 [id number]) Gym Equipment Cable Column (Body Solid) scap row Resistance 20 lbs Reps/Time no discomfort, x10 pull down Resistance 20lbs Reps/Time no discomfort, x10 Therapeutic Exercises Supine Exercises standing Y Equipment Used 2lbs DB Reps/Minutes 8 x2 Comments no discomfort supine shoulder ER Supine Exercise Name AAROM Side right Equipment Used PVC Reps/Minutes 10 x2 Comments improved ER noted. (stretching noted and no pain.) Prone Exercises prone Y, T Prone Exercise Name for HEP Side right Reps/Minutes 8 x2 Comments cues on scap upward rotation Sidelying Exercises shoulder abd Side right Equipment Used 2lbs Reps/Minutes 10 x2 Comments up to 90 degrees. Standing Exercises shoulder abd Side right Equipment Used 1lb DB Comments for HEP shoulder ext Side bilateral Equipment Used with PVC Reps/Minutes 8x2 Comments with scap retraction, for HEP Manual Therapy Treatment Joint Mobilizations GHJ Direction posterior glide, anterior glide, inferior glide Grade III Body Position Supine Comments with passive ER and IR, abd PT-OP-T Assessment and Plan Start: 04/17/21 10:27 Freq: Status: Active Protocol: Document 06/05/21 08:57 HH (Rec: 06/05/21 09:46 [email or web address]) Physical Therapy Assessment Goals activity tolerance Impairment difficulty reaching behind her back, lifting Short Term Goal (STG) pt will show improved R shoulder mobility and strength to be able to anderson her jacket /bra without discomfort STG Duration 4 weeks Die Cast Operator Goal (LTG) pt will show improved R shoulder mobility and strength to be able to hold an object > 5lbs with R arm extended without discomfort. LTG Duration 8 weeks pain Impairment pt has 4/10 pain consistently Short Term Goal (STG) pt will be able to sleep through the night 4x/ week without waking up by her R shoulder pain STG Duration 4weeks Alf Goal (LTG) pt will be able to sleep through the entire week without waking up by her R shoulder pain LTG Duration 8 weeks quickdash Impairment pt scrores 31.8 Short Term Goal (STG) pt will be able to score <25 on quickdash to show improved quality of life STG Duration 4 weeks Die Cast Operator Goal (LTG) pt will be able to score <15 on quickdash to show improved quality of life LTG Duration 8 weeks Progress Towards Goals Progress Towards Goals Goals Met Assessment Summary Assessment pt is progressing very well who is able to sleep on her R side, regain most of her strength and full ROM. She feels comfortable to be DC at this point. Spent time reviewing her shoulder workout from her gym which involves lat pull down, scap row, shoulder extension with band, standing Y. She was able to complete without discomfort. Physical Therapy Plan Frequency and Duration Frequency of Treatment 2x/Week Duration of Treatment 8 weeks Plan of Care Start Date 04/17/21 Plan of Care End Date 06/16/21 Therapeutic Interventions Therapeutic Interventions Home Exercise Program,Joint Mobilizations,Manual Therapy, Neuromuscular Re-education, Patient/Caregiver Education, Self-Care/Home Management,Soft Tissue Mobilization,Taping, Therapeutic Activities, Therapeutic Exercises Modalities Biofeedback,Cold Pack/Ice Massage,Electric Stimulation, Hot Packs,Infrared Therapy, Iontophoresis,Traction- Mechanical,Ultrasound Discharge Physical Therapy Discharge Reasons No Longer Attending PT Discharge Comments Pt met most of her goals. Thank you for your referral. Next Visit Focus/Plan Next Note Type Treatment Note Next Visit Plan review HEP assess sleeping position if support needed ER/IR exercises rtc strengthening ex.
== END 2021-06-09 10:06 | disposition home or self-care (01) ==
LOC: PHYS 09:00
PROVIDERS: Family Provider Nurse Practitioner; PCP Nurse Practitioner; Referring Provider Orthopaedic Surgery; Visit Provider Orthopaedic Surgery
DX: M75.41 Impingement syndrome of right shoulder (principal)
CPT/HCPCS: 97110; 97140; 97161

== ENCOUNTER → 2021-11-21 11:21 | Outpatient (CLI) | payer MEDICARE, OTHER, SELFPAY ==
--- NOTE | 2021-11-21 11:23 | DI.RAD.S_ITS ---
PROCEDURE: XR CHEST 2V INDICATIONS: Lymphadenopathy bilateral neck TECHNIQUE: 2 views of the chest were acquired. COMPARISON: [facility], CT, CT LOW DOSE LUNG CA SCREENING, 02/10/2021, 9:40. [facility], [place], CHEST 2 VIEW, 03/02/2016, 14:41. [facility], [place], CHEST 2 VIEW, 11/11/2009, 16:20. FINDINGS: Surgical changes and devices: None. Lungs and pleura: Lungs are clear. No pleural effusions or pneumothorax. Mediastinum: Mediastinal contours are unchanged. Heart size is normal. Bones and chest wall: No suspicious bony abnormalities. Soft tissues appear unremarkable. IMPRESSION: No acute cardiopulmonary abnormality. Consider further evaluation with CT neck with IV contrast or ultrasound. Dictated by: Bhavin Teixeira M.D. on 11/21/2021 at 12:03 Approved by: Bhavin Teixeira M.D. on 11/21/2021 at 12:04
[2021-11-21 15:55] LABS: Vitamin D 25 Hydroxy (D3) 32.2 ng/mL (30.0-100.0)
== END ==
PROVIDERS: Family Provider Nurse Practitioner; PCP Nurse Practitioner; Referring Provider Nurse Practitioner; Visit Provider Nurse Practitioner
DX: Z86.39 Personal history of other endocrine, nutritional and metabolic disease (principal); R59.1 Generalized enlarged lymph nodes; F32.A Depression, unspecified
CPT/HCPCS: 36415; 71046; 82306

== ENCOUNTER → 2021-12-04 08:49 | Outpatient (CLI) | payer MEDICARE, OTHER, SELFPAY ==
--- NOTE | 2021-12-04 08:53 | DI.CT.S_ITS ---
PROCEDURE: CT SOFT TISSUE NECK W CON INDICATIONS: Bilateral enlarged lymph nodes without sign of infection TECHNIQUE: After the administration of intravenous contrast, 3.0 mm axial sections acquired from the sella to the aortic arch. Additional oblique axial 3.0 mm sections acquired through the pharynx. 3 mm thick coronal and sagittal reformats were generated. For radiation dose reduction, the following was used: automated exposure control. COMPARISON: None. FINDINGS: Image quality: Excellent. Lymph nodes: No enlarged lymph nodes seen throughout the neck. Vessels: Visualized vasculature appears patent. Atherosclerotic calcification is noted. Neck spaces: The oropharynx, nasopharynx, and pharynx demonstrate no mucosal lesions. The vocal cords, false vocal cords, pyriform sinuses, epiglottis, vallecula, and tongue base all appear normal. Extramucosal spaces appear unremarkable. Glands: The right submandibular gland is not seen. There is a stone seen along the expected course of the right submandibular duct, as on series 2, image 36. The left submandibular gland is within normal limits. The parotid glands appear normal. Thyroid gland demonstrates no significant abnormality. Miscellaneous: Visualized brain and orbits appear normal. Lung apices appear clear. Superficial soft tissues appear normal. Bones: No suspicious bony lesions. Visualized sinuses and mastoids appear unremarkable. Moderate to prominent cervical spine degenerative change can be seen. There is reversal of the normal cervical lordosis, with the apex at the C4 level. Minimal retrolisthesis is seen at C4-C5 and C6-C7. Moderate to severe disc space narrowing is seen at C4-C5, C5-C6, and C6-C7. IMPRESSION: No enlarged lymph nodes are seen. No masses are detected. Nonvisualized right submandibular gland. Atrophy from a ductal stone is suspected. Moderate to prominent cervical spine degenerative change is seen. Dictated by: Zackary Valdez M.D. on 12/04/2021 at 8:59 Approved by: Zackary Valdez M.D. on 12/04/2021 at 9:01
[2021-12-04 09:21] LABS: BUN Creatinine Ratio 25.8 (6-22); Blood Urea Nitrogen 16 mg/dL (7-17); Calcium 9.3 mg/dL (8.4-10.2); Carbon Dioxide 32 mmol/L (22-32); Chloride 103 mmol/L (98-107); Estimated Glomerular Filt Rate > 60.0 mL/min (>60); Glucose 116 mg/dL (80-110); HEMOLYSIS < 15 (0-50); Potassium 4.3 mmol/L (3.4-5.1); Sodium 139 mmol/L (137-145)
== END ==
PROVIDERS: Family Provider Nurse Practitioner; PCP Nurse Practitioner; Referring Provider Nurse Practitioner; Visit Provider Nurse Practitioner
DX: R59.9 Enlarged lymph nodes, unspecified (principal); Z01.812 Encounter for preprocedural laboratory examination; M47.812 Spondylosis without myelopathy or radiculopathy, cervical region
CPT/HCPCS: 36415; 70491; 80048; Q9967

== ENCOUNTER 2022-02-09 08:27 | Emergency (ER) | payer MEDICARE, OTHER, SELFPAY ==
[2022-02-09 08:30] VITALS: BP 183/82; PULSE 85; RESP 18; TEMP 36.8; O2SAT 97; BMI 22.2
[2022-02-09 08:54] LABS: Add Manual Diff / Slide Review NO; Basophils Absolute Auto 100 /uL (0-100); Basophils Percent Auto 1.1 % (0-2); Eosinophils Absolute Auto 100 /uL (0-450); Eosinophils Percent Auto 1.3 % (2-4); Hematocrit 37.7 % (36-46); Hemoglobin 12.7 g/dL (12.0-16.0); Lymphocytes Absolute Auto 1400 /uL (1100-4500); Lymphocytes Percent Auto 26.2 % (25-40); Mean Corpuscular HGB Conc 33.6 % (30-36); Mean Corpuscular Hemoglobin 29.1 PG (26-34); Mean Corpuscular Volume 86.7 fL (80-100); Monocytes Absolute Auto 300 /uL (0-900); Monocytes Percent Auto 5.9 % (3-14); Neutrophils Absolute Auto 3500 /uL (1500-7000); Neutrophils Percent Auto 65.5 % (50-75); Platelet Count 208 X10^3/uL (150-400); Red Blood Cell Count 4.35 X10^6/uL (4.0-5.2); Red Cell Distribution Width 13.5 % (11.6-14.8); White Blood Cell Count 5.3 X10^3/uL (4.5-11.0)
--- NOTE | 2022-02-09 08:55 | DI.RAD.S_ITS ---
PROCEDURE: XR RIBS RT MIN 3V W CXR 1V INDICATIONS: fall r rib pain. TECHNIQUE: 2 views of the right ribs were acquired, along with a single view chest. COMPARISON: [facility], CR, XR CHEST 2V, 11/21/2021, 12:45. [facility], CT, CT LOW DOSE LUNG CA SCREENING, 02/10/2021, 9:40. FINDINGS: Surgical changes and devices: None. Bones and chest wall: Subtle undulation of the right anterior 7th rib and possibly the lateral 10th rib. No dislocations. No suspicious bony lesions. Mild scoliosis. Overlying soft tissues appear unremarkable. Lungs and pleura: No pleural effusions or pneumothorax. Lungs appear clear. Mediastinum: Mediastinal contours appear unchanged. Heart size is normal. IMPRESSION: Possible nondisplaced right anterior 7th rib fracture. Possible nondisplaced right lateral 10th rib fracture. There may be additional occult nondisplaced fractures. If clinically indicated this could be further evaluated with CT of the chest. Dictated by: Bhavin Teixeira M.D. on 02/09/2022 at 9:14 Approved by: Bhavin Teixeira M.D. on 02/09/2022 at 9:19
--- NOTE | 2022-02-09 08:55 | ED_ITS ---
HPI - Fall General Chief Complaint: Fall Stated Complaint: Fell, pain right underarm Time Seen by Provider: 02/09/22 08:30 Source: patient Mode of arrival: Ambulatory History of Present Illness HPI Narrative: Patient is a 71-year-old female. She has pain in her right armpit that she has been having for several weeks/months. She has seen her primary doctor. Had a mammogram performed about 1.5 months ago that she states was unremarkable. She has not yet followed up with her primary doctor for further evaluation of this arm pain. She called to schedule a follow-up it was going to be 2 weeks before she can get in to see someone. She went to the walk-in clinic because of this right armpit pain for evaluation and also because she fell on Wednesday. She states she is unsure exactly how she fell though she was cleaning out her house and she was caring things in her arms at the time. She thinks she tripped over something on the ground but is not sure. She does know that she did not have chest pain or shortness of breath no lightheadedness or palpitations prior to the fall. She has had pain over her right ribs since the fall. This is a different pain from her right armpit. She is unsure if she hit her head but there was no apparent loss of consciousness. She has been ambulatory since the event. Because of the fall she was sent to the emergency department from the walk-in clinic. Related Data Home Medications Medication Instructions Recorded Confirmed aripiprazole 2 mg tablet (Abilify) 2 mg PO QDAY #90 tab 08/05/17 02/09/22 aspirin 81 mg chewable tablet 81 mg PO QDAY #90 tab 08/05/17 02/09/22 cholecalciferol (vitamin D3) 50 2,000 u PO QDAY #90 tab 08/05/17 02/09/22 mcg (2,000 unit) tablet (Vitamin D3) nitroglycerin 0.4 mg sublingual 0.4 mg SUBLINGUAL SEE INSTRUCTIONS 08/05/17 02/09/22 tablet (Nitrostat) #100 tab metoprolol tartrate 50 mg tablet 25 mg PO BID #90 tab 01/30/19 02/09/22 (Lopressor) Resmed Aircurve 10 BIPAP #1 ea 03/22/19 02/09/22 pravastatin 80 mg tablet 80 mg PO DAILY 05/15/19 02/09/22 gabapentin 300 mg capsule 300 mg PO TID 01/29/21 02/09/22 Previous Rx's Medication Instructions Recorded albuterol sulfate 90 mcg/actuation 2 puff INHALATION Q4H PRN #3 02/05/20 aerosol inhaler (Proventil HFA) inhalation beclomethasone dipropionate 80 1 inh INHALATION BID #31.8 gram 02/05/20 mcg/actuation HFA breath activated aerosol (Qvar RediHaler) acyclovir 800 mg tablet 800 mg PO BID 5 Days #10 tab 06/27/20 tetanus and diphther. tox (PF) 5 0.5 ml IM ONCE #0.5 ml 01/29/21 Lf unit-2 Lf unit/0.5 mL IM syringe mupirocin 2 % topical ointment 1 applic TOPICAL BID #30 g 03/09/21 Allergies Allergy/AdvReac Type Severity Reaction Status Date / Time Sulfa (Sulfonamide Allergy Severe ANAPHYLAXIS Verified 02/09/22 08:39 Antibiotics) [SULFA (SULFONAMIDE ANTIBIOTICS)] lamotrigine [LAMOTRIGINE] Allergy Mild RASH AND Verified 02/09/22 08:39 PRURITUS amitriptyline [AMITRIPTYLINE] AdvReac Mild ELEVATION Verified 02/09/22 08:39 IN B/P, DIZZINESS AND NAUSEA codeine [CODEINE] AdvReac Mild NAUSEA Verified 02/09/22 08:39 erythromycin base AdvReac Mild DIARRHEA Verified 02/09/22 08:39 [ERYTHROMYCIN BASE] AND VOMITING hydrocodone [HYDROCODONE] AdvReac Mild APPETITE Verified 02/09/22 08:39 AND WEIGHT LOSS meperidine [MEPERIDINE] AdvReac Mild HALLUCINATI Verified 02/09/22 08:39 ONS oxycodone [OXYCODONE] AdvReac Mild SLEEPLESSNE Verified 02/09/22 08:39 SS topiramate [TOPIRAMATE] AdvReac Mild HANDS AND Verified 02/09/22 08:39 FEET..BURNING SENSATION Review of Systems Review of Systems ROS Unobtainable: All systems reviewed & are unremarkable except as noted in HPI and below Patient History Medical History Acute sensory neuropathy Allergic rhinitis due to pollen (02/11/16) Anemia (02/11/16) Anemia Anxiety (~1973) Arrhythmia Asthma (~2004) Attention deficit hyperactivity disorder (ADHD), other type (02/11/16) Back pain Bipolar disorder (~1999) Cellulitis of right upper extremity (06/29/17) Chicken pox Coronary artery disease involving [place] coronary artery of [place] heart Coronary artery disease involving [place] coronary artery of [place] heart without angina pectoris (06/29/17) CPAP (continuous positive airway pressure) dependence Fibromyalgia (02/11/16) Gastroesophageal reflux disease without esophagitis (02/11/16) Generalized anxiety disorder (02/11/16) GERD (gastroesophageal reflux disease) (~2010) Hearing loss Hemorrhoid Herpes (~1977) History of heart attack (~06/2017) History of thyroid disorder History of tobacco abuse (02/11/16) History of urinary incontinence (~2017) History of urinary urgency Hyperlipidemia (~2009) 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) Impaired functional mobility, balance, gait, and endurance Incontinence Irritable bowel syndrome (~2007) Lumbar radiculopathy Measles Memory loss Migraine Migraine with visual aura (11/24/16) Mild intermittent asthma in adult without complication Moderate persistent asthma without complication (02/11/16) Mumps Obstructive sleep apnea syndrome (02/11/16) Pain, dental Palpitations Paresthesia of both feet (02/14/16) Paresthesia of both hands (02/14/16) Peripheral neuropathy Recurrent major depressive disorder, in partial remission (02/11/16) Rubella Sleep apnea Small fiber neuropathy Spinal headache ST elevation myocardial infarction (STEMI) (06/29/17) Tinnitus (~1967) Tobacco use disorder, moderate, in sustained remission, dependence Trigger finger of right hand Unsteady gait Vision disorder Surgical History Anesthesia Cataracts, bilateral (~12/2017) Dupuytren contracture History of arthroscopic knee surgery History of breast biopsy History of knee replacement (~2011) History of oophorectomy (~1988) Family History Mother Cancer Brother Mental health problem Social History marital status: details: kourtney Garcia, lives on [address] household members: spouse lives independently: Yes caregiver/support person: No housing: house pets and animals: Yes ([facility]) education level: college Smoking Status: Former smoker Smoking Status: Former smoker Substance Use Type: does not use Exam Initial Vital Signs Initial Vital Signs: Vital Signs Temperature 98.2 F 02/09/22 08:30 Pulse Rate 85 02/09/22 08:30 Respiratory Rate 18 02/09/22 08:30 Blood Pressure 183/82 H 02/09/22 08:30 Pulse Oximetry 97 02/09/22 08:30 Const General: healthy appearing and comfortable HENMT Head: normal to inspection and normocephalic Chest Chest: normal inspection of the chest and No tenderness Resp Effort & Inspection: normal respiratory effort Auscultation: clear to auscultation bilaterally Cardio Rate: regular rate Rhythm: regular rhythm GI Inspection: normal to inspection Skin Other: Patient with a quarter-size bruise over the lateral anterior axillary mid ribs that is tender to palpation. There is no skin changes in the right armpit. Neuro General: patient alert, patient awake, patient oriented x3 and moves all extremities Extrem Other: Patient's right armpit is unremarkable. There is no masses. There is no skin discoloration. She has full range of motion of the right shoulder. Psych Appearance: grossly normal and well kempt Course Orders Ordered: ED Orders 02/09/22 08:33 EKG-12 Lead Stat 02/09/22 08:45 Basic Metabolic Panel Stat Complete Blood Count AUTO DIFF Stat 02/09/22 08:55 XR ribs RT min 3V w CXR1V Stat Vital Signs Vital signs: Vital Signs - 8 hr 02/09/22 08:30 Temperature 98.2 F Pulse Rate 85 Respiratory Rate 18 Blood Pressure 183/82 H Pulse Oximetry 97 MDM - Fall Lab Data Result diagrams: 02/09/22 08:45 02/09/22 08:45 Labs: Lab Results 02/09/22 02/09/22 Range/Units 08:45 08:45 WBC 5.3 (4.5-11.0) X10^3/uL RBC 4.35 (4.0-5.2) X10^6/uL Hgb 12.7 (12.0-16.0) g/dL Hct 37.7 (36-46) % MCV 86.7 (80-100) fL MCH 29.1 (26-34) PG MCHC 33.6 (30-36) % RDW 13.5 (11.6-14.8) % Plt Count 208 (150-400) X10^3/uL Neut % (Auto) 65.5 (50-75) % Lymph % (Auto) 26.2 (25-40) % [place] % (Auto) 5.9 (3-14) % Eos % (Auto) 1.3 L (2-4) % Baso % (Auto) 1.1 (0-2) % Neut # (Auto) 3500 (5301-6204) /uL Lymph # (Auto) 1400 (9976-2167) /uL [place] # (Auto) 300 (0-900) /uL Eos # (Auto) 100 (0-450) /uL Baso # (Auto) 100 (0-100) /uL Sodium 139 (137-145) mmol/L Potassium 3.7 (3.4-5.1) mmol/L Chloride 104 (98-107) mmol/L Carbon Dioxide 28 (22-32) mmol/L BUN 17 (7-17) mg/dL Creatinine 0.70 (0.52-1.04) mg/dL Estimated GFR > 60.0 (>60) mL/min BUN/Creatinine Ratio 24.3 H (6-22) Glucose 140 H (80-110) mg/dL Calcium 9.1 (8.4-10.2) mg/dL Imaging Data rib X-ray: Radiologist's Impression: [address] [address] XRay Report Signed Patient: Eli Brothers MR#: [id number] : 1950 Acct:[id number] Age/Sex: 71 / F Date of Service: 02/09/22 Loc: ED Accession Number: [id number] ?? Procedure: XR ribs RT min 3V w CXR1V Ordering Provider: Magdy Melendrez D.O. PROCEDURE:? XR RIBS RT MIN 3V W CXR 1V ? INDICATIONS:? fall r rib pain. ? TECHNIQUE:? 2 views of the right ribs were acquired, along with a single view chest.? ? COMPARISON:? [facility], CR, XR CHEST 2V, 11/21/2021, 12:45.? Located Within [facility], CT, CT LOW DOSE LUNG CA SCREENING, 02/10/2021, 9:40. ? FINDINGS:? ? Surgical changes and devices:? None.? ? Bones and chest wall:? Subtle undulation of the right anterior 7th rib and possibly the lateral 10th rib.? No dislocations.? No suspicious bony lesions.? Mild scoliosis.? Overlying soft tissues appear unremarkable.? ? Lungs and pleura:? No pleural effusions or pneumothorax.? Lungs appear clear.? ? Mediastinum:? Mediastinal contours appear unchanged.? Heart size is normal.? ? IMPRESSION:? Possible nondisplaced right anterior 7th rib fracture. ? Possible nondisplaced right lateral 10th rib fracture. ? There may be additional occult nondisplaced fractures. ? If clinically indicated this could be further evaluated with CT of the chest.? ? Dictated by: Bhavin Teixeira M.D. on 02/09/2022 at 9:14 ? ? Approved by: Bhavin Teixeira M.D. on 02/09/2022 at 9:19? ECG Data Attestation: I personally reviewed and interpreted this ECG as follows: Prior ECG tracings: available for review Interpretation: Sinus rhythm Ventricular rate is 77 Occasional PACs Normal QRS Normal QTC Nonspecific ST T wave changes MDM Narrative Medical decision making narrative: Not sure the exact etiology of the patient's discomfort in her right armpit. There does not appear to be any cellulitis. There is no lymphadenopathy. No other masses. The x-ray although not specifically aimed at this area did not show any signs of pathology. Patient also fell last Wednesday. Most likely was mechanical fall given the description that she gives but were not 100% sure this. Patient is low risk for the [place] syncope Rule. Does have a cont usion on the skin and x-ray shows concern for potential 7th and 10th rib fracture although this is lower than the area where she is having discomfort on palpation. I did discuss this with her. I feel that patient could be safely discharged home without further workup for now. She was given return precautions. She expressed understanding and agreement. Discharge Plan Departure Patient Disposition: Home Clinical Impression: Contusion of rib, Fall Activity Restrictions/Additional Instructions: Likely discussed today there were some findings on the x-rays that could potentially be rib fractures although I feel that this is lower on your ribs than where you are having discomfort. I recommend that you contact your primary doctor for a follow-up like we discussed. Return to the emergency department for any new or worsening symptoms Prescriptions: No Action mupirocin 2 % ointment 1 applic topical BID Qty: 30 0RF aripiprazole [Abilify] 2 MG tablet 2 mg PO QDAY Qty: 90 0RF aspirin 81 MG tablet,chewable 81 mg PO QDAY Qty: 90 0RF nitroglycerin [Nitrostat] 0.4 MG tablet, sublingual 0.4 mg Sublingual SEE INSTRUCTIONS Qty: 100 1RF cholecalciferol (vitamin D3) [Vitamin D3] 2,000 UNIT tablet 2,000 u PO QDAY Qty: 90 0RF metoprolol tartrate [Lopressor] 50 mg tablet 25 mg PO BID Qty: 90 0RF albuterol sulfate [Proventil HFA] 90 mcg/actuation HFA aerosol inhaler 2 puff inhalation Q4H PRN (Reason: shortness of breath or wheezing) Qty: 3 1RF Qvar RediHaler 80 mcg/actuation HFA aerosol breath activated 1 inh INHALATION BID Qty: 31.8 1RF Rx Instructions: NOT A RESCUE INHALER, DISPENSE QTY#3 acyclovir 800 mg tablet 800 mg PO BID 5 Days Qty: 10 3RF Rx Instructions: space evenly during waking hours gabapentin 300 mg capsule 300 mg PO TID 0RF tetanus and diphther. tox (PF) 5-2 Lf unit/0.5 mL syringe 0.5 ml IM ONCE Qty: 0.5 0RF Rx Instructions: Administer as a single dose pravastatin 80 mg tablet 80 mg PO DAILY 0RF (DME) Resmed Aircurve 10 BIPAP Qty: 1 0RF Dose Instruction: As directed Label Comments: Pressure: IPAP 12 EPAP 4 DME: [facility] Rx Instructions: As directed Referrals: Komal Guy ARNP [Primary Care Provider] -
[2022-02-09 10:06] LABS: BUN Creatinine Ratio 24.3 (6-22); Blood Urea Nitrogen 17 mg/dL (7-17); Calcium 9.1 mg/dL (8.4-10.2); Carbon Dioxide 28 mmol/L (22-32); Chloride 104 mmol/L (98-107); Estimated Glomerular Filt Rate > 60.0 mL/min (>60); Glucose 140 mg/dL (80-110); HEMOLYSIS < 15 (0-50); Potassium 3.7 mmol/L (3.4-5.1); Sodium 139 mmol/L (137-145)
[2022-02-09 10:19] VITALS: BP 150/94; PULSE 75; RESP 22; O2SAT 95
== END 2022-02-09 10:34 | disposition home or self-care (01) ==
PROVIDERS: Emergency Provider Emergency Medicine; Family Provider Nurse Practitioner; PCP Nurse Practitioner
DX: S20.211A Contusion of right front wall of thorax, initial encounter (principal); M79.621 Pain in right upper arm; I49.1 Atrial premature depolarization; W19.XXXA Unspecified fall, initial encounter
CPT/HCPCS: 36415; 71101; 80048; 85025; 93005; 99283

== ENCOUNTER → 2022-02-23 11:17 | Outpatient (CLI) | payer MEDICARE, OTHER, SELFPAY | PROVIDERS: Family Provider Nurse Practitioner; PCP Nurse Practitioner; Referring Provider Nurse Practitioner Family; Visit Provider Nurse Practitioner Family | DX: Z78.0 Asymptomatic menopausal state (principal); Z13.820 Encounter for screening for osteoporosis; M85.89 Other specified disorders of bone density and structure, multiple sites | CPT/HCPCS: 77080 ==

== ENCOUNTER → 2022-03-04 08:19 | Outpatient (CLI) | payer MEDICARE, OTHER, SELFPAY ==
[2022-03-04 09:07] LABS: COVID19 -Nasal RAPID Negative (Negative)
== END ==
PROVIDERS: Family Provider Nurse Practitioner; PCP Nurse Practitioner; Referring Provider Internal Medicine; Visit Provider Internal Medicine
DX: Z20.822 Contact with and (suspected) exposure to COVID-19 (principal)
CPT/HCPCS: 87635

== ENCOUNTER → 2022-03-04 14:55 | Outpatient (CLI) | payer MEDICARE, OTHER, SELFPAY ==
--- NOTE | 2022-03-04 15:50 | PM.TREADMILL ---
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
--- NOTE | 2022-03-06 11:04 | DI.NM.S_ITS ---
DATE OF SERVICE: 03/04/2022 PROCEDURE: Exercise stress test. INDICATION: Known coronary artery disease, hypertension AND hyperlipidemia. CARDIAC STRESS: The patient underwent exercise stress test under the supervision of an attending staff using Jamey protocol. The patient walked on Jamey protocol for 6 minutes and 41 seconds, achieved maximum heart rate of 136, which was 91 percent of target heart rate. Normal hemodynamic response. Baseline blood pressure of 136/64. Maximum blood pressure 184/56. The patient achieved 7 METs of workload. ELIZABETH -17 percent. Baseline rhythm was sinus. During stress, some nonspecific ST changes seen. No obvious inducible ischemic changes seen. Rare PVCs. No chest discomfort. Had some shortness of breath. CONCLUSION: Exercise stress test is negative for inducible ischemia. Normal hemodynamic response. ELIZABETH -17 percent, suggestive of good exercise tolerance. No anginal symptoms. No significant arrhythmias seen. Overall low-risk exercise stress test. Eli Brothers - VELASQUEZ/kavya/petra doc#: [id number]/job#: [id number] dd: 03/05/2022 17:23:00 dt: 03/05/2022 20:47:00 DICTATING /COPIES TO: Woody Naylor MD COPIES MNE: KARYN;
== END ==
PROVIDERS: Family Provider Nurse Practitioner; PCP Nurse Practitioner; Referring Provider Internal Medicine; Visit Provider Internal Medicine
DX: R07.9 Chest pain, unspecified (principal); I25.10 Atherosclerotic heart disease of native coronary artery without angina pectoris; I10 Essential (primary) hypertension; E78.5 Hyperlipidemia, unspecified
CPT/HCPCS: 93017

== ENCOUNTER → 2022-07-08 07:01 | Outpatient (CLI) | payer MEDICARE, OTHER, SELFPAY ==
[2022-07-08 08:34] LABS: Add Manual Diff / Slide Review NO; Basophils Absolute Auto 100 /uL (0-100); Basophils Percent Auto 1.9 % (0-2); Eosinophils Absolute Auto 100 /uL (0-450); Eosinophils Percent Auto 2.2 % (2-4); Hematocrit 38.2 % (36-46); Lymphocytes Absolute Auto 1300 /uL (1100-4500); Mean Corpuscular HGB Conc 34.1 % (30-36); Mean Corpuscular Hemoglobin 29.7 PG (26-34); Mean Corpuscular Volume 87.1 fL (80-100); Monocytes Absolute Auto 400 /uL (0-900); Monocytes Percent Auto 8.6 % (3-14); Neutrophils Absolute Auto 2500 /uL (1500-7000); Neutrophils Percent Auto 57.3 % (50-75); Platelet Count 218 X10^3/uL (150-400); Red Blood Cell Count 4.39 X10^6/uL (4.0-5.2); White Blood Cell Count 4.3 X10^3/uL (4.5-11.0)
[2022-07-08 08:40] LABS: Hemoglobin A1C% w Est Avg Glu 5.7 % (4.0-6.0)
[2022-07-08 08:44] LABS: Alanine Aminotransferase 29 IU/L (<35); Albumin 4.2 g/dL (3.5-5.0); Albumin Globulin Ratio 1.8 (1.0-2.8); Alkaline Phosphatase 44 U/L (38-126); Aspartate Aminotransferase 26 IU/L (14-36); BUN Creatinine Ratio 25.8 (6-22); Bilirubin Total 0.3 mg/dL (0.2-1.3); Blood Urea Nitrogen 16 mg/dL (7-17); Calcium 8.7 mg/dL (8.4-10.2); Carbon Dioxide 29 mmol/L (22-32); Chloride 103 mmol/L (98-107); Estimated Glomerular Filt Rate > 60 mL/min (>60); Globulin 2.4 g/dL (1.7-4.1); Glucose 99 mg/dL (80-110); HEMOLYSIS < 15 (0-50); Potassium 4.7 mmol/L (3.4-5.1); Sodium 138 mmol/L (137-145); Total Protein 6.6 g/dL (6.3-8.2)
[2022-07-08 09:04] LABS: Free T3, Triiodothyronine Free 3.93 pg/mL (2.77-5.27)
[2022-07-08 09:18] LABS: Thyroid Stimulating Hormone 3.73 uIU/mL (0.47-4.68)
[2022-07-08 09:31] LABS: Creatinine Urine Random 85.8 mg/dL
[2022-07-08 09:36] LABS: Microalbumin Urine Random < 0.6 mg/dL (0-1.6)
[2022-07-13 15:01] LABS: Fecal Immunochemical Test Negative (Negative)
== END ==
PROVIDERS: Family Provider Nurse Practitioner; PCP Nurse Practitioner; Referring Provider Nurse Practitioner; Visit Provider Nurse Practitioner
DX: I10 Essential (primary) hypertension (principal); R73.9 Hyperglycemia, unspecified; Z12.11 Encounter for screening for malignant neoplasm of colon; R53.83 Other fatigue
CPT/HCPCS: 36415; 80053; 82043; 82274; 82570; 83036; 84439; 84443; 84481; 85025

== ENCOUNTER → 2022-10-09 08:14 | Outpatient (CLI) | payer MEDICARE, OTHER, SELFPAY ==
[2022-10-09 09:43] LABS: Add Manual Diff / Slide Review NO; Basophils Absolute Auto 100 /uL (0-100); Basophils Percent Auto 1.5 % (0-2); Eosinophils Absolute Auto 100 /uL (0-450); Eosinophils Percent Auto 2.8 % (2-4); Hematocrit 37.4 % (36-46); Hemoglobin 12.6 g/dL (12.0-16.0); Lymphocytes Absolute Auto 1800 /uL (1100-4500); Lymphocytes Percent Auto 34.6 % (25-40); Mean Corpuscular HGB Conc 33.7 % (30-36); Mean Corpuscular Hemoglobin 29.4 PG (26-34); Monocytes Absolute Auto 400 /uL (0-900); Monocytes Percent Auto 8.1 % (3-14); Neutrophils Absolute Auto 2700 /uL (1500-7000); Platelet Count 225 X10^3/uL (150-400); Red Blood Cell Count 4.29 X10^6/uL (4.0-5.2); Red Cell Distribution Width 12.6 % (11.6-14.8); White Blood Cell Count 5.1 X10^3/uL (4.5-11.0)
[2022-10-09 09:47] LABS: Appearance Urine UA CLEAR; Bilirubin Urine UA NEGATIVE (NEGATIVE); Color Urine UA YELLOW; Glucose Urine UA NEGATIVE (Negative); Ketones Urine UA NEGATIVE (NEGATIVE); Leukocyte Esterase Urine UA NEGATIVE (NEGATIVE); Nitrite Urine UA NEGATIVE (Negative); Occult Blood Urine UA NEGATIVE (Negative); Protein Urine UA NEGATIVE (Negative); Urobilinogen Urine UA 0.2 E.U./dL (0.2)
[2022-10-09 09:54] LABS: Hemoglobin A1C% w Est Avg Glu 5.5 % (4.0-6.0)
[2022-10-09 10:03] LABS: Bacteria Urine Occasional (0-1); Culture Indicated Urine Cult Not Indicated; RBC Urine 1-5/HPF (0-5/HPF); Squamous Epithelial Cell Urine 0-1 /HPF (0-5/HPF); WBC Urine None Seen (0-5/HPF)
[2022-10-09 10:13] LABS: BUN Creatinine Ratio 24.6 (6-22); Blood Urea Nitrogen 16 mg/dL (7-17); Calcium 9.3 mg/dL (8.4-10.2); Carbon Dioxide 29 mmol/L (22-32); Chloride 99 mmol/L (98-107); Estimated Glomerular Filt Rate > 60 mL/min (>60); Glucose 105 mg/dL (80-110); HEMOLYSIS < 15 (0-50); Potassium 4.4 mmol/L (3.4-5.1); Sodium 136 mmol/L (137-145)
== END ==
PROVIDERS: Family Provider Nurse Practitioner; PCP Nurse Practitioner; Referring Provider Orthopaedic Surgery; Visit Provider Orthopaedic Surgery
DX: Z01.818 Encounter for other preprocedural examination (principal); R73.9 Hyperglycemia, unspecified; Z01.812 Encounter for preprocedural laboratory examination; N39.0 Urinary tract infection, site not specified
CPT/HCPCS: 36415; 80048; 81001; 83036; 85025; 93005

== ENCOUNTER → 2022-10-16 12:06 | Outpatient (CLI) | payer MEDICARE, OTHER, SELFPAY ==
--- NOTE | 2022-10-16 12:08 | DI.MRI.S_ITS ---
PROCEDURE: MR KNEE RT WO CON INDICATIONS: Unilateral primary osteoarthritis, right knee TECHNIQUE: [employer]ia[employer]Nephew [employer] protocol was performed. Noncontrast sagittal PD fast spin echo and T2 fast spin echo with fat saturation, sagittal 3-D FLASH with fat saturation; coronal T1 spin echo and PD fast spin echo with fat saturation, and axial PD fast spin echo with fat saturation through the knee. COMPARISON: [facility], MR, MR KNEE RT WO CON, 05/03/2018, 13:41. [facility], CR, XR KNEE 4+ VIEWS RIGHT, 07/08/2022, 15:05. FINDINGS: Image quality: Excellent. Anterior Cruciate Ligament: Intact. Posterior Cruciate Ligament: Intact. Medial Collateral Ligament: Intact. Lateral Collateral Ligament: Intact. Medial Meniscus: Complex tearing of the medial meniscus is again seen. There is horizontal oblique tearing of the posterior horn and body within inferiorly displaced meniscal flap extending into the medial tibial gutter. A shallow radial component is seen at the meniscal body. Lateral Meniscus: Intact. Medial and Lateral Tendons: The semimembranosus tendon insertions and meniscocapsular junction appear intact. Visualized portions of the pes anserinus tendons appear normal. No abnormal bursal fluid. The long and short heads of the biceps femoris tendon appear intact. The popliteus tendon appears intact. No signs of posterolateral corner injury. Iliotibial band appears normal. Anterior Structures: The quadriceps and patellar tendons appear intact. No patellar subluxation. No femoral trochlear dysplasia or ventral trochlear prominence. No edema in the infrapatellar fat pad. Bones: No acute trabecular bone injury or fracture. Medial Femorotibial Cartilage: Full-thickness cartilage loss is seen throughout the central weight-bearing portion of medial femoral condyle with subchondral cystic changes and mild subchondral osteophyte formation. Marginal osteophytes are also present. There is partial-thickness cartilage irregularity at the medial tibial plateau. Lateral Femorotibial Cartilage: Mild surface irregularity of the articular cartilage in the posterior weight-bearing portion of the lateral tibial plateau. Patellofemoral Cartilage: Mild partial-thickness cartilage loss at the median ridge/medial facet of the patella. Soft Tissues: Small joint effusion. Moderate medial popliteal cyst. The musculature surrounding the knee is normal in bulk. IMPRESSION: 1. Complex tearing of the medial meniscus appears mildly worse when compared to the MRI from 05/03/2018. A horizontal oblique component is seen at the posterior horn and body with a inferiorly displaced meniscal flap extending into the medial tibial gutter as well as a new shallow radial component at the anterior portion of the meniscal body. 2. Full-thickness cartilage loss in the medial femorotibial compartment with subchondral cystic changes as well as subchondral and marginal osteophyte formation. Mild grade 2 chondromalacia in the lateral and anterior compartments. 3. Small joint effusion. Moderate medial popliteal cyst. Approved by: Nabil Vanessa M.D. on 10/16/2022 at 15:58
== END ==
PROVIDERS: Family Provider Nurse Practitioner; PCP Nurse Practitioner; Referring Provider Orthopaedic Surgery; Visit Provider Orthopaedic Surgery
DX: S83.231A Complex tear of medial meniscus, current injury, right knee, initial encounter (principal); M17.11 Unilateral primary osteoarthritis, right knee; M94.261 Chondromalacia, right knee; M25.461 Effusion, right knee; M71.21 Synovial cyst of popliteal space [Baker], right knee
CPT/HCPCS: 73721

== ENCOUNTER → 2022-11-11 08:21 | Outpatient (CLI) | payer MEDICARE, OTHER, SELFPAY ==
--- NOTE | 2022-11-11 08:23 | DI.MG.S_ITS ---
BILATERAL DIGITAL SCREENING MAMMOGRAM 3D/2D WITH CAD: 11/11/2022 CLINICAL: Routine screening. Comparison is made to exams dated: 10/30/2021 mammogram - [facility], 01/08/2021 mammogram, 12/28/2019 mammogram, and 12/12/2018 mammogram - [facility]. Both breasts are heterogeneously dense, which may obscure small masses (category c / 51-75% glandular tissue). Current study was also evaluated with a Computer Aided Detection (CAD) system. No significant masses, calcifications, or other findings are seen in either breast. There has been no significant interval change. IMPRESSION: NEGATIVE There is no mammographic evidence of malignancy. A 1 year screening mammogram is recommended. Based on the Tyrer Cuzick model (a risk assessment model) the patient's lifetime risk is 8.2% and her 10 year risk is 6.2%. According to the ACR, ACS, and NCCN guidelines, an annual breast MRI exam along with mammogram is recommended if the patient's lifetime risk is 20% or greater. This exam was interpreted at Station ID: [id number]. NOTE: For mammograms, a report in lay terms will be sent to the patient. Approximately 15% of breast malignancies will not be visualized mammographically. In the management of a palpable breast mass, a negative mammogram must not discourage biopsy of a clinically suspicious lesion. Electronically Signed By: Wicho Schwartz M.D., jr/fermin:11/11/2022 12:54:27 letter sent: Normal Exam ACR BI-RADS Category 1: Negative 3341F
== END ==
PROVIDERS: Family Provider Nurse Practitioner; PCP Nurse Practitioner; Referring Provider Nurse Practitioner; Visit Provider Nurse Practitioner
DX: Z12.31 Encounter for screening mammogram for malignant neoplasm of breast (principal)
CPT/HCPCS: 77063; 77067

== ENCOUNTER → 2023-05-03 07:37 | Outpatient (CLI) | payer MEDICARE, OTHER, SELFPAY ==
[2023-05-03 10:28] LABS: Add Manual Diff / Slide Review NO; Basophils Absolute Auto 100 /uL (0-100); Basophils Percent Auto 1.7 % (0-2); Eosinophils Absolute Auto 200 /uL (0-450); Eosinophils Percent Auto 3.3 % (2-4); Hematocrit 38.6 % (36-46); Lymphocytes Absolute Auto 1600 /uL (1100-4500); Lymphocytes Percent Auto 29.3 % (25-40); Mean Corpuscular HGB Conc 33.6 % (30-36); Mean Corpuscular Hemoglobin 29.3 PG (26-34); Monocytes Absolute Auto 400 /uL (0-900); Monocytes Percent Auto 7.5 % (3-14); Neutrophils Absolute Auto 3100 /uL (1500-7000); Neutrophils Percent Auto 58.2 % (50-75); Platelet Count 232 X10^3/uL (150-400); Red Blood Cell Count 4.44 X10^6/uL (4.0-5.2); Red Cell Distribution Width 13.1 % (11.6-14.8); White Blood Cell Count 5.4 X10^3/uL (4.5-11.0)
[2023-05-03 10:53] LABS: Alanine Aminotransferase 28 IU/L (<35); Albumin 4.2 g/dL (3.5-5.0); Albumin Globulin Ratio 1.4 (1.0-2.8); Alkaline Phosphatase 54 U/L (38-126); Aspartate Aminotransferase 26 IU/L (14-36); BUN Creatinine Ratio 20.3 (6-22); Bilirubin Total 0.4 mg/dL (0.2-1.3); Blood Urea Nitrogen 13 mg/dL (7-17); Calcium 8.7 mg/dL (8.4-10.2); Carbon Dioxide 31 mmol/L (22-32); Chloride 102 mmol/L (98-107); Cholesterol 202 mg/dL (140-199); Estimated Glomerular Filt Rate > 60 mL/min (>60); Globulin 3.1 g/dL (1.7-4.1); Glucose 105 mg/dL (80-110); HDL Cholesterol 69 mg/dL (40-60); HEMOLYSIS < 15 (0-50); LDL Cholesterol Calculated 102 mg/dL (<100); Magnesium 2.1 mg/dL (1.6-2.3); Potassium 4.3 mmol/L (3.4-5.1); Sodium 137 mmol/L (137-145); Total Protein 7.3 g/dL (6.3-8.2); Triglycerides 155 mg/dL (35-150)
[2023-05-03 11:13] LABS: TSH w/ Reflex to FT4 2.39 uIU/mL (0.47-4.68)
[2023-05-04 05:12] LABS: Labcorp Hemoglobin (Hb) A1c 5.9 % (4.8-5.6)
== END ==
PROVIDERS: Family Provider Nurse Practitioner; PCP Nurse Practitioner; Referring Provider Internal Medicine Cardiovascular Disease; Visit Provider Internal Medicine Cardiovascular Disease
DX: I25.10 Atherosclerotic heart disease of native coronary artery without angina pectoris (principal); I10 Essential (primary) hypertension; I21.A9 Other myocardial infarction type; E78.5 Hyperlipidemia, unspecified; Z13.1 Encounter for screening for diabetes mellitus; R53.83 Other fatigue
CPT/HCPCS: 36415; 80053; 80061; 83036; 83735; 84443; 85025

== ENCOUNTER → 2023-06-09 07:51 | Outpatient (CLI) | payer MEDICARE, OTHER, SELFPAY ==
--- NOTE | 2023-06-09 07:53 | DI.NM.S_ITS ---
PROCEDURE: NM SONY PERF SPECT REST & STR Rest and exercise myocardial perfusion SPECT with gated imaging and ejection fraction RADIOPHARMACEUTICAL: 12.5 mCi Tc-99m sestamibi IV at rest and 25.9 mCi Tc-99m sestamibi IV at peak exercise. A one day-protocol was performed. INDICATIONS: Atherosclerotic heart disease of [place] coronary TECHNIQUE: Radiopharmaceutical was injected at peak stress test, and also at rest. SPECT images were obtained. SPECT myocardial perfusion images were displayed in short axis, horizontal long axis, and vertical long axis views. Gated images were reviewed using [employer] software. COMPARISON: None. CARDIAC STRESS: A standard Jamey treadmill exercise tolerance test was performed by the patient under the supervision of an attending staff. The patient exercised for 6 minutes and 46 seconds; functional aerobic impairment (ELIZABETH) is -20%. Hemodynamic data: There is normal heart rate response to exercise stress. Hypertensive response to exercise (resting BP 130/64mmHg, max BP 220/60mmHg). Patient achieved 98% of maximum predicted heart rate at peak exercise. Symptoms: Patient denied chest pain during exercise. EKG: No diagnostic EKG changes of ischemia; no ectopy. FINDINGS: Raw data: There is good myocardial labeling by radiotracer. No significant motion artifacts. Left ventricle function: Gated images demonstrate normal left ventricle wall thickening. No segmental wall motion abnormality. No transient ischemic dilation; TID is 0.89 (normal less than 1.3). The left ventricle resting end-diastolic volume is 90 mL. Left ventricle stress ejection fraction is 78%; normal values are above 45%. Myocardial perfusion: There is a mildly intense fixed distal anterior wall defect that improves with prone imaging, suggesting breast attenuation artifact but old small non-transmural infarction can't be definitively excluded. No ischemia. IMPRESSION: Low risk, probably normal treadmill nuclear stress test 1) There is a mildly intense fixed distal anterior wall defect that improves with prone imaging, suggesting breast attenuation artifact but old small non-transmural infarction can't be definitively excluded. No ischemia. 2) Normal left ventricular size, wall motion, and systolic function (EF 78% post stress). 3) No diagnostic ST changes during exercise or recovery. 4) No angina during the study. 5) Good exercise tolerance (7.0METs, ELIZABETH -20%). Target heart rate achieved. 6) Hypertensive response to exercise (resting BP 130/64mmHg, max BP 220/60mmHg). 7) No prior nuclear stress test available for comparison. Dictated by: Sarai Suazo MD on 06/10/2023 at 13:50 Approved by: Sarai Suazo MD on 06/10/2023 at 13:55
--- NOTE | 2023-06-09 07:53 | DI.ECHO.S_ITS ---
[facility] +---------+ : : [address] : [address] : : : : [id number] : : : : Phone: [phone]+ Echocardiogram Report + + :Name: WERNER FUENTES Study Date: 06/09/2023 Height: 66 in : :[facility] ReadingLocation: Weight: 160 lb : : Gender: Female BSA: 1.8 m2 : :: 1950 Age: 72 yrs BP: 162/81 mmHg: :Reason For Study: ATHEROSCLEOTIC HEART DISEASE : :Ordering Physician: CLARISSE, : :DYANA Tsai Performed By: Amanda Mariee : :Referring: DYANA ELIAS : + + Interpretation Summary The ejection fraction is estimated to be 55-60%. Grade II diastolic dysfunction. The left atrium is moderately dilated. The right ventricle is normal in size and function. There is mild mitral regurgitation. Pulmonary artery pressures cannot be estimated because of the lack of a measurable TR jet velocity. Procedure: A two-dimensional transthoracic echocardiogram with color flow and Doppler was performed. The study quality was technically adequate. There is no prior echocardiogram noted for this patient. The patient was in sinus rhythm with heart rates between 62-68 bpm during the exam. Left Ventricle: The left ventricle is normal in size and wall thickness. The ejection fraction is estimated to be 55-60%. Diastolic parameters suggest a pseudonormalization pattern, consistent with probable elevated filling pressures. Right Ventricle: The right ventricle is normal in size and function. Atria: The left atrium is moderately dilated. Right atrial size is normal. There is no Doppler evidence for an interatrial shunt. Mitral Valve: The mitral valve is normal. There is mild mitral regurgitation. Aortic Valve: The aortic valve is trileaflet. The aortic valve opens well. There is no aortic valve stenosis. No aortic regurgitation is present. Tricuspid Valve: The tricuspid valve is normal in structure and function. There is trace tricuspid regurgitation. Pulmonary artery pressures cannot be estimated because of the lack of a measurable TR jet velocity. Pulmonic Valve: The pulmonic valve is not well visualized. There is no pulmonic valvular regurgitation. Great Vessels: The aortic root is normal size. The dimensions of the ascending aorta are normal. The IVC is of normal diameter and collapses greater than 50% with a sniff. This suggests a low right atrial pressure of 3 mm Hg. Pericardium/ Pleura There is no pericardial effusion. There is no pleural effusion. MMode/2D Measurements & Calculations LVIDd: 5.3 cm LVOT diam: 2.0 cm LVIDs: 3.6 cm Ao root diam: 2.6 cm FS: 33.2 % asc Aorta Diam: 3.0 cm IVSd: 0.78 cm LVPWd: 0.76 cm LV pierce. diameter/BSA (cm/m^2): 2.9 LV sys. diameter/BSA (cm/m^2): 2.0 LA A2 area: 19.4 cm2 RA long axis: 4.8 cm LA A4 area: 18.4 cm2 RA area: 14.0 cm2 LA length (vol): 5.3 cm RA vol: 35.0 ml LA vol: 57.1 ml RA : 19.3 ml/m2 LA vol index: 31.4 ml/m2 IVC diam: 1.1 cm RVD1 (basal): 3.6 cm TAPSE: 2.2 cm Doppler Measurements & Calculations Ao V2 max: 148.2 cm/sec LVOT Max Lucas: 120.6 cm/sec Ao V2 mean: 108.8 cm/sec LV V1 max P.8 mmHg Ao max P.8 mmHg LV V1 VTI: 26.1 cm Ao mean P.1 mmHg VIKRAM(I,D): 2.5 cm2 Ao V2 VTI: 33.5 cm VIKRAM(V,D): 2.6 cm2 sev ratio: 0.78 VIKRAM indexed to BSA (cm^2/m^2): 1.4 MV E max lucas: 64.4 cm/sec PA V2 max: 105.2 cm/sec MV A max lucas: 76.0 cm/sec PA V2 mean: 83.2 cm/sec MV E/A: 0.85 PA mean P.9 mmHg Med Peak E' Lucas: 3.6 cm/sec PA pr(Accel): 22.5 mmHg E/E' med: 18.0 Lat Peak E' Lucas: 4.8 cm/sec E/E' lat: 13.5 E/e' average: 15.7 MV dec time: 0.23 sec SV(OT): 82.8 ml Reading Physician:07:46 PM
== END ==
PROVIDERS: Family Provider Nurse Practitioner; PCP Nurse Practitioner; Referring Provider Internal Medicine Cardiovascular Disease; Visit Provider Internal Medicine Cardiovascular Disease
DX: I34.0 Nonrheumatic mitral (valve) insufficiency (principal); I25.10 Atherosclerotic heart disease of native coronary artery without angina pectoris
CPT/HCPCS: 78452; 93017; 93306; A9502

== ENCOUNTER → 2023-06-11 09:01 | Outpatient (CLI) | payer MEDICARE, OTHER, SELFPAY ==
--- NOTE | 2023-06-11 09:03 | DI.RAD.S_ITS ---
PROCEDURE: XR WRIST LT MIN 3V INDICATIONS: Pain at base of left 1st MCP after fall TECHNIQUE: 4 views of the wrist were acquired. COMPARISON: None. FINDINGS: Bones: No fractures or dislocations. No suspicious bony lesions. Osteoarthritic changes at the 1st carpometacarpal joint. Scaphoid view: No scaphoid fracture is identified. Soft tissues: No suspicious soft tissue calcifications. IMPRESSION: No acute fracture or dislocation. If pain persists with conservative management, consider repeat x-ray in 10-14 days or cross-sectional imaging. Dictated by: Steven Chacon M.D. on 06/11/2023 at 9:12 Approved by: Steven Chacon M.D. on 06/11/2023 at 9:14
== END ==
PROVIDERS: Family Provider Nurse Practitioner; PCP Nurse Practitioner; Referring Provider Physician Assistant; Visit Provider Physician Assistant
DX: M79.645 Pain in left finger(s) (principal)
CPT/HCPCS: 73110

== ENCOUNTER → 2023-10-06 07:37 | Outpatient (CLI) | payer MEDICARE, OTHER, SELFPAY ==
[2023-10-06 09:42] LABS: Alanine Aminotransferase 40 IU/L (<35); Albumin 4.4 g/dL (3.5-5.0); Albumin Globulin Ratio 1.6 (1.0-2.8); Alkaline Phosphatase 47 U/L (38-126); Aspartate Aminotransferase 36 IU/L (14-36); Bilirubin Total 0.6 mg/dL (0.2-1.3); Blood Urea Nitrogen 14 mg/dL (7-17); Calcium 9.6 mg/dL (8.4-10.2); Carbon Dioxide 30 mmol/L (22-32); Chloride 102 mmol/L (98-107); Cholesterol 169 mg/dL (140-199); Estimated Glomerular Filt Rate > 60 mL/min (>60); Globulin 2.7 g/dL (1.7-4.1); Glucose 101 mg/dL (80-110); HDL Cholesterol 89 mg/dL (40-60); HEMOLYSIS < 15 (0-50); LDL Cholesterol Calculated 61 mg/dL (<100); Potassium 4.4 mmol/L (3.4-5.1); Sodium 138 mmol/L (137-145); Total Protein 7.1 g/dL (6.3-8.2); Triglycerides 94 mg/dL (35-150)
[2023-10-06 16:00] LABS: Creatinine Urine Random 67.1 mg/dL
[2023-10-06 16:04] LABS: Microalbumi Creatinin Ratio Ur 11.9 ug/mg CR (<30); Microalbumin Urine Random 0.8 mg/dL (0-1.6)
== END ==
PROVIDERS: Family Provider Nurse Practitioner; PCP Nurse Practitioner; Referring Provider Nurse Practitioner; Visit Provider Nurse Practitioner
DX: R73.03 Prediabetes (principal); E78.2 Mixed hyperlipidemia; I10 Essential (primary) hypertension; I25.2 Old myocardial infarction; Z79.899 Other long term (current) drug therapy
CPT/HCPCS: 36415; 80053; 80061; 82043; 82570; 83036

== ENCOUNTER → 2023-12-06 07:50 | Outpatient (CLI) | payer MEDICARE, OTHER, SELFPAY ==
--- NOTE | 2023-12-06 07:53 | DI.MG.S_ITS ---
BILATERAL DIGITAL SCREENING MAMMOGRAM 3D/2D WITH CAD: 12/06/2023 CLINICAL: Routine screening. Comparison is made to exams dated: 11/11/2022 mammogram - [facility], 10/30/2021 mammogram - [facility], 01/08/2021 mammogram, and 12/28/2019 mammogram - [facility]. Both breasts are heterogeneously dense, which may obscure small masses (category c / 51-75% glandular tissue). Current study was also evaluated with a Computer Aided Detection (CAD) system. No significant masses, calcifications, or other findings are seen in either breast. There has been no significant interval change. IMPRESSION: NEGATIVE There is no mammographic evidence of malignancy. A 1 year screening mammogram is recommended. Based on the Tyrer Cuzick model (a risk assessment model) the patient's lifetime risk is 7.8% and her 10 year risk is 6.4%. According to the ACR, ACS, and NCCN guidelines, an annual breast MRI exam along with mammogram is recommended if the patient's lifetime risk is 20% or greater. This exam was interpreted at Station ID: [id number]. NOTE: For mammograms, a report in lay terms will be sent to the patient. Approximately 15% of breast malignancies will not be visualized mammographically. In the management of a palpable breast mass, a negative mammogram must not discourage biopsy of a clinically suspicious lesion. Electronically Signed By: Beto zepeda/fermin:12/06/2023 18:40:17 letter sent: Normal Exam ACR BI-RADS Category 1: Negative [id number]
[2023-12-06 08:58] LABS: Alanine Aminotransferase 46 IU/L (<35); Albumin 4.3 g/dL (3.5-5.0); Albumin Globulin Ratio 1.6 (1.0-2.8); Alkaline Phosphatase 43 U/L (38-126); Aspartate Aminotransferase 39 IU/L (14-36); Bilirubin Total 0.6 mg/dL (0.2-1.3); Bilirubin Unconjugated 0.3 mg/dL (0.0-1.1); Globulin 2.7 g/dL (1.7-4.1); HEMOLYSIS < 15 (0-50)
== END ==
PROVIDERS: Family Provider Nurse Practitioner; PCP Nurse Practitioner; Referring Provider Nurse Practitioner; Visit Provider Nurse Practitioner
DX: Z12.31 Encounter for screening mammogram for malignant neoplasm of breast (principal); R92.333 Mammographic heterogeneous density, bilateral breasts
CPT/HCPCS: 36415; 77063; 77067; 80076

== ENCOUNTER → 2023-12-21 10:47 | Outpatient (CLI) | payer MEDICARE, OTHER, SELFPAY ==
--- NOTE | 2023-12-21 10:48 | DI.US.S_ITS ---
PROCEDURE: US ABDOMEN LIMITED INDICATIONS: R/O hepatic stenosis TECHNIQUE: Real-time focused scanning was performed of the abdomen, with image documentation. COMPARISON: None. FINDINGS: Liver has a normal echo pattern without focal masses. Unremarkable gallbladder without stones. No dilated ducts. Common bile duct measures 3 mm. Visualized portions the pancreas are unremarkable. IMPRESSION: Unremarkable right upper quadrant ultrasound without gallbladder pathology or evidence of diffuse hepatic steatosis. Dictated by: Chet Keller M.D. on 12/21/2023 at 18:57 Approved by: Chet Keller M.D. on 12/21/2023 at 18:58
== END ==
LOC: US 10:48
PROVIDERS: Family Provider Nurse Practitioner; PCP Nurse Practitioner; Referring Provider Nurse Practitioner; Visit Provider Nurse Practitioner
DX: R74.8 Abnormal levels of other serum enzymes (principal)
CPT/HCPCS: 76705

== ENCOUNTER → 2024-01-04 07:45 | Outpatient (CLI) | payer MEDICARE, OTHER, SELFPAY ==
[2024-01-04 08:52] LABS: Hemoglobin A1C% w Est Avg Glu 6.2 % (4.0-6.0)
[2024-01-04 08:55] LABS: Alanine Aminotransferase 41 IU/L (<35); Albumin 4.2 g/dL (3.5-5.0); Albumin Globulin Ratio 1.6 (1.0-2.8); Alkaline Phosphatase 46 U/L (38-126); Aspartate Aminotransferase 37 IU/L (14-36); BUN Creatinine Ratio 20.3 (6-22); Bilirubin Total 0.5 mg/dL (0.2-1.3); Blood Urea Nitrogen 12 mg/dL (7-17); Calcium 9.1 mg/dL (8.4-10.2); Carbon Dioxide 27 mmol/L (22-32); Chloride 100 mmol/L (98-107); Cholesterol 178 mg/dL (140-199); Estimated Glomerular Filt Rate > 60 mL/min (>60); Globulin 2.7 g/dL (1.7-4.1); Glucose 98 mg/dL (80-110); HDL Cholesterol 88 mg/dL (40-60); HEMOLYSIS < 15 (0-50); LDL Cholesterol Calculated 66 mg/dL (<100); Potassium 4.2 mmol/L (3.4-5.1); Sodium 136 mmol/L (137-145); Total Protein 6.9 g/dL (6.3-8.2); Triglycerides 121 mg/dL (35-150)
== END ==
PROVIDERS: Family Provider Nurse Practitioner; PCP Nurse Practitioner; Referring Provider Nurse Practitioner; Visit Provider Nurse Practitioner
DX: R73.03 Prediabetes (principal); Z79.899 Other long term (current) drug therapy; R00.2 Palpitations; I10 Essential (primary) hypertension; E78.2 Mixed hyperlipidemia
CPT/HCPCS: 36415; 80053; 80061; 83036

== ENCOUNTER → 2024-04-12 16:39 | Outpatient (CLI) | payer MEDICARE, OTHER, SELFPAY ==
--- NOTE | 2024-04-12 16:40 | DI.RAD.S_ITS ---
PROCEDURE: XR CHEST 2V INDICATIONS: Cough TECHNIQUE: 2 views of the chest were acquired. COMPARISON: [facility], CR, XR CHEST 2V, 11/21/2021, 12:45. FINDINGS: Surgical changes and devices: None. Lungs and pleura: Lungs are clear. No pleural effusions or pneumothorax. Mediastinum: Mediastinal contours are normal. Heart size is normal. Bones and chest wall: No suspicious bony abnormalities. Soft tissues appear unremarkable. IMPRESSION: No acute pulmonary process. Dictated by: Chelsy Emerson M.D. on 04/13/2024 at 20:03 Approved by: Chelsy Emerson M.D. on 04/13/2024 at 20:04
== END ==
PROVIDERS: Family Provider Nurse Practitioner; PCP Nurse Practitioner; Referring Provider Nurse Practitioner Family; Visit Provider Nurse Practitioner Family
DX: R05.9 Cough, unspecified (principal)
CPT/HCPCS: 71046

== ENCOUNTER → 2024-05-24 10:56 | Outpatient (CLI) | payer MEDICARE, OTHER, SELFPAY ==
--- NOTE | 2024-05-24 10:58 | DI.RAD.S_ITS ---
PROCEDURE: XR HAND RT MIN 3V INDICATIONS: shut car door on distal index and thumb TECHNIQUE: 3 views of the hand(s) acquired. COMPARISON: [facility], [facility], HAND 3V LEFT, 04/10/2011, 14:25. FINDINGS: Bones: Tiny ossific density in the ulnar aspect of the 2nd DIP joint may reflect an age indeterminate avulsion fracture versus degenerative sequela. No acute osseous abnormality of the 1st digit. Hyperflexion of the 5th DIP joint which may be secondary to patient positioning. No suspicious bony lesions. Soft tissues: No suspicious soft tissue calcifications. No radiopaque foreign body. IMPRESSION: 1. Tiny ossific density in the ulnar aspect of the 2nd DIP joint may reflect an age-indeterminate avulsion fracture versus degenerative sequela. Correlate for point tenderness. 2. No radiographic evidence of acute osseous abnormality of the 1st digit. If clinical symptoms persist, consider repeat radiograph in 10-14 days versus cross-sectional imaging. Dictated by: Lovely Estrada M.D. on 05/24/2024 at 14:44 Approved by: Lovely Estrada M.D. on 05/24/2024 at 14:48
== END ==
PROVIDERS: Family Provider Nurse Practitioner; PCP Nurse Practitioner; Referring Provider Physician Assistant; Visit Provider Physician Assistant
DX: S69.91XA Unspecified injury of right wrist, hand and finger(s), initial encounter (principal); W23.2XXA Caught, crushed, jammed or pinched between a moving and stationary object, initial encounter
CPT/HCPCS: 73130

== ENCOUNTER 2024-06-10 13:55 | Emergency (ER) | payer MEDICARE, OTHER, SELFPAY ==
[2024-06-10 14:00] VITALS: BP 199/90; PULSE 106; O2SAT 96
[2024-06-10 14:02] VITALS: BP 199/90; PULSE 109; RESP 18; TEMP 36.6; O2SAT 95; BMI 26.9
--- NOTE | 2024-06-10 14:05 | EKG_ITS ---
[address] [address] Test Date: 2024-06-10 Pat Name: Eli Brothers Department: Room: Gender: Female Physician/Allergy/Immunology: IRIS : 1950 Requested By: Order Number: [id number] Reading MD: Rodrigo Loya Measurements Intervals [place] Rate: 97 P: 59 WI: 194 QRS: -4 QRSD: 92 T: 66 QT: 348 QTc: 441 Interpretive Statements Normal sinus rhythm Anterior infarct , age undetermined Electronically Signed On 06-12-2024 8:45:38 PDT by Rodrigo Loya
--- NOTE | 2024-06-10 14:05 | DI.RAD.S_ITS ---
PROCEDURE: XR CHEST 1V INDICATIONS: chest pain TECHNIQUE: One view of the chest was acquired. COMPARISON: [facility], CR, XR CHEST 2V, 04/12/2024, 16:51. FINDINGS: Surgical changes and devices: None. Lungs and pleura: Lungs are clear. No pleural effusions or pneumothorax. Mediastinum: Mediastinal contours appear normal. Heart size is normal. Bones and chest wall: No suspicious bony lesions. Overlying soft tissues appear unremarkable. IMPRESSION: No acute cardiopulmonary abnormality is seen. Approved by: Kenroy Radford M.D. on 06/10/2024 at 13:48
[2024-06-10] MEDS: ASPIRIN 81 MG CHEW TAB 324 MG PO (14:18)
[2024-06-10 14:22] LABS: Add Manual Diff / Slide Review NO; Basophils Absolute Auto 100 /uL (0-100); Basophils Percent Auto 1.5 % (0-2); Eosinophils Absolute Auto 200 /uL (0-450); Eosinophils Percent Auto 3.3 % (2-4); Hematocrit 37.5 % (36-46); Hemoglobin 12.8 g/dL (12.0-16.0); Lymphocytes Absolute Auto 2000 /uL (1100-4500); Lymphocytes Percent Auto 31.5 % (25-40); Mean Corpuscular HGB Conc 34.1 % (30-36); Mean Corpuscular Hemoglobin 29.9 PG (26-34); Mean Corpuscular Volume 87.8 fL (80-100); Monocytes Absolute Auto 400 /uL (0-900); Monocytes Percent Auto 6.7 % (3-14); Neutrophils Absolute Auto 3700 /uL (1500-7000); Platelet Count 240 X10^3/uL (150-400); Red Blood Cell Count 4.27 X10^6/uL (4.0-5.2); Red Cell Distribution Width 13.3 % (11.6-14.8); White Blood Cell Count 6.5 X10^3/uL (4.5-11.0)
[2024-06-10 14:27] LABS: INR 0.9 (0.9-1.3); Prothrombin Time 10.1 SECONDS (9.4-12.5)
[2024-06-10 14:30] VITALS: PULSE 95; RESP 12; O2SAT 94
[2024-06-10 14:30] LABS: PTT Partial Thromboplastin Tim 36 SECONDS (25.1-36.5)
[2024-06-10 14:31] VITALS: BP 144/67; PULSE 95; RESP 15; O2SAT 95
[2024-06-10 14:34] LABS: Alanine Aminotransferase 29 IU/L (<35); Albumin 4.1 g/dL (3.5-5.0); Albumin Globulin Ratio 1.6 (1.0-2.8); Alkaline Phosphatase 53 U/L (38-126); Aspartate Aminotransferase 29 IU/L (14-36); Bilirubin Total 0.4 mg/dL (0.2-1.3); Blood Urea Nitrogen 16 mg/dL (7-17); Calcium 9.1 mg/dL (8.4-10.2); Carbon Dioxide 23 mmol/L (22-32); Chloride 106 mmol/L (98-107); Creatine Kinase 75 U/L (30-135); Estimated Glomerular Filt Rate > 60 mL/min (>60); Globulin 2.6 g/dL (1.7-4.1); Glucose 185 mg/dL (80-110); HEMOLYSIS 19 (0-50); Lipase 66 U/L (23-300); Potassium 3.7 mmol/L (3.4-5.1); Sodium 136 mmol/L (137-145); Total Protein 6.7 g/dL (6.3-8.2)
[2024-06-10 14:45] LABS: NT-proBNP (BNP-Adult 18+) 37 pg/mL (<125); Troponin I < 0.012 ng/mL (0.01-0.034)
[2024-06-10 15:00] VITALS: BP 134/63; PULSE 95; RESP 16; O2SAT 96
--- NOTE | 2024-06-10 15:21 | ED_ITS ---
HPI - Arrhythmia/Palpitations General Chief Complaint: Arrhythmia/Palpitations Stated Complaint: palpatations, hx of heart attack, nausea Time Seen by Provider: 06/10/24 15:14 Source: patient, family, RN notes reviewed and old records reviewed Mode of arrival: Ambulatory Limitations: no limitations History of Present Illness HPI narrative: 73-year-old female history of coronary artery disease with cardiac stent placed in 2017 in the LAD, hypertension, diabetes dyslipidemia, anxiety who presents with complaint of palpitations. Patient states she is moving from [place] to [place] she was at her new home in [place] was resting quietly on a couch when she felt like her heart was skipping a few beats. She felt a little bit nauseated little lightheaded she checked her pulse on her wrist and noted that it was a little irregular. She states she does not feel those symptoms at this time. States everything had resolved. She has not had any fevers or chills. She denies any chest pain or pressure. States this does not feel like when she had her prior [place]. [place] little bit short of breath had some mild nausea but no vomiting. No syncope. Patient states no issues with bowel movements or urination. No new swelling of extremities. States she has on an aspirin 81 mg daily, medication for hypertension, dyslipidemia, anxiety. States surgeries include her cardiac stent in the LAD in 2017, she has had finger surgery for Dupuytren's, breast masses excised and biopsied which were negative for cancer, left ovary was removed secondary to being significantly enlarged and she has had a ex lap right ovarian cyst removed. Has an anaphylactic reaction to sulfa. No tobacco, alcohol or recreational drugs. Komal guy is her primary care provider, Dr. Pineda is her eyelet riveter who she saw approximately a month ago. Related Data Home Medications Medication Instructions Recorded Confirmed aspirin 81 mg chewable tablet 81 mg PO QDAY #90 tabs 08/05/17 05/24/24 cholecalciferol (vitamin D3) 50 2,000 u PO QDAY #90 tabs 08/05/17 05/24/24 mcg (2,000 unit) tablet (Vitamin D3) Resmed Aircurve 10 BIPAP #1 ea 03/22/19 05/24/24 ezetimibe 10 mg tablet (Zetia) 10 mg PO DAILY 03/18/22 05/24/24 mupirocin 2 % topical ointment 1 applic topical BID PRN 07/07/22 05/24/24 nitroglycerin 0.4 mg sublingual 0.4 mg sublingual SEE INSTRUCTIONS 07/07/22 05/24/24 tablet (Nitrostat) PRN #100 tabs rosuvastatin 40 mg tablet 40 mg PO DAILY High cholesterol 10/06/23 05/24/24 folic acid 400 mcg tablet 0.4 mg PO DAILY 10/21/23 05/24/24 calcium carbonate [Calcium 600] PO 01/04/24 05/24/24 aripiprazole 2 mg tablet (Abilify) 1 mg PO QDAY #90 tabs 04/20/24 05/24/24 duloxetine 20 mg capsule,delayed 40 mg PO DAILY 04/20/24 05/24/24 release Previous Rx's Medication Instructions Recorded albuterol sulfate 90 mcg/actuation 2 puff inhalation Q4H PRN 07/07/22 aerosol inhaler (Proventil HFA) shortness of breath or wheezing #6.7 grams acyclovir 800 mg tablet 800 mg PO BID #10 tabs 06/28/23 Estriol 1mg Vaginal Amanda See Rx Instructions .Route 01/04/24 .COMPLEX #36 ea beclomethasone dipropionate 80 1 inh inhalation Q12H #10.6 grams 03/20/24 mcg/actuation HFA breath activated aerosol (Qvar RediHaler) inhalational spacing device (Harry #1 ea 03/20/24 Aerosol [place] Enhancer spacer) benzonatate 100 mg capsule 100 mg PO TID #20 caps 04/20/24 prednisone 20 mg tablet See Rx Instructions .Route 04/20/24 .COMPLEX #12 tabs Allergies Allergy/AdvReac Type Severity Reaction Status Date / Time Sulfa (Sulfonamide Allergy Severe ANAPHYLAXIS Verified 06/10/24 14:02 Antibiotics) [SULFA (SULFONAMIDE ANTIBIOTICS)] amitriptyline [AMITRIPTYLINE] AdvReac Mild ELEVATION Verified 06/10/24 14:02 IN B/P, DIZZINESS AND NAUSEA codeine [CODEINE] AdvReac Mild NAUSEA Verified 06/10/24 14:02 erythromycin base AdvReac Mild DIARRHEA Verified 06/10/24 14:02 [ERYTHROMYCIN BASE] AND VOMITING hydrocodone [HYDROCODONE] AdvReac Mild APPETITE Verified 06/10/24 14:02 AND WEIGHT LOSS lamotrigine [LAMOTRIGINE] AdvReac Mild RASH AND Verified 06/10/24 14:02 PRURITUS meperidine [MEPERIDINE] AdvReac Mild HALLUCINATI Verified 06/10/24 14:02 ONS oxycodone [OXYCODONE] AdvReac Mild SLEEPLESSNE Verified 06/10/24 14:02 SS topiramate [TOPIRAMATE] AdvReac Mild HANDS AND Verified 06/10/24 14:02 FEET..BURNING SENSATION Review of Systems Review of Systems ROS Unobtainable: All systems reviewed & are unremarkable except as noted in HPI and below Patient History Medical History Mild intermittent asthma in adult without complication Anxiety about health Palpitations (06/06/04) Mixed hyperlipidemia (01/02/04) Fibromyalgia (02/03/05) Prediabetes Blood glucose elevated Tobacco use disorder, moderate, in sustained remission, dependence Impaired functional mobility, balance, gait, and endurance Unsteady gait Peripheral neuropathy Incontinence Trigger finger of right hand Memory loss Acute sensory neuropathy Small fiber neuropathy CPAP (continuous positive airway pressure) dependence Migraine Coronary artery disease involving [place] coronary artery of [place] heart Lumbar radiculopathy Arrhythmia Palpitations Vision disorder Hearing loss Sleep apnea Asthma (~2004) Bipolar disorder (~1999) Anxiety (~1973) Idiopathic small fiber sensory neuropathy (~2013) Rubella Mumps Measles Chicken pox Anemia History of thyroid disorder Tinnitus (~1967) Herpes (~1977) History of urinary urgency History of urinary incontinence (~2017) Irritable bowel syndrome (~2007) Hemorrhoid GERD (gastroesophageal reflux disease) (~2010) History of heart attack (~06/2017) Hyperlipidemia (~2009) ST elevation myocardial infarction (STEMI) (06/29/17) Coronary artery disease involving [place] coronary artery of [place] heart without angina pectoris (06/29/17) Cellulitis of right upper extremity (06/29/17) Migraine with visual aura (11/24/16) 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) Paresthesia of both hands (02/14/16) Paresthesia of both feet (02/14/16) Recurrent major depressive disorder, in partial remission (02/11/16) Obstructive sleep apnea syndrome (02/11/16) Moderate persistent asthma without complication (02/11/16) History of tobacco abuse (02/11/16) Generalized anxiety disorder (02/11/16) Gastroesophageal reflux disease without esophagitis (02/11/16) Fibromyalgia (02/11/16) Attention deficit hyperactivity disorder (ADHD), other type (02/11/16) Anemia (02/11/16) Allergic rhinitis due to pollen (02/11/16) Back pain Pain, dental Spinal headache Surgical History Stented coronary artery Anesthesia History of breast biopsy History of oophorectomy (~1988) Dupuytren contracture History of arthroscopic knee surgery History of knee replacement (~2011) Cataracts, bilateral (~12/2017) Family History Mother Cancer Brother Mental health problem Social History marital status: details: kourtney Pratt Jose, lives [address] household members: spouse lives independently: Yes caregiver/support person: No housing: house pets and animals: Yes ([facility]) education level: college Smoking Status: Former smoker Smoking Status: Former smoker Substance Use Type: does not use Exam Narrative Exam Narrative: GENERAL: Alert and oriented x three, female in acute HEENT: Head normocephalic, atraumatic, EOMI, pupils reactive, face symmetric, moist mucous membranes NECK: Supple, full range of motion CARDIOVASCULAR: Regular rate and rhythm without murmurs, rubs or gallops. No JVD. No edema bilateral lower extremities. RESPIRATORY: Breath sounds equal bilaterally, no wheezes rales or rhonchi. ABDOMEN: Soft, nontender. Normoactive bowel sounds all 4 quadrants. No guarding or rebound, rigidity, no mass : No CVA tenderness EXTREMITIES: Normal range of motion, no clubbing or edema. Neurovascularly intact NEUROLOGICAL: Cranial nerves II through XII grossly intact. Moving all extremities SKIN: Warm, dry, no petechiae, no rashes or lesions. Initial Vital Signs Initial Vital Signs: Vital Signs Pulse Rate 106 H 06/10/24 14:00 Blood Pressure 199/90 H 06/10/24 14:00 Pulse Oximetry 96 06/10/24 14:00 Course Orders Ordered: ED Orders 06/10/24 14:05 XR chest 1V Stat EKG-12 Lead Stat 06/10/24 14:10 Complete Blood Count AUTO DIFF Stat Comprehensive Metabolic Panel Stat Lipase Stat Magnesium Stat NT-proBNP (BNP-Adult 18+) Stat PTT Partial Thromboplastin Terence Stat Prothrombin Time INR Stat Troponin & CK Cardiac Panel Stat Discontinued Medications Aspirin (Aspirin 81 Mg Chew Tab) 324 mg PO NOW ONE Stop: 06/10/24 14:06 Last Admin: 06/10/24 14:18 Dose: 243 mg Documented By: JOE Vital Signs Vital signs: Vital Signs - 8 hr 06/10/24 14:00 06/10/24 14:00 06/10/24 14:02 Temperature 97.8 F Pulse Rate 106 H 109 H Respiratory Rate 18 Blood Pressure 199/90 H 199/90 H Pulse Oximetry 96 95 Oxygen Delivery Method Room Air 06/10/24 14:30 06/10/24 14:31 06/10/24 14:31 Temperature Pulse Rate 95 H 95 H Respiratory Rate 12 15 Blood Pressure 144/67 H Pulse Oximetry 94 95 Oxygen Delivery Method Room Air 06/10/24 15:00 06/10/24 15:00 06/10/24 15:30 Temperature Pulse Rate 95 H Respiratory Rate 16 Blood Pressure 134/63 124/81 Pulse Oximetry 96 Oxygen Delivery Method 06/10/24 15:30 Temperature Pulse Rate 86 Respiratory Rate 18 Blood Pressure Pulse Oximetry 95 Oxygen Delivery Method MDM - Arrhythmia/Palpitations Lab Data 06/10/24 14:10 06/10/24 14:10 Labs: Lab Results 06/10/24 Range/Units 14:10 WBC 6.5 (4.5-11.0) X10^3/uL RBC 4.27 (4.0-5.2) X10^6/uL Hgb 12.8 (12.0-16.0) g/dL Hct 37.5 (36-46) % MCV 87.8 (80-100) fL MCH 29.9 (26-34) PG MCHC 34.1 (30-36) % RDW 13.3 (11.6-14.8) % Plt Count 240 (150-400) X10^3/uL Neut % (Auto) 57.0 (50-75) % Lymph % (Auto) 31.5 (25-40) % [place] % (Auto) 6.7 (3-14) % Eos % (Auto) 3.3 (2-4) % Baso % (Auto) 1.5 (0-2) % Neut # (Auto) 3700 (6572-9775) /uL Lymph # (Auto) 2000 (1036-1641) /uL [place] # (Auto) 400 (0-900) /uL Eos # (Auto) 200 (0-450) /uL Baso # (Auto) 100 (0-100) /uL PT 10.1 (9.4-12.5) SECONDS INR 0.9 (0.9-1.3) APTT 36 (25.1-36.5) SECONDS Sodium 136 L (137-145) mmol/L Potassium 3.7 (3.4-5.1) mmol/L Chloride 106 (98-107) mmol/L Carbon Dioxide 23 (22-32) mmol/L BUN 16 (7-17) mg/dL Creatinine 0.64 (0.52-1.04) mg/dL Estimated GFR > 60 (>60) mL/min BUN/Creatinine Ratio 25.0 H (6-22) Glucose 185 H (80-110) mg/dL Calcium 9.1 (8.4-10.2) mg/dL Magnesium 2.0 (1.6-2.3) mg/dL Total Bilirubin 0.4 (0.2-1.3) mg/dL AST 29 (14-36) IU/L ALT 29 (<35) IU/L Alkaline Phosphatase 53 (38-126) U/L Total Creatine Kinase 75 (30-135) U/L Troponin I < 0.012 (0.01-0.034) ng/mL NT-Pro-B Natriuret Pep 37 (<125) pg/mL Total Protein 6.7 (6.3-8.2) g/dL Albumin 4.1 (3.5-5.0) g/dL Globulin 2.6 (1.7-4.1) g/dL Albumin/Globulin Ratio 1.6 (1.0-2.8) Lipase 66 (23-300) U/L ECG Data Attestation: I personally reviewed and interpreted this ECG as follows: Prior ECG tracings: available for review Interpretation: Sinus rhythm rate of 97 MN 194 QRS of 92 QTC 441, no acute ST elevation or depression noted. Patient has prior from 10/09/2022 which appears similar. MDM Narrative Medical decision making narrative: 83-year-old female who presents with complaint of palpitations noted some irregular heartbeat when she checked her pulse. She states she does not have symptoms currently. Does have a cardiac history has had a stent placed in 2017 but states this feels very different from that [place]. Labs show normal CBC, coags are negative sodium is 136 potassium 3.7 chloride 106 with a CO2 of 23 BUN 16 creatinine 0.64 glucose of 185 calcium 9.1 with a Mag of 2, total CK is 75 with troponin less than 0.012 and a BNP of 37. Chest x-ray is negative for acute change EKG shows sinus rhythm rate in the 90s Discussed with patient she has not had any additional arrhythmias here. Was sinus rhythm here in the department would like her to follow up to have Holter monitor or ZIO patch. She has primary care follow up in a couple weeks but will reach out to cardiology on Wednesday morning to set up follow up. Discussed return precautions all questions answered. Discharge Plan Departure Patient Disposition: Home Clinical Impression: Palpitations Instructions: DI for Palpitations Activity Restrictions/Additional Instructions: Follow up with your physician or your eyelet riveter for recheck. Please call to set up a follow up appointment. I would talk with either your physician or eyelet riveter about having a ZIO patch Holter monitor to evaluate for any arrhythmias at home. Please call their office Wednesday morning or use the patient portal contact them. Please return for recurrent symptoms, new chest pain or pressure, shortness of breath, lightheadedness or passing out, diaphoresis or sweatiness, persistent vomiting, new swelling in extremities or other new or concerning changes. Prescriptions: No Action Qvar RediHaler 80 mcg/actuation HFA aerosol breath activated 1 inh inhalation Q12H Qty: 10.6 0RF Rx Instructions: Rinse mouth out after each use to reduce risk of oral thrush (DME) Harry Aerosol [place] Enhancer Spacer See Rx Instructions .Route Qty: 1 0RF Rx Instructions: As directed aspirin 81 MG tablet,chewable 81 mg PO QDAY Qty: 90 cholecalciferol (vitamin D3) [Vitamin D3] 2,000 UNIT tablet 2,000 u PO QDAY Qty: 90 nitroglycerin [Nitrostat] 0.4 mg tablet, sublingual 0.4 mg Sublingual SEE INSTRUCTIONS PRNQty: 100 acyclovir 800 mg tablet 800 mg PO BID Qty: 10 2RF mupirocin 2 % ointment 1 applic topical BID PRN albuterol sulfate [Proventil HFA] 90 mcg/actuation HFA aerosol inhaler 2 puff inhalation Q4H PRN (Reason: shortness of breath or wheezing) Qty: 6.7 2RF rosuvastatin 40 mg tablet 40 mg PO DAILY ezetimibe [Zetia] 10 mg tablet 10 mg PO DAILY folic acid 400 mcg tablet 0.4 mg PO DAILY calcium carbonate [Calcium 600] PO Estriol 1mg Vaginal Amanda See Rx Instructions .ROUTE .COMPLEX Qty: 36 3RF Rx Instructions: Insert vaginally twice weekly. prednisone 20 mg tablet See Rx Instructions .ROUTE .COMPLEX Qty: 12 2RF Rx Instructions: Take 2 tabs (40mg) with food daily x4 days, then decrease to 20mg daily with food for 4 days; benzonatate 100 mg capsule 100 mg PO TID Qty: 20 2RF duloxetine 20 mg capsule,delayed release(DR/EC) 40 mg PO DAILY aripiprazole [Abilify] 2 mg tablet 1 mg PO QDAY Qty: 90 (DME) Resmed Aircurve 10 BIPAP Qty: 1 Dose Instruction: As directed Patient Comments: Pressure: IPAP 12 EPAP 4 DME: [facility] Rx Instructions: As directed Referrals: Komal Guy ARNP [Primary Care Provider] - Stand Alone Forms: Patient Portal/API
[2024-06-10 15:30] VITALS: BP 124/81; PULSE 86; RESP 18; O2SAT 95
== END 2024-06-10 15:48 | disposition home or self-care (01) ==
PROVIDERS: Emergency Provider Emergency Medicine; Family Provider Nurse Practitioner; PCP Nurse Practitioner
DX: R00.2 Palpitations (principal); R42 Dizziness and giddiness
CPT/HCPCS: 36415; 71045; 80053; 82550; 83690; 83735; 83880; 84484; 85025; 85610; 85730; 93005; 99284

== ENCOUNTER → 2024-06-26 11:56 | Outpatient (CLI) | payer MEDICARE, OTHER, SELFPAY | LOC: RESP 11:57 | PROVIDERS: Family Provider Nurse Practitioner; PCP Nurse Practitioner; Referring Provider Nurse Practitioner; Visit Provider Nurse Practitioner | DX: J45.20 Mild intermittent asthma, uncomplicated (principal); Z87.891 Personal history of nicotine dependence | CPT/HCPCS: 94060; 94618; 94726; 94729 ==

== ENCOUNTER → 2024-07-05 13:34 | Outpatient (CLI) | payer MEDICARE, OTHER, SELFPAY | LOC: CAR 13:37 | PROVIDERS: Family Provider Nurse Practitioner; PCP Nurse Practitioner; Referring Provider Nurse Practitioner; Visit Provider Nurse Practitioner | DX: R00.2 Palpitations (principal) | CPT/HCPCS: 93242 ==

== ENCOUNTER → 2024-07-24 06:58 | Outpatient (CLI) | payer MEDICARE, OTHER, SELFPAY ==
[2024-07-24 08:23] LABS: Hemoglobin A1C% w Est Avg Glu 6.1 % (4.0-6.0)
[2024-07-24 08:54] LABS: Free T3, Triiodothyronine Free 3.95 pg/mL (2.77-5.27); Free T4, Direct Thyroxine 0.95 ng/dL (0.78-2.19)
[2024-07-24 09:08] LABS: Thyroid Stimulating Hormone 3.27 uIU/mL (0.47-4.68)
[2024-07-24 09:21] LABS: Cholesterol 171 mg/dL (140-199); HDL Cholesterol 88 mg/dL (40-60); LDL Cholesterol Calculated 61 mg/dL (<100); Triglycerides 109 mg/dL (35-150)
== END ==
LOC: LAB 07:00
PROVIDERS: Family Provider Nurse Practitioner; PCP Nurse Practitioner; Referring Provider Nurse Practitioner; Visit Provider Nurse Practitioner
DX: R73.9 Hyperglycemia, unspecified (principal); E78.2 Mixed hyperlipidemia; F31.9 Bipolar disorder, unspecified; Z79.899 Other long term (current) drug therapy; I10 Essential (primary) hypertension
CPT/HCPCS: 36415; 80061; 83036; 84439; 84443; 84481

== ENCOUNTER → 2024-07-30 07:01 | Outpatient (CLI) | payer MEDICARE, OTHER, SELFPAY ==
--- NOTE | 2024-07-30 | DI.MRI.S_ITS ---
PROCEDURE: MR LUMBAR SPINE WO CON INDICATIONS: LOW BACK PAIN TECHNIQUE: Noncontrast sagittal T1 spin echo and T2 fast echo, sagittal STIR, and T2 fast spin echo through the lumbar spine. In cases with scoliosis, additional coronal T2 fast spin echo may be performed. COMPARISON: None. FINDINGS: Image quality: Excellent. Alignment and Curvature: There is grade 1 4 mm retrolisthesis of L2 on L3. There is also 9 mm anterolisthesis of L5 on S1. Bone Marrow: There is no gross marrow edema. Bilateral pars defects at L5-S1 level is seen. No acute vertebral body compression fractures. Spinal Cord: Conus medullaris terminates at the T12-L1 level. Visualized cord demonstrates normal signal and size. Paraspinous Soft Tissues: No paravertebral masses. T12-L1: Loss of disc height and disc desiccation. No significant canal stenosis or neural foraminal narrowing. L1-L2: Loss of disc height and disc desiccation. No significant canal stenosis or neural foraminal narrowing. L2-L3: Loss of disc height and disc desiccation. Broad-based, more right-sided disc herniation and bilateral facet arthrosis with hypertrophy of ligamentum flavum is seen causing mild central canal stenosis, moderate to severe right-sided neural foraminal narrowing and mild left-sided neural foraminal narrowing. Bulging disc likely compressing right L2 nerve root. L3-L4: Disc desiccation. Mild broad-based disc bulge and bilateral facet arthrosis. No significant canal stenosis or neural foraminal narrowing. L4-L5: No significant disc bulge, canal stenosis or neural foraminal narrowing. L5-S1: Loss of disc height and disc desiccation. Broad-based disc bulge and bilateral facet arthrosis. No significant central canal stenosis. Moderate to severe left-sided neural foraminal narrowing is seen. Mild right-sided neural foraminal narrowing is noted. Bulging disc is seen contacting left L5 nerve root. IMPRESSION: 1. Bilateral pars defects at L5-S1 level with 9 mm anterolisthesis of L5 on S1. Likely degenerative grade 1 retrolisthesis at L2-3 level. No marrow edema. No acute vertebral body compression fracture. 2. Degenerative disc disease throughout lumbar spine causing various degrees of central canal stenosis and neural foraminal narrowing more notably at L2-3 and L5-S1 levels as above. Dictated by: Félix Palmer M.D. on 07/31/2024 at 14:10 Approved by: Félix Palmer M.D. on 07/31/2024 at 14:25
== END ==
LOC: MRI 07:02
PROVIDERS: Family Provider Nurse Practitioner; PCP Nurse Practitioner; Referring Provider Physical Medicine & Rehabilitation Pain Medicine; Visit Provider Physical Medicine & Rehabilitation Pain Medicine
DX: M51.36 Other intervertebral disc degeneration, lumbar region (principal); M51.37 Other intervertebral disc degeneration, lumbosacral region; M48.061 Spinal stenosis, lumbar region without neurogenic claudication; M48.07 Spinal stenosis, lumbosacral region; M47.817 Spondylosis without myelopathy or radiculopathy, lumbosacral region; M47.816 Spondylosis without myelopathy or radiculopathy, lumbar region; M43.17 Spondylolisthesis, lumbosacral region; M54.50 Low back pain, unspecified
CPT/HCPCS: 72148

== ENCOUNTER → 2024-09-28 07:14 | Outpatient (CLI) | payer MEDICARE, OTHER, SELFPAY ==
--- NOTE | 2024-09-28 | DI.CT.S_ITS ---
PROCEDURE: CT LUMBAR SPINE WO CON INDICATIONS: Spinal stenosis, lumbar region with neurogenic claudication TECHNIQUE: Noncontrast 3 mm thick sections acquired from the T12 level to the sacrum. Sagittal and coronal reformats were constructed. For radiation dose reduction, the following was used: automated exposure control. COMPARISON: None. FINDINGS: Image quality: Excellent. Bones: Bilateral L5 pars defects and grade 2 anterior spondylolisthesis L5-S1. Sclerotic degenerative endplate changes L2-3 T12-L1: No central or foraminal stenosis L1-L2: No central or foraminal stenosis L2-L3: Hypertrophic arthropathy results moderate right and mild left foraminal stenosis. No central stenosis. L3-L4: No central or foraminal stenosis L4-L5: No central or foraminal stenosis L5-S1: No central stenosis. Severe bilateral foraminal stenosis Soft tissues: No retroperitoneal masses or hematomas. Visualized aorta is normal in caliber. IMPRESSION: Grade 2 isthmic spondylolisthesis at L5-S1 results in severe bilateral foraminal stenosis Approved by: Kenroy Radford M.D. on 09/28/2024 at 17:14
== END ==
PROVIDERS: Family Provider Nurse Practitioner; PCP Family Medicine; Referring Provider Orthopaedic Surgery Orthopaedic Surgery of the Spine; Visit Provider Orthopaedic Surgery Orthopaedic Surgery of the Spine
DX: M48.062 Spinal stenosis, lumbar region with neurogenic claudication (principal); M48.07 Spinal stenosis, lumbosacral region; M43.17 Spondylolisthesis, lumbosacral region
CPT/HCPCS: 72131

== ENCOUNTER → 2024-10-23 10:57 | Outpatient (CLI) | payer MEDICARE, OTHER, SELFPAY ==
[2024-10-23 12:09] LABS: Add Manual Diff / Slide Review NO; Basophils Absolute Auto 100 /uL (0-100); Basophils Percent Auto 1.3 % (0-2); Eosinophils Absolute Auto 200 /uL (0-450); Eosinophils Percent Auto 3.1 % (2-4); Hematocrit 38.1 % (36-46); Hemoglobin 12.7 g/dL (12.0-16.0); Lymphocytes Absolute Auto 1600 /uL (1100-4500); Lymphocytes Percent Auto 26.4 % (25-40); Mean Corpuscular HGB Conc 33.4 % (30-36); Mean Corpuscular Hemoglobin 29.3 PG (26-34); Mean Corpuscular Volume 87.8 fL (80-100); Monocytes Absolute Auto 500 /uL (0-900); Monocytes Percent Auto 8.1 % (3-14); Neutrophils Absolute Auto 3700 /uL (1500-7000); Neutrophils Percent Auto 61.1 % (50-75); Platelet Count 242 X10^3/uL (150-400); Red Blood Cell Count 4.34 X10^6/uL (4.0-5.2); Red Cell Distribution Width 13.3 % (11.6-14.8); White Blood Cell Count 6.1 X10^3/uL (4.5-11.0)
[2024-10-23 12:28] LABS: INR 0.8 (0.9-1.3); Prothrombin Time 9.4 SECONDS (9.4-12.5)
[2024-10-23 12:30] LABS: Alanine Aminotransferase 43 IU/L (<35); Albumin Globulin Ratio 1.6 (1.0-2.8); Alkaline Phosphatase 55 U/L (38-126); Aspartate Aminotransferase 37 IU/L (14-36); BUN Creatinine Ratio 17.6 (6-22); Bilirubin Total 0.3 mg/dL (0.2-1.3); Blood Urea Nitrogen 12 mg/dL (7-17); Calcium 9.2 mg/dL (8.4-10.2); Carbon Dioxide 30 mmol/L (22-32); Chloride 103 mmol/L (98-107); Estimated Glomerular Filt Rate > 60 mL/min (>60); Globulin 2.5 g/dL (1.7-4.1); Glucose 102 mg/dL (80-110); HEMOLYSIS < 15 (0-50); Potassium 4.6 mmol/L (3.4-5.1); Sodium 136 mmol/L (137-145); Total Protein 6.5 g/dL (6.3-8.2)
== END ==
PROVIDERS: Family Provider Nurse Practitioner; PCP Family Medicine; Referring Provider Family Medicine; Visit Provider Family Medicine
DX: Z01.810 Encounter for preprocedural cardiovascular examination (principal); E78.2 Mixed hyperlipidemia; I10 Essential (primary) hypertension; R73.03 Prediabetes
CPT/HCPCS: 36415; 80053; 85025; 85610

== ENCOUNTER → 2024-10-23 14:20 | Outpatient (CLI) | payer MEDICARE, OTHER, SELFPAY ==
[2024-10-26 21:11] LABS: Calprotectin, Stool 17 ug/g (0-120)
== END ==
PROVIDERS: Family Provider Nurse Practitioner; PCP Family Medicine; Referring Provider Internal Medicine Gastroenterology; Visit Provider Internal Medicine Gastroenterology
DX: K64.8 Other hemorrhoids (principal); R10.31 Right lower quadrant pain; Z01.810 Encounter for preprocedural cardiovascular examination; K92.1 Melena; R19.4 Change in bowel habit; E78.2 Mixed hyperlipidemia; I10 Essential (primary) hypertension; R73.03 Prediabetes
CPT/HCPCS: 36415; 80053; 83993; 85025; 85610

== ENCOUNTER → 2024-11-02 14:43 | Outpatient (CLI) | payer MEDICARE, OTHER, SELFPAY ==
--- NOTE | 2024-11-02 14:54 | EKG_ITS ---
[place] [address] [place] [id number] Test Date: 2024-11-02 Pat Name: Eli Brothers Department: 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
== END ==
LOC: RESP 14:46
PROVIDERS: Family Provider Nurse Practitioner; PCP Family Medicine; Referring Provider Family Medicine; Visit Provider Family Medicine
DX: Z01.818 Encounter for other preprocedural examination (principal)
CPT/HCPCS: 93005

== ENCOUNTER → 2025-01-23 07:00 | Outpatient (CLI) | payer MEDICARE, OTHER, SELFPAY ==
[2025-01-23 07:42] LABS: Add Manual Diff / Slide Review NO; Basophils Absolute Auto 100 /uL (0-100); Basophils Percent Auto 1.9 % (0-2); Eosinophils Absolute Auto 200 /uL (0-450); Eosinophils Percent Auto 3.4 % (2-4); Hemoglobin 13.3 g/dL (12.0-16.0); Lymphocytes Absolute Auto 1800 /uL (1100-4500); Lymphocytes Percent Auto 33.3 % (25-40); Mean Corpuscular HGB Conc 33.2 % (30-36); Mean Corpuscular Hemoglobin 29.3 PG (26-34); Mean Corpuscular Volume 88.3 fL (80-100); Monocytes Absolute Auto 500 /uL (0-900); Monocytes Percent Auto 9.9 % (3-14); Neutrophils Absolute Auto 2700 /uL (1500-7000); Neutrophils Percent Auto 51.5 % (50-75); Platelet Count 238 X10^3/uL (150-400); Red Blood Cell Count 4.53 X10^6/uL (4.0-5.2); Red Cell Distribution Width 13.7 % (11.6-14.8); White Blood Cell Count 5.3 X10^3/uL (4.5-11.0)
[2025-01-23 08:28] LABS: Alanine Aminotransferase 40 IU/L (<35); Albumin 4.4 g/dL (3.5-5.0); Albumin Globulin Ratio 1.8 (1.0-2.8); Alkaline Phosphatase 58 U/L (38-126); Aspartate Aminotransferase 34 IU/L (14-36); BUN Creatinine Ratio 16.9 (6-22); Bilirubin Total 0.4 mg/dL (0.2-1.3); Blood Urea Nitrogen 11 mg/dL (7-17); Calcium 9.4 mg/dL (8.4-10.2); Carbon Dioxide 27 mmol/L (22-32); Chloride 102 mmol/L (98-107); Cholesterol 195 mg/dL (140-199); Estimated Glomerular Filt Rate > 60 mL/min (>60); Globulin 2.5 g/dL (1.7-4.1); Glucose 108 mg/dL (80-110); HDL Cholesterol 78 mg/dL (40-60); HEMOLYSIS < 15 (0-50); LDL Cholesterol Calculated 84 mg/dL (<100); Potassium 4.9 mmol/L (3.4-5.1); Sodium 137 mmol/L (137-145); Total Protein 6.9 g/dL (6.3-8.2); Triglycerides 164 mg/dL (35-150)
[2025-01-23 08:44] LABS: Hemoglobin A1C% w Est Avg Glu 5.8 % (4.0-6.0)
[2025-01-23 08:57] LABS: TSH w/ Reflex to FT4 5.82 uIU/mL (0.47-4.68)
[2025-01-23 09:41] LABS: Free T4, Direct Thyroxine 0.99 ng/dL (0.78-2.19)
== END ==
PROVIDERS: Family Provider Nurse Practitioner; PCP Family Medicine; Referring Provider Family Medicine; Visit Provider Family Medicine
DX: E78.2 Mixed hyperlipidemia (principal); R73.03 Prediabetes; I10 Essential (primary) hypertension; Z86.39 Personal history of other endocrine, nutritional and metabolic disease
CPT/HCPCS: 36415; 80053; 80061; 83036; 84439; 84443; 85025

== ENCOUNTER → 2025-01-27 07:51 | Outpatient (CLI) | payer MEDICARE, OTHER, SELFPAY ==
--- NOTE | 2025-01-27 07:53 | DI.MG.S_ITS ---
MM screening mammo BI: 01/27/2025. BI-RADS: 1 CLINICAL: 74-year old female for bilateral screening mammogram. Tyrer-Cuzick lifetime risk of 5.1%. No personal or first-degree family history of breast cancer. The patient reports testing negative for BRCA gene mutation. The patient had prior bilateral breast biopsies. PRIOR EXAMS 12/06/2023, 11/11/2022, 10/30/2021, 01/08/2021, 12/28/2019, 12/12/2018, 08/09/2017, 07/30/2016, 12/23/2015, 06/17/2015, 06/11/2015. MAMMOGRAPHY TECHNIQUE: 2D and 3D (tomosynthesis) digital mammographic views obtained, with additional images as needed for full coverage. Current study was also evaluated with a Computer Aided Detection (CAD) system. DENSITY C. The breasts are heterogeneously dense, which may obscure small masses. MAMMOGRAPHY FINDINGS Bilateral: No suspicious mass, asymmetry, microcalcification, or other abnormality seen. No significant change from comparison. IMPRESSION: * No evidence of malignancy. RECOMMENDATIONS Bilateral * Annual screening mammography. OVERALL ASSESSMENT CATEGORY BI-RADS-1: Negative. The [employer] recommends annual screening mammography beginning at age 40 for women with average risk of breast cancer. ELECTRONICALLY SIGNED: Renetta Curtis M.D. on 01/30/2025 at 08:51:34 AM PT Interpreting Station ID: [id number]
== END ==
PROVIDERS: Family Provider Nurse Practitioner; PCP Family Medicine; Referring Provider Family Medicine; Visit Provider Family Medicine
DX: Z12.31 Encounter for screening mammogram for malignant neoplasm of breast (principal); R92.333 Mammographic heterogeneous density, bilateral breasts
CPT/HCPCS: 77063; 77067

== ENCOUNTER 2025-03-19 08:15 | Outpatient (RCR) | payer MEDICARE, OTHER, SELFPAY ==
--- NOTE | 2025-01-29 09:14 | PT.OIE ---
Current Diagnoses Other acute postprocedural pain (01/29/25) Low back pain, unspecified (01/29/25) Past Medical History (Last Updated 01/26/25 @ 09:45 by Brice Cavazos DO) Acute sensory neuropathy Allergic rhinitis due to pollen (02/11/16) Anemia (02/11/16) Anemia Anterolisthesis of lumbar spine Anxiety (~1973) Anxiety about health Arrhythmia Asthma (~2004) Attention deficit hyperactivity disorder (ADHD), other type (02/11/16) Back pain Bilateral low back pain with right-sided sciatica Bipolar disorder (~1999) Blood glucose elevated Cellulitis of right upper extremity (06/29/17) Chicken pox Coronary artery disease involving [place] coronary artery of [place] heart Coronary artery disease involving [place] coronary artery of [place] heart without angina pectoris (06/29/17) CPAP (continuous positive airway pressure) dependence Fibromyalgia (02/11/16) Fibromyalgia (02/03/05) Gastroesophageal reflux disease without esophagitis (02/11/16) Generalized anxiety disorder (02/11/16) GERD (gastroesophageal reflux disease) (~2010) Hearing loss Hemorrhoid Herpes (~1977) History of heart attack (~06/2017) History of thyroid disorder History of tobacco abuse (02/11/16) History of urinary incontinence (~2017) History of urinary urgency Hyperlipidemia (~2009) Hypothyroidism (acquired) 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) Impaired functional mobility, balance, gait, and endurance Incontinence Irritable bowel syndrome (~2007) Lumbar radiculopathy Measles Memory loss Migraine Migraine with visual aura (11/24/16) Mild intermittent asthma in adult without complication Moderate persistent asthma without complication (02/11/16) Mumps Obstructive sleep apnea syndrome (02/11/16) Pain, dental Palpitations Palpitations (06/06/04) Paresthesia of both feet (02/14/16) Paresthesia of both hands (02/14/16) Peripheral neuropathy Postoperative visit Prediabetes Recurrent major depressive disorder, in partial remission (02/11/16) Retrolisthesis of vertebrae Rubella Sleep apnea Small fiber neuropathy Spinal headache ST elevation myocardial infarction (STEMI) (06/29/17) Tinnitus (~1967) Tobacco use disorder, moderate, in sustained remission, dependence Transaminitis Trigger finger of right hand Unsteady gait Urinary incontinence Vision disorder Past Surgical History (Last Updated 12/15/24 @ 11:02 by Brice Cavazos DO) Anesthesia Cataracts, bilateral (~12/2017) Dupuytren contracture History of arthroscopic knee surgery History of breast biopsy History of knee replacement (~2011) History of oophorectomy (~1988) Status post lumbar surgery Stented coronary artery Visit Care Team Role Provider Type Brice Cavazos DO Primary Care Provider Physician Specialty: [facility] Practice Address: [address] [place] [address], [id number] Email: JOCELYN Tineo Family Provider Non-Staff Specialty: [facility] Address: [address] [place] [address], [id number] Email: Guille Villanueva MD Attending Provider Non-Staff Referring Provider Specialty: Neurosurgery Address: [facility], [address] [place] [address], [place], [address] Email: Physical Therapy Initial Evaluation PT-OP-A Visit Information Start: 01/22/25 15:53 Freq: Status: Active Protocol: Document 01/29/25 07:27 MB (Rec: 01/29/25 08:12 [id number]) Out-Patient Physical Therapy Visit Information Visit Information Visit Type Initial Evaluation Visit Note 12/03 before KX Visit Start Time 07:27 Visit Stop Time 08:07 Visit Number 1 Number of SONOGRAPHY TECHNICIAN Visits 0 Evaluation Information Evaluation Date 01/29/25 Precautions Precautions History of CA and stents, back precautions until 02/19/25 PT-OP-B Current Condition Start: 01/22/25 15:53 Freq: Status: Active Protocol: Document 01/29/25 07:27 MB (Rec: 01/29/25 08:12 [id number]) Current Condition History of Current Condition Onset Date 11/20/24 Current Complaints Pt reports impatience for restrictions to be lifted History of Current Condition Pt underwent L5-1 fusion . She has no BLT until . Pt would like to get back to treadmill for 30 minutes without having to stop. Pt would like to get back to walking on the beach but is not doing so now d/t the unevenness. She would like to get back to picking up dog bowls off the floor and feed the cats. 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 She is sleeping okay. She just found out that her thyroid is messed up. She just started synthroid. PMH includes heart attack s/p stenting, BiPaP at night for RUBENS, several hand surgeries from tendon issues, B partial TKRs, right ovary removed, B lumpectomies (benign). Treatment Goals Patient/Caregiver Goals Walking 30 minutes on treadmill, walking on the beach, feeding the cats and picking up the dog bowls. PT-OP-C Subjective Start: 01/22/25 15:53 Freq: Status: Active Protocol: Document 01/29/25 07:27 MB (Rec: 01/29/25 08:12 MB [id number]) OP-PT Subjective Patient Comments Patient Comments See history of current condition Patient Questionnaires Oswestry Low Back Index Oswestry Score 19 Oswestry Impairment 20 to 39% Impaired (Score 20- 39) PT-OP-D Balance Start: 01/22/25 15:53 Freq: Status: Active Protocol: Document 01/29/25 07:27 MB (Rec: 01/29/25 08:12 MB [id number]) OP-PT Balance Assessment Standing Balance Standing Balance Comments Standing posture with shoes off: left greater than right rounded shoulders, forward head, Dowager's hump and then decreased kyphosis and then increased kyphosis and mild right convexity mid thoracic spine, change of curve lower thoracic spine, left iliac crest higher than the right. Anterior and posterior surgical scars, overpronation left ankle, left arm rests more anterior than the right. Rollins Fall Scale Copyright Permission PT-OP-G Mobility & Gait Start: 01/22/25 15:53 Freq: Status: Active Protocol: Document 01/29/25 07:27 MB (Rec: 01/29/25 08:12 MB [id number]) OP Mobility Evaluation Bed Mobility Rolling Log roll today on and off plinth OP Gait Assessment Comments Gait Comments Gait with shoes off: very stiff shoulders and decreased arm swing, forward and rounded shoulders PT-OP-J Posture/Palpation/Skin Start: 01/22/25 15:53 Freq: Status: Active Protocol: Document 01/29/25 07:27 MB (Rec: 01/29/25 09:02 MB [id number]) Posture Evaluation Comments Posture Comments Standing posture with shoes off: left greater than right rounded shoulders, forward head, Dowager's hump and then decreased kyphosis and then increased kyphosis and mild right convexity mid thoracic spine, change of curve lower thoracic spine, left iliac crest higher than the right. Anterior and posterior surgical scars, overpronation left ankle, left arm rests more anterior than the right. PT-OP-M Strength Start: 01/22/25 15:53 Freq: Status: Active Protocol: Document 01/29/25 07:27 MB (Rec: 01/29/25 08:12 MB [id number]) Hip Strength Hip Manual Muscle Testing Left Flexion (L2) 5 Normal Extension (S1) 4+ Good+ Abduction 5 Normal Right Flexion (L2) 5 Normal Extension (S1) 4+ Good+ Abduction 5 Normal Comments MMT in supine for all LE muscles Knee Strength Knee Manual Muscle Testing Left Flexion (S2) 5 Normal Extension (L3) 5 Normal Right Flexion (S2) 5 Normal Extension (L3) 5 Normal Ankle/Foot Strength Ankle and Foot Manual Muscle Testing Left Dorsiflexion (L4) 5 Normal Right Dorsiflexion (L4) 5 Normal Toe Strength Toe Manual Muscle Testing Left Great Toe Extension 5 Normal Right Great Toe Extension 4+ Good+ PT-OP-Q Treatments Start: 01/22/25 15:53 Freq: Status: Active Protocol: Document 01/29/25 07:27 MB (Rec: 01/29/25 08:12 [id number]) Therapeutic Exercises Supine Exercises Pelvic realignment exercises Supine Exercise Name HEP and provided handout Side bilateral Reps/Minutes 5 reps, 3 sec hold all exercises in order Comments Feet together ball squeeze iso , knee opp ankle iso, thigh press down iso Self-Care/Home Management Treatment Education Patient Education Body Mechanics,Home Exercise Program,Joint Protection, Safety Other Education Ed pt on log roll, no BLT, proper pillow support, provided handout and she is doing all these already at home, ed on benefits of wearing hiking boots if walking on uneven surfaces, ed on crossing leg over knee in sitting to don lace up shoes and pt is able to perform today in sitting PT-OP-T Assessment and Plan Start: 01/22/25 15:53 Freq: Status: Active Protocol: Document 01/29/25 07:27 MB (Rec: 01/29/25 08:12 MB [id number]) Physical Therapy Assessment Rehab Potential Rehabilitation Potential Good Evaluation Complexity Number of Personal Factors/Comorbidities 1-2 Number of Body Systems Impaired 1-2 Clinical Presentation at Evaluation Evolving Impairments Impairments Activity Tolerance,Balance, Functional Activities, Functional Mobility,Gait,Pain, Posture,ROM,Sensation,Soft Tissue Mobility,Strength, Transfers Goals 4 Impairment Inability to walk on the beach d/t fear of instability Contract Preparer Goal (LTG) Pt will perform WNLs on FGA to allow return to beach walking . LTG Duration 8 weeks 3 Impairment Lack of HEP Contract Preparer Goal (LTG) Pt will perform progressive HEP with I including alignment , gentle flexibility, core and LE strengthening and balance exercises to improve pain and mobility. LTG Duration 8 weeks 2 Impairment Inability to walk 30 minutes on treadmill greater than speed 3 Impairment . Short Term Goal (STG) . STG Duration . Contract Preparer Goal (LTG) Pt will gait train at least 1614 feet in 6 minutes to improve community ambulation and treadmill walking for exercise. LTG Duration 8 weeks 1 Impairment Oswestry reflects 38% impairment [facility] Goal (LTG) Pt will present with Oswestry score reflecting no more than 15% impairment to improve pain and quality of life. LTG Duration 8 weeks Assessment Summary Assessment Pt is a 74 y/o female presenting post-op L5-S1 fusion on 11/20/24 per her report. Doctor's order stated 11/21/24. Pt has anterior and posterior incision scars. Overall, pt presents with good gait and tolerable pain post- op. Pt only gets pain when she sits or stands too long and pain is only in her back. She reports right foot weakness is much better post-op and she presents with minor weakness in great right toe extension today. She has post-op myofascial restrictions in abdomen, spine and hip muscles and she has been compliant with log rolling and back precautions. She has a history of idiopathic neuropathy that was not affected by surgery. Her goals are to get back to feeding her cats and dog and changing cat box, walking on the beach for 30 minutes and walking on the treadmill 30 minutes at speed 3 or greater. Pt will benefit from PT to progress towards these goals. Physical Therapy Plan Frequency and Duration Frequency of Treatment 2x/Week Duration of treatment (weeks) 8 Plan of Care Start Date 01/29/25 Plan of Care End Date 03/31/25 Therapeutic Interventions Therapeutic Interventions Balance Training,Canalithic Repositioning,Coordination Training,Gait Training,Home Exercise Program,Joint Mobilizations,Manual Therapy, Neuromuscular Re-education, Patient/Caregiver Education, Self-Care/Home Management,Soft Tissue Mobilization,Taping, Therapeutic Activities, Therapeutic Exercises Modalities Cold Pack/Ice Massage,Electric Stimulation,Hot Packs, Ultrasound Next Visit Focus/Plan Next Note Type Treatment Note Next Visit Plan Review pelvic realignment exercises and initiate flexibility exercises like hip rotators, hamstrings and hip flexors and calves Manual assessment and work 6MWT and FGA, progress balance training over terrains to prepare for walking on the beach Progress to core and LE strengthening, progress to squating activities so she can manage cat box, feeding dog and cats
--- NOTE | 2025-01-29 09:14 | PT.OPPOC ---
Physical, Occupational & Speech Therapy At [facility] Current Diagnoses Other acute postprocedural pain (01/29/25) Low back pain, unspecified (01/29/25) Visit Care Team Role Provider Type Brice Cavazos DO Primary Care Provider Physician Specialty: [facility] Practice Address: [address] [place] [address], [address] Email: OJCELYN Tineo Family Provider Non-Staff Specialty: Family Practice Address: [address] [place] [address], [address] Email: Guille Villanueva MD Attending Provider Non-Staff Referring Provider Specialty: Neurosurgery Address: [facility], [address] [place] [address], [place], [address] Email: Plan Of Care PT-OP-B Current Condition Start: 01/22/25 15:53 Freq: Status: Active Protocol: Document 01/29/25 07:27 MB (Rec: 01/29/25 08:12 MB [id number]) Current Condition History of Current Condition Onset Date 11/20/24 Current Complaints Pt reports impatience for restrictions to be lifted History of Current Condition Pt underwent L5-1 fusion . She has no BLT until . Pt would like to get back to treadmill for 30 minutes without having to stop. Pt would like to get back to walking on the beach but is not doing so now d/t the unevenness. She would like to get back to picking up dog bowls off the floor and feed the cats. 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 She is sleeping okay. She just found out that her thyroid is messed up. She just started synthroid. PMH includes heart attack s/p stenting, BiPaP at night for RUBENS, several hand surgeries from tendon issues, B partial TKRs, right ovary removed, B lumpectomies (benign). Treatment Goals Patient/Caregiver Goals Walking 30 minutes on treadmill, walking on the beach, feeding the cats and picking up the dog bowls. PT-OP-T Assessment and Plan Start: 01/22/25 15:53 Freq: Status: Active Protocol: Document 01/29/25 07:27 MB (Rec: 01/29/25 08:12 MB [id number]) Physical Therapy Assessment Rehab Potential Rehabilitation Potential Good Evaluation Complexity Number of Personal Factors/Comorbidities 1-2 Number of Body Systems Impaired 1-2 Clinical Presentation at Evaluation Evolving Impairments Impairments Activity Tolerance,Balance, Functional Activities, Functional Mobility,Gait,Pain, Posture,ROM,Sensation,Soft Tissue Mobility,Strength, Transfers Goals 4 Impairment Inability to walk on the beach d/t fear of instability Nursing Home Goal (LTG) Pt will perform WNLs on FGA to allow return to beach walking . LTG Duration 8 weeks 3 Impairment Lack of HEP Nursing Home Goal (LTG) Pt will perform progressive HEP with I including alignment , gentle flexibility, core and LE strengthening and balance exercises to improve pain and mobility. LTG Duration 8 weeks 2 Impairment Inability to walk 30 minutes on treadmill greater than speed 3 Impairment . Short Term Goal (STG) . STG Duration . Computer Engineering Professor Goal (LTG) Pt will gait train at least 1614 feet in 6 minutes to improve community ambulation and treadmill walking for exercise. LTG Duration 8 weeks 1 Impairment Oswestry reflects 38% impairment Nursing Home Goal (LTG) Pt will present with Oswestry score reflecting no more than 15% impairment to improve pain and quality of life. LTG Duration 8 weeks Assessment Summary Assessment Pt is a 74 y/o female presenting post-op L5-S1 fusion on 11/20/24 per her report. Doctor's order stated 11/21/24. Pt has anterior and posterior incision scars. Overall, pt presents with good gait and tolerable pain post- op. Pt only gets pain when she sits or stands too long and pain is only in her back. She reports right foot weakness is much better post-op and she presents with minor weakness in great right toe extension today. She has post-op myofascial restrictions in abdomen, spine and hip muscles and she has been compliant with log rolling and back precautions. She has a history of idiopathic neuropathy that was not affected by surgery. Her goals are to get back to feeding her cats and dog and changing cat box, walking on the beach for 30 minutes and walking on the treadmill 30 minutes at speed 3 or greater. Pt will benefit from PT to progress towards these goals. Physical Therapy Plan Frequency and Duration Frequency of Treatment 2x/Week Duration of treatment (weeks) 8 Plan of Care Start Date 01/29/25 Plan of Care End Date 03/31/25 Therapeutic Interventions Therapeutic Interventions Balance Training,Canalithic Repositioning,Coordination Training,Gait Training,Home Exercise Program,Joint Mobilizations,Manual Therapy, Neuromuscular Re-education, Patient/Caregiver Education, Self-Care/Home Management,Soft Tissue Mobilization,Taping, Therapeutic Activities, Therapeutic Exercises Modalities Cold Pack/Ice Massage,Electric Stimulation,Hot Packs, Ultrasound Next Visit Focus/Plan Next Note Type Treatment Note Next Visit Plan Review pelvic realignment exercises and initiate flexibility exercises like hip rotators, hamstrings and hip flexors and calves Manual assessment and work 6MWT and FGA, progress balance training over terrains to prepare for walking on the beach Progress to core and LE strengthening, progress to squating activities so she can manage cat box, feeding dog and cats Plan of Care Dates Plan of Care Start Date 01/29/25 Plan of Care End Date 03/31/25 Electronically Signed by: Jhoana Blue, PT 01/29/25 0914 If you are in agreement with this Plan of Care, please return a signed and dated copy. I have reviewed this Plan of Care and certify that the skilled therapy services above are required to meet the patient?s needs. Physician Signature Date Printed Name and Credentials Clinical Instructor Signature Printed Name and Credentials
--- NOTE | 2025-02-01 08:17 | PT.OTN ---
Current Diagnoses Other acute postprocedural pain (02/01/25) Low back pain, unspecified (02/01/25) Physical Therapy Treatment Note PT-OP-A Visit Information Start: 01/22/25 15:53 Freq: Status: Active Protocol: Document 02/01/25 07:32 SP (Rec: 02/01/25 08:18 SP [id number]) Out-Patient Physical Therapy Visit Information Visit Information Visit Type Treatment Note Visit Note 01/03 before KX Visit Start Time 07:32 Visit Stop Time 08:17 Visit Number 2 Number of LAN SPECIALIST Visits 1 Evaluation Information Evaluation Date 01/29/25 Precautions Precautions History of DC and stents, back precautions until 02/19/25 PT-OP-B Current Condition Start: 01/22/25 15:53 Freq: Status: Active Protocol: Document 01/29/25 07:27 MB (Rec: 01/29/25 08:12 MB [id number]) Current Condition History of Current Condition Onset Date 11/20/24 Current Complaints Pt reports impatience for restrictions to be lifted History of Current Condition Pt underwent L5-1 fusion . She has no BLT until . Pt would like to get back to treadmill for 30 minutes without having to stop. Pt would like to get back to walking on the beach but is not doing so now d/t the unevenness. She would like to get back to picking up dog bowls off the floor and feed the cats. 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 She is sleeping okay. She just found out that her thyroid is messed up. She just started synthroid. PMH includes heart attack s/p stenting, BiPaP at night for RUBENS, several hand surgeries from tendon issues, B partial TKRs, right ovary removed, B lumpectomies (benign). Treatment Goals Patient/Caregiver Goals Walking 30 minutes on treadmill, walking on the beach, feeding the cats and picking up the dog bowls. PT-OP-C Subjective Start: 01/22/25 15:53 Freq: Status: Active Protocol: Document 02/01/25 07:32 SP (Rec: 02/01/25 08:18 SP [id number]) OP-PT Subjective Patient Comments Patient Comments Pt reports got her ball but didnt' have toggle to keep inflated so didn't get to do that 1. She stated she dropped something that could hurt her dog so squatted quickly and irritated her back and still feeling it. PT-OP-D Balance Start: 01/22/25 15:53 Freq: Status: Active Protocol: Document 01/29/25 07:27 MB (Rec: 01/29/25 08:12 MB [id number]) OP-PT Balance Assessment Standing Balance Standing Balance Comments Standing posture with shoes off: left greater than right rounded shoulders, forward head, Dowager's hump and then decreased kyphosis and then increased kyphosis and mild right convexity mid thoracic spine, change of curve lower thoracic spine, left iliac crest higher than the right. Anterior and posterior surgical scars, overpronation left ankle, left arm rests more anterior than the right. Rollins Fall Scale Copyright Permission PT-OP-G Mobility & Gait Start: 01/22/25 15:53 Freq: Status: Active Protocol: Document 01/29/25 07:27 MB (Rec: 01/29/25 08:12 MB [id number]) OP Mobility Evaluation Bed Mobility Rolling Log roll today on and off plinth OP Gait Assessment Comments Gait Comments Gait with shoes off: very stiff shoulders and decreased arm swing, forward and rounded shoulders PT-OP-J Posture/Palpation/Skin Start: 01/22/25 15:53 Freq: Status: Active Protocol: Document 01/29/25 07:27 MB (Rec: 01/29/25 09:02 MB [id number]) Posture Evaluation Comments Posture Comments Standing posture with shoes off: left greater than right rounded shoulders, forward head, Dowager's hump and then decreased kyphosis and then increased kyphosis and mild right convexity mid thoracic spine, change of curve lower thoracic spine, left iliac crest higher than the right. Anterior and posterior surgical scars, overpronation left ankle, left arm rests more anterior than the right. PT-OP-M Strength Start: 01/22/25 15:53 Freq: Status: Active Protocol: Document 01/29/25 07:27 MB (Rec: 01/29/25 08:12 MB [id number]) Hip Strength Hip Manual Muscle Testing Left Flexion (L2) 5 Normal Extension (S1) 4+ Good+ Abduction 5 Normal Right Flexion (L2) 5 Normal Extension (S1) 4+ Good+ Abduction 5 Normal Comments MMT in supine for all LE muscles Knee Strength Knee Manual Muscle Testing Left Flexion (S2) 5 Normal Extension (L3) 5 Normal Right Flexion (S2) 5 Normal Extension (L3) 5 Normal Ankle/Foot Strength Ankle and Foot Manual Muscle Testing Left Dorsiflexion (L4) 5 Normal Right Dorsiflexion (L4) 5 Normal Toe Strength Toe Manual Muscle Testing Left Great Toe Extension 5 Normal Right Great Toe Extension 4+ Good+ PT-OP-Q Treatments Start: 01/22/25 15:53 Freq: Status: Active Protocol: Document 02/01/25 07:32 SP (Rec: 02/01/25 08:18 SP [id number]) Therapeutic Exercises Supine Exercises Stretching Supine Exercise Name 1. HS /c AP 2. piriformis (IR opp knee bent) 3. TA hip roll outs (KFO) Side bilateral Equipment Used added to HEP with HOs Reps/Minutes 1. 20 AP reps 2-3. hold 30 sec with breath Comments cued slow breath for ribcage mobility support back relaxation Pelvic realignment exercises Supine Exercise Name HEP reviewed Side bilateral Reps/Minutes 5 reps, 3 sec hold all exercises in order Comments Feet together ball squeeze iso , knee opp ankle iso, thigh press down iso Manual Therapy Treatment Consent Patient gave verbal consent for manual Yes treatment Other Other Manual Treatments Pt positional release prone with 2 pillows under pelvis and 1 pillow under ankles: gentle STMs to Lumbar ES, QL, superior glut max and light cupping glides over low back scar, gentle caudal pelvic lumbar traction glide with improved softening and response decreased back tension. Pt reported might get silcone cups for self mobility of scar. Next tx assess abdominal scar mobility . Self-Care/Home Management Treatment Education Patient Education Body Mechanics,Pain Management ,Posture,Safety Other Education Time spent education on use of pillows hooklying under upper thigh and calf (if wish) comfort, SL pillows between BLEs, behind back vs front between BUEs, under head proper height neutral spinal alignment and under lateral ribcage if needed for comfort spinal alignment with provided HOs for set up support, verbalized understanding and response comfort during PT. PT-OP-T Assessment and Plan Start: 01/22/25 15:53 Freq: Status: Active Protocol: Document 02/01/25 07:32 SP (Rec: 02/01/25 08:18 SP [id number]) Physical Therapy Assessment Goals 4 Impairment Inability to walk on the beach d/t fear of instability Impairment . Skilled Nursing Goal (LTG) Pt will perform WNLs on FGA to allow return to beach walking . LTG Duration 8 weeks 3 Impairment Lack of HEP Impairment . Skilled Nursing Goal (LTG) Pt will perform progressive HEP with I including alignment , gentle flexibility, core and LE strengthening and balance exercises to improve pain and mobility. LTG Duration 8 weeks 2 Impairment Inability to walk 30 minutes on treadmill greater than speed 3 Impairment . Short Term Goal (STG) . STG Duration . Skilled Nursing Goal (LTG) Pt will gait train at least 1614 feet in 6 minutes to improve community ambulation and treadmill walking for exercise. LTG Duration 8 weeks 1 Impairment Oswestry reflects 38% impairment Impairment . Chain Repairer Goal (LTG) Pt will present with Oswestry score reflecting no more than 15% impairment to improve pain and quality of life. LTG Duration 8 weeks Assessment Summary Assessment Pt responded well to gentle STMs. Good response to review pelvic alignment HEP awaiting toggle to keep ball inflated. Progressed hip flexibility with added stretching with good response this feels really good on my hip and back , cued for slwo breath to support ribcage and back relaxation. Education for spinal and hip alignment use pillow propping for sleeping supine/SL with HO support. Pt reported felt pretty before leaving today. Physical Therapy Plan Frequency and Duration Frequency of Treatment 2x/Week Duration of treatment (weeks) 8 Plan of Care Start Date 01/29/25 Plan of Care End Date 03/31/25 Therapeutic Interventions Therapeutic Interventions Balance Training,Canalithic Repositioning,Coordination Training,Gait Training,Home Exercise Program,Joint Mobilizations,Manual Therapy, Neuromuscular Re-education, Patient/Caregiver Education, Self-Care/Home Management,Soft Tissue Mobilization,Taping, Therapeutic Activities, Therapeutic Exercises Modalities Cold Pack/Ice Massage,Electric Stimulation,Hot Packs, Ultrasound Next Visit Focus/Plan Next Note Type Treatment Note Next Visit Plan Review pelvic realignment exercises, stretching hip rotators, hamstrings, next add hip flexors and calves. Manual assessment and work 6MWT and FGA, progress balance training over terrains to prepare for walking on the beach Progress to core and LE strengthening, progress to squating activities so she can manage cat box, feeding dog and cats
--- NOTE | 2025-02-05 08:13 | PT.OTN ---
Current Diagnoses Other acute postprocedural pain (02/05/25) Low back pain, unspecified (02/05/25) Physical Therapy Treatment Note PT-OP-A Visit Information Start: 01/22/25 15:53 Freq: Status: Active Protocol: Document 02/05/25 07:31 SP (Rec: 02/05/25 08:17 SP [id number]) Out-Patient Physical Therapy Visit Information Visit Information Visit Type Treatment Note Visit Note 01/03 before KX Visit Start Time 07:31 Visit Stop Time 08:13 Visit Number 3 Number of INFRASTRUCTURE DEVELOPER Visits 2 Evaluation Information Evaluation Date 01/29/25 Precautions Precautions History of UT and stents, back precautions until 02/19/25 PT-OP-B Current Condition Start: 01/22/25 15:53 Freq: Status: Active Protocol: Document 01/29/25 07:27 MB (Rec: 01/29/25 08:12 MB [id number]) Current Condition History of Current Condition Onset Date 11/20/24 Current Complaints Pt reports impatience for restrictions to be lifted History of Current Condition Pt underwent L5-1 fusion . She has no BLT until . Pt would like to get back to treadmill for 30 minutes without having to stop. Pt would like to get back to walking on the beach but is not doing so now d/t the unevenness. She would like to get back to picking up dog bowls off the floor and feed the cats. 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 She is sleeping okay. She just found out that her thyroid is messed up. She just started synthroid. PMH includes heart attack s/p stenting, BiPaP at night for RUBENS, several hand surgeries from tendon issues, B partial TKRs, right ovary removed, B lumpectomies (benign). Treatment Goals Patient/Caregiver Goals Walking 30 minutes on treadmill, walking on the beach, feeding the cats and picking up the dog bowls. PT-OP-C Subjective Start: 01/22/25 15:53 Freq: Status: Active Protocol: Document 02/05/25 07:31 SP (Rec: 02/05/25 08:17 SP [id number]) OP-PT Subjective Patient Comments Patient Comments Pt reports thinks HEP helping, compliant. Not having as much pain maybe 1/10 but hasn't made much time consuming meals just small ones but usually that hurts standing still chopping. Coming in today ok. PT-OP-D Balance Start: 01/22/25 15:53 Freq: Status: Active Protocol: Document 01/29/25 07:27 MB (Rec: 01/29/25 08:12 MB [id number]) OP-PT Balance Assessment Standing Balance Standing Balance Comments Standing posture with shoes off: left greater than right rounded shoulders, forward head, Dowager's hump and then decreased kyphosis and then increased kyphosis and mild right convexity mid thoracic spine, change of curve lower thoracic spine, left iliac crest higher than the right. Anterior and posterior surgical scars, overpronation left ankle, left arm rests more anterior than the right. Rollins Fall Scale Copyright Permission PT-OP-G Mobility & Gait Start: 01/22/25 15:53 Freq: Status: Active Protocol: Document 01/29/25 07:27 MB (Rec: 01/29/25 08:12 MB [id number]) OP Mobility Evaluation Bed Mobility Rolling Log roll today on and off plinth OP Gait Assessment Comments Gait Comments Gait with shoes off: very stiff shoulders and decreased arm swing, forward and rounded shoulders PT-OP-J Posture/Palpation/Skin Start: 01/22/25 15:53 Freq: Status: Active Protocol: Document 01/29/25 07:27 MB (Rec: 01/29/25 09:02 MB [id number]) Posture Evaluation Comments Posture Comments Standing posture with shoes off: left greater than right rounded shoulders, forward head, Dowager's hump and then decreased kyphosis and then increased kyphosis and mild right convexity mid thoracic spine, change of curve lower thoracic spine, left iliac crest higher than the right. Anterior and posterior surgical scars, overpronation left ankle, left arm rests more anterior than the right. PT-OP-M Strength Start: 01/22/25 15:53 Freq: Status: Active Protocol: Document 01/29/25 07:27 MB (Rec: 01/29/25 08:12 MB [id number]) Hip Strength Hip Manual Muscle Testing Left Flexion (L2) 5 Normal Extension (S1) 4+ Good+ Abduction 5 Normal Right Flexion (L2) 5 Normal Extension (S1) 4+ Good+ Abduction 5 Normal Comments MMT in supine for all LE muscles Knee Strength Knee Manual Muscle Testing Left Flexion (S2) 5 Normal Extension (L3) 5 Normal Right Flexion (S2) 5 Normal Extension (L3) 5 Normal Ankle/Foot Strength Ankle and Foot Manual Muscle Testing Left Dorsiflexion (L4) 5 Normal Right Dorsiflexion (L4) 5 Normal Toe Strength Toe Manual Muscle Testing Left Great Toe Extension 5 Normal Right Great Toe Extension 4+ Good+ PT-OP-Q Treatments Start: 01/22/25 15:53 Freq: Status: Active Protocol: Document 02/05/25 07:31 SP (Rec: 02/05/25 08:17 SP [id number]) Therapeutic Exercises Supine Exercises Cleve stretch Supine Exercise Name added to HEP /c HO Side bilateral Reps/Minutes 30 sec each LE Comments cued opp KTC found best stretch response Stretching Supine Exercise Name Rev:1. HS /c AP 2. piriformis (IR opp knee bent) 3. Adductor stretch Side bilateral Reps/Minutes 1. 20 AP reps 2-3. hold 30 sec with breath Comments cued slow breath for ribcage mobility support back relaxation Pelvic realignment exercises Supine Exercise Name HEP reviewed Side bilateral Reps/Minutes 5 reps, 3 sec hold all exercises in order Comments Feet together ball squeeze iso , knee opp ankle iso, thigh press down iso Standing Exercises Calf stretching Standing Exercise Name added to HEP /c HO: Gastroc & Soleus Side bilateral Reps/Minutes 30 sec each Comments knee extended and bent Gait Training Gait Activity 6MWT Device Used 0 Distance/Duration 1324 ft Self-Care/Home Management Treatment Education Patient Education Body Mechanics,Pain Management ,Posture,Safety Other Education Time spent instruction and feedback body mechanics loading/unloading knowledge engineer/ washer/dryer is using tongs, squat load front cues can use 1/2 kneeling and wt shift to reach back dryer and other UE support on rim dryer for back straight support. ALso cues for mindfulness of weight in grocery bags and lifting with more trips to decreased strain on back. Good feedback response and has already incorporated. PT-OP-T Assessment and Plan Start: 01/22/25 15:53 Freq: Status: Active Protocol: Document 02/05/25 07:31 SP (Rec: 02/05/25 08:17 SP [id number]) Physical Therapy Assessment Goals 4 Impairment Inability to walk on the beach d/t fear of instability Impairment . Mechanic Field Service Goal (LTG) Pt will perform WNLs on FGA to allow return to beach walking . LTG Duration 8 weeks 3 Impairment Lack of HEP Impairment . Mechanic Field Service Goal (LTG) Pt will perform progressive HEP with I including alignment , gentle flexibility, core and LE strengthening and balance exercises to improve pain and mobility. LTG Duration 8 weeks 2 Impairment Inability to walk 30 minutes on treadmill greater than speed 3 Impairment . Short Term Goal (STG) . STG Duration . Detention Goal (LTG) Pt will gait train at least 1614 feet in 6 minutes to improve community ambulation and treadmill walking for exercise. 02/05/25: 1324 ft in 6 min, no reports of pain. LTG Duration 8 weeks updated 02/05/25 1 Impairment Oswestry reflects 38% impairment Impairment . Mechanic Field Service Goal (LTG) Pt will present with Oswestry score reflecting no more than 15% impairment to improve pain and quality of life. LTG Duration 8 weeks Assessment Summary Assessment Pt Physical Therapy Plan Frequency and Duration Frequency of Treatment 2x/Week Duration of treatment (weeks) 8 Plan of Care Start Date 01/29/25 Plan of Care End Date 03/31/25 Therapeutic Interventions Therapeutic Interventions Balance Training,Canalithic Repositioning,Coordination Training,Gait Training,Home Exercise Program,Joint Mobilizations,Manual Therapy, Neuromuscular Re-education, Patient/Caregiver Education, Self-Care/Home Management,Soft Tissue Mobilization,Taping, Therapeutic Activities, Therapeutic Exercises Modalities Cold Pack/Ice Massage,Electric Stimulation,Hot Packs, Ultrasound Next Visit Focus/Plan Next Note Type Treatment Note Next Visit Plan Review pelvic realignment exercises, stretching hip rotators, hamstrings, next add hip flexors and calves. Manual assessment and work 6MWT and FGA, progress balance training over terrains to prepare for walking on the beach Progress to core and LE strengthening, continue review squating activities with proper body mechanics so she can manage cat box, feeding dog and cats, load knowledge engineer and washer/dryer.
--- NOTE | 2025-02-07 08:13 | PT.OTN ---
Current Diagnoses Other acute postprocedural pain (02/07/25) Low back pain, unspecified (02/07/25) Physical Therapy Treatment Note PT-OP-A Visit Information Start: 01/22/25 15:53 Freq: Status: Active Protocol: Document 02/07/25 07:29 MB (Rec: 02/07/25 08:13 MB [id number]) Out-Patient Physical Therapy Visit Information Visit Information Visit Type Treatment Note Visit Note 03/03 before KX Visit Start Time 07:29 Visit Stop Time 08:09 Visit Number 4 Number of ABRASIVE GRADER Visits 0 Evaluation Information Evaluation Date 01/29/25 Precautions Precautions History of MA and stents, back precautions until 02/19/25 PT-OP-B Current Condition Start: 01/22/25 15:53 Freq: Status: Active Protocol: Document 01/29/25 07:27 MB (Rec: 01/29/25 08:12 MB [id number]) Current Condition History of Current Condition Onset Date 11/20/24 Current Complaints Pt reports impatience for restrictions to be lifted History of Current Condition Pt underwent L5-1 fusion . She has no BLT until . Pt would like to get back to treadmill for 30 minutes without having to stop. Pt would like to get back to walking on the beach but is not doing so now d/t the unevenness. She would like to get back to picking up dog bowls off the floor and feed the cats. 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 She is sleeping okay. She just found out that her thyroid is messed up. She just started synthroid. PMH includes heart attack s/p stenting, BiPaP at night for RUBENS, several hand surgeries from tendon issues, B partial TKRs, right ovary removed, B lumpectomies (benign). Treatment Goals Patient/Caregiver Goals Walking 30 minutes on treadmill, walking on the beach, feeding the cats and picking up the dog bowls. PT-OP-C Subjective Start: 01/22/25 15:53 Freq: Status: Active Protocol: Document 02/07/25 07:29 MB (Rec: 02/07/25 08:13 MB [id number]) OP-PT Subjective Patient Comments Patient Comments Pt reports her back gets tired . She is not lying down as much. She is not taking naps as much. PT-OP-D Balance Start: 01/22/25 15:53 Freq: Status: Active Protocol: Document 01/29/25 07:27 MB (Rec: 01/29/25 08:12 MB [id number]) OP-PT Balance Assessment Standing Balance Standing Balance Comments Standing posture with shoes off: left greater than right rounded shoulders, forward head, Dowager's hump and then decreased kyphosis and then increased kyphosis and mild right convexity mid thoracic spine, change of curve lower thoracic spine, left iliac crest higher than the right. Anterior and posterior surgical scars, overpronation left ankle, left arm rests more anterior than the right. Rollins Fall Scale Copyright Permission PT-OP-G Mobility & Gait Start: 01/22/25 15:53 Freq: Status: Active Protocol: Document 01/29/25 07:27 MB (Rec: 01/29/25 08:12 MB [id number]) OP Mobility Evaluation Bed Mobility Rolling Log roll today on and off plinth OP Gait Assessment Comments Gait Comments Gait with shoes off: very stiff shoulders and decreased arm swing, forward and rounded shoulders PT-OP-J Posture/Palpation/Skin Start: 01/22/25 15:53 Freq: Status: Active Protocol: Document 01/29/25 07:27 MB (Rec: 01/29/25 09:02 MB [id number]) Posture Evaluation Comments Posture Comments Standing posture with shoes off: left greater than right rounded shoulders, forward head, Dowager's hump and then decreased kyphosis and then increased kyphosis and mild right convexity mid thoracic spine, change of curve lower thoracic spine, left iliac crest higher than the right. Anterior and posterior surgical scars, overpronation left ankle, left arm rests more anterior than the right. PT-OP-M Strength Start: 01/22/25 15:53 Freq: Status: Active Protocol: Document 01/29/25 07:27 MB (Rec: 01/29/25 08:12 MB [id number]) Hip Strength Hip Manual Muscle Testing Left Flexion (L2) 5 Normal Extension (S1) 4+ Good+ Abduction 5 Normal Right Flexion (L2) 5 Normal Extension (S1) 4+ Good+ Abduction 5 Normal Comments MMT in supine for all LE muscles Knee Strength Knee Manual Muscle Testing Left Flexion (S2) 5 Normal Extension (L3) 5 Normal Right Flexion (S2) 5 Normal Extension (L3) 5 Normal Ankle/Foot Strength Ankle and Foot Manual Muscle Testing Left Dorsiflexion (L4) 5 Normal Right Dorsiflexion (L4) 5 Normal Toe Strength Toe Manual Muscle Testing Left Great Toe Extension 5 Normal Right Great Toe Extension 4+ Good+ PT-OP-Q Treatments Start: 01/22/25 15:53 Freq: Status: Active Protocol: Document 02/07/25 07:29 MB (Rec: 02/07/25 08:13 MB [id number]) Manual Therapy Treatment Consent Patient gave verbal consent for manual Yes treatment Other Other Manual Treatments Pt supine with head and legs supported: STM B vastus lateralis, calves, hamstrings, rectus femoris, hip flexors, paraspinals and positional release ribs and most tension in PFs and vastus lateralis, also worked on B plantar fascia, increased tension right ribs Self-Care/Home Management Treatment Education Other Education Worked on gentle pubic tip to navel, gentle abdominal drawing in/TA engagement to perform with walking, stretching, activities PT-OP-T Assessment and Plan Start: 01/22/25 15:53 Freq: Status: Active Protocol: Document 02/07/25 07:29 MB (Rec: 02/07/25 08:13 MB [id number]) Physical Therapy Assessment Goals 4 Impairment Inability to walk on the beach d/t fear of instability Impairment . Senior Care Goal (LTG) Pt will perform WNLs on FGA to allow return to beach walking . LTG Duration 8 weeks 3 Impairment Lack of HEP Impairment . Senior Care Goal (LTG) Pt will perform progressive HEP with I including alignment , gentle flexibility, core and LE strengthening and balance exercises to improve pain and mobility. LTG Duration 8 weeks 2 Impairment Inability to walk 30 minutes on treadmill greater than speed 3 Impairment . Short Term Goal (STG) . STG Duration . Senior Care Goal (LTG) Pt will gait train at least 1614 feet in 6 minutes to improve community ambulation and treadmill walking for exercise. 02/05/25: 1324 ft in 6 min, no reports of pain. LTG Duration 8 weeks updated 02/05/25 1 Impairment Oswestry reflects 38% impairment Impairment . Records Custodian Goal (LTG) Pt will present with Oswestry score reflecting no more than 15% impairment to improve pain and quality of life. LTG Duration 8 weeks Assessment Summary Assessment Good tolerance to manual work and initiated pubic bone tip to navel today, TA engagement. Physical Therapy Plan Frequency and Duration Frequency of Treatment 2x/Week Duration of treatment (weeks) 8 Plan of Care Start Date 01/29/25 Plan of Care End Date 03/31/25 Therapeutic Interventions Therapeutic Interventions Balance Training,Canalithic Repositioning,Coordination Training,Gait Training,Home Exercise Program,Joint Mobilizations,Manual Therapy, Neuromuscular Re-education, Patient/Caregiver Education, Self-Care/Home Management,Soft Tissue Mobilization,Taping, Therapeutic Activities, Therapeutic Exercises Modalities Cold Pack/Ice Massage,Electric Stimulation,Hot Packs, Ultrasound Next Visit Focus/Plan Next Note Type Treatment Note Next Visit Plan 6MWT and FGA, progress balance training over terrains to prepare for walking on the beach Progress to core and LE strengthening, continue review squating activities with proper body mechanics so she can manage cat box, feeding dog and cats, load spot remover and washer/dryer. Con't manual work as needed.
--- NOTE | 2025-02-13 10:31 | PT.OTN ---
Current Diagnoses Other acute postprocedural pain (02/13/25) Low back pain, unspecified (02/13/25) Physical Therapy Treatment Note PT-OP-A Visit Information Start: 01/22/25 15:53 Freq: Status: Active Protocol: Document 02/13/25 09:51 SP (Rec: 02/13/25 10:41 SP [id number]) Out-Patient Physical Therapy Visit Information Visit Information Visit Type Treatment Note Visit Note 04/02 before KX PN by 02/26/25 appt. Visit Start Time 09:51 Visit Stop Time 10:31 Visit Number 5 (PN by 02/26/25 appt) Number of SALES AND MARKETING ANALYST Visits 1 Precautions Precautions History of DE and stents, back precautions released 02/13/25. PT-OP-B Current Condition Start: 01/22/25 15:53 Freq: Status: Active Protocol: Document 01/29/25 07:27 MB (Rec: 01/29/25 08:12 MB [id number]) Current Condition History of Current Condition Onset Date 11/20/24 Current Complaints Pt reports impatience for restrictions to be lifted History of Current Condition Pt underwent L5-1 fusion . She has no BLT until . Pt would like to get back to treadmill for 30 minutes without having to stop. Pt would like to get back to walking on the beach but is not doing so now d/t the unevenness. She would like to get back to picking up dog bowls off the floor and feed the cats. 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 She is sleeping okay. She just found out that her thyroid is messed up. She just started synthroid. PMH includes heart attack s/p stenting, BiPaP at night for RUBENS, several hand surgeries from tendon issues, B partial TKRs, right ovary removed, B lumpectomies (benign). Treatment Goals Patient/Caregiver Goals Walking 30 minutes on treadmill, walking on the beach, feeding the cats and picking up the dog bowls. PT-OP-C Subjective Start: 01/22/25 15:53 Freq: Status: Active Protocol: Document 02/13/25 09:51 SP (Rec: 02/13/25 10:41 SP [id number]) OP-PT Subjective Patient Comments Patient Comments Pt reports got message back from Neurosurgeon that all precautions lifted so can rotate and progressive lifting weight tolerance, focus ongradual strengthening. Will forward to PT and SALES AND MARKETING ANALYST the email received to upload in her EMR. She is relieved can make her bed now. She reported little sore but felt better after manual last tx. PT-OP-D Balance Start: 01/22/25 15:53 Freq: Status: Active Protocol: Document 01/29/25 07:27 MB (Rec: 01/29/25 08:12 MB [id number]) OP-PT Balance Assessment Standing Balance Standing Balance Comments Standing posture with shoes off: left greater than right rounded shoulders, forward head, Dowager's hump and then decreased kyphosis and then increased kyphosis and mild right convexity mid thoracic spine, change of curve lower thoracic spine, left iliac crest higher than the right. Anterior and posterior surgical scars, overpronation left ankle, left arm rests more anterior than the right. Rollins Fall Scale Copyright Permission PT-OP-G Mobility & Gait Start: 01/22/25 15:53 Freq: Status: Active Protocol: Document 01/29/25 07:27 MB (Rec: 01/29/25 08:12 MB [id number]) OP Mobility Evaluation Bed Mobility Rolling Log roll today on and off plinth OP Gait Assessment Comments Gait Comments Gait with shoes off: very stiff shoulders and decreased arm swing, forward and rounded shoulders PT-OP-J Posture/Palpation/Skin Start: 01/22/25 15:53 Freq: Status: Active Protocol: Document 01/29/25 07:27 MB (Rec: 01/29/25 09:02 MB [id number]) Posture Evaluation Comments Posture Comments Standing posture with shoes off: left greater than right rounded shoulders, forward head, Dowager's hump and then decreased kyphosis and then increased kyphosis and mild right convexity mid thoracic spine, change of curve lower thoracic spine, left iliac crest higher than the right. Anterior and posterior surgical scars, overpronation left ankle, left arm rests more anterior than the right. PT-OP-M Strength Start: 01/22/25 15:53 Freq: Status: Active Protocol: Document 01/29/25 07:27 MB (Rec: 01/29/25 08:12 MB [id number]) Hip Strength Hip Manual Muscle Testing Left Flexion (L2) 5 Normal Extension (S1) 4+ Good+ Abduction 5 Normal Right Flexion (L2) 5 Normal Extension (S1) 4+ Good+ Abduction 5 Normal Comments MMT in supine for all LE muscles Knee Strength Knee Manual Muscle Testing Left Flexion (S2) 5 Normal Extension (L3) 5 Normal Right Flexion (S2) 5 Normal Extension (L3) 5 Normal Ankle/Foot Strength Ankle and Foot Manual Muscle Testing Left Dorsiflexion (L4) 5 Normal Right Dorsiflexion (L4) 5 Normal Toe Strength Toe Manual Muscle Testing Left Great Toe Extension 5 Normal Right Great Toe Extension 4+ Good+ PT-OP-Q Treatments Start: 01/22/25 15:53 Freq: Status: Active Protocol: Document 02/13/25 09:51 SP (Rec: 02/13/25 10:41 SP [id number]) Therapeutic Exercises Supine Exercises Core Progression Supine Exercise Name TA draw in, TA KFO, TA Heel slides, TA LTR, TA March Equipment Used added to HEP with HO Reps/Minutes TA 5 SH x5 reps, 10 each side alternating Comments cued TA level pelvis, slow pacing - good form no pain Gait Training Gait Activity 6MWT Device Used 0 Distance/Duration 6 laps around clinic (1212 ft) Comments not timed, cued arm swing Neuro Re-Education Treatment Balance Activities SLS Equipment L 32 sec, R 39 sec Comments stops due to stance foot tiring Tandem stance Equipment near rail not need touch Reps/Duration 60 sec each foot position Comments R leg front stated little more unsteady. Discussed adding HTs for HEP with Slow head turns. FGA activities Details fwd & bwd with HTs stepping, stairs Reps/Duration 20 ft lengths x5 laps fwd/bwd, stairs 4x4 no UE support Comments slight sways with HTs but improved with laps, good demonstration stairs. PT-OP-T Assessment and Plan Start: 01/22/25 15:53 Freq: Status: Active Protocol: Document 02/13/25 09:51 SP (Rec: 02/13/25 10:41 SP [id number]) Physical Therapy Assessment Goals 4 Impairment Inability to walk on the beach d/t fear of instability Impairment . Intermediate Goal (LTG) Pt will perform WNLs on FGA to allow return to beach walking . LTG Duration 8 weeks 3 Impairment Lack of HEP Impairment . Intermediate Goal (LTG) Pt will perform progressive HEP with I including alignment , gentle flexibility, core and LE strengthening and balance exercises to improve pain and mobility. LTG Duration 8 weeks 2 Impairment Inability to walk 30 minutes on treadmill greater than speed 3 Impairment . Short Term Goal (STG) . STG Duration . General Utility Maintenance Repairer Goal (LTG) Pt will gait train at least 1614 feet in 6 minutes to improve community ambulation and treadmill walking for exercise. 02/05/25: 1324 ft in 6 min, no reports of pain. LTG Duration 8 weeks updated 02/05/25 1 Impairment Oswestry reflects 38% impairment Impairment . Intermediate Goal (LTG) Pt will present with Oswestry score reflecting no more than 15% impairment to improve pain and quality of life. LTG Duration 8 weeks Assessment Summary Assessment Pt cleared with all precautions told can add gentle core progression. Good response to core progression hooklying today pacing and form with use HOs provided today. Assessed Tandem 60 sec and SLS 30 sec each LE with good form. Discussed adding to HEP with slow HTs tandem for challenge near counter, declined HO. Pt reports feels pretty good end tx. Physical Therapy Plan Frequency and Duration Frequency of Treatment 2x/Week Duration of treatment (weeks) 8 Plan of Care Start Date 01/29/25 Plan of Care End Date 03/31/25 Therapeutic Interventions Therapeutic Interventions Balance Training,Canalithic Repositioning,Coordination Training,Gait Training,Home Exercise Program,Joint Mobilizations,Manual Therapy, Neuromuscular Re-education, Patient/Caregiver Education, Self-Care/Home Management,Soft Tissue Mobilization,Taping, Therapeutic Activities, Therapeutic Exercises Modalities Cold Pack/Ice Massage,Electric Stimulation,Hot Packs, Ultrasound Next Visit Focus/Plan Next Note Type Treatment Note Next Visit Plan Review core progression added last tx. POC: 6MWT and FGA, progress balance training over terrains to prepare for walking on the beach Progress to core and LE strengthening, continue review squating activities with proper body mechanics so she can manage cat box, feeding dog and cats, load loan officer and washer/dryer. Con't manual work as needed.
--- NOTE | 2025-02-21 15:14 | PT.OTN ---
Current Diagnoses Other acute postprocedural pain (02/21/25) Low back pain, unspecified (02/21/25) Physical Therapy Treatment Note PT-OP-A Visit Information Start: 01/22/25 15:53 Freq: Status: Active Protocol: Document 02/21/25 14:34 SP (Rec: 02/21/25 15:38 SP Laptop) Out-Patient Physical Therapy Visit Information Visit Information Visit Type Treatment Note Visit Note 05/03 before KX PN by 02/26/25 appt. Visit Start Time 14:34 Visit Stop Time 15:14 Visit Number 6 (PN by 02/26/25 appt) Number of SMOKING PIPES CLEANER Visits 2 Evaluation Information Evaluation Date 01/29/25 Precautions Precautions History of [place] and stents, back precautions released 02/13/25. PT-OP-B Current Condition Start: 01/22/25 15:53 Freq: Status: Active Protocol: Document 01/29/25 07:27 MB (Rec: 01/29/25 08:12 MB [id number]) Current Condition History of Current Condition Onset Date 11/20/24 Current Complaints Pt reports impatience for restrictions to be lifted History of Current Condition Pt underwent L5-1 fusion . She has no BLT until . Pt would like to get back to treadmill for 30 minutes without having to stop. Pt would like to get back to walking on the beach but is not doing so now d/t the unevenness. She would like to get back to picking up dog bowls off the floor and feed the cats. 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 She is sleeping okay. She just found out that her thyroid is messed up. She just started synthroid. PMH includes heart attack s/p stenting, BiPaP at night for RUBENS, several hand surgeries from tendon issues, B partial TKRs, right ovary removed, B lumpectomies (benign). Treatment Goals Patient/Caregiver Goals Walking 30 minutes on treadmill, walking on the beach, feeding the cats and picking up the dog bowls. PT-OP-C Subjective Start: 01/22/25 15:53 Freq: Status: Active Protocol: Document 02/21/25 14:34 SP (Rec: 02/21/25 15:38 SP Laptop) OP-PT Subjective Patient Comments Patient Comments She reports is able pick items off floor without grabber support. She did well with added core progression. She is walking outside 1/4-1/2 mile goal to go down/up incline road to pickle ball court while walking dog. She is able to get items out of dryer without grabber now. She was told last week cleared for bending and able to lift to tolerance, no restrictions gradual increase. She thinks recently carrying approx grocery bag 15 lbs with no issues. PT-OP-D Balance Start: 01/22/25 15:53 Freq: Status: Active Protocol: Document 01/29/25 07:27 MB (Rec: 01/29/25 08:12 MB [id number]) OP-PT Balance Assessment Standing Balance Standing Balance Comments Standing posture with shoes off: left greater than right rounded shoulders, forward head, Dowager's hump and then decreased kyphosis and then increased kyphosis and mild right convexity mid thoracic spine, change of curve lower thoracic spine, left iliac crest higher than the right. Anterior and posterior surgical scars, overpronation left ankle, left arm rests more anterior than the right. Rollins Fall Scale Copyright Permission PT-OP-G Mobility & Gait Start: 01/22/25 15:53 Freq: Status: Active Protocol: Document 01/29/25 07:27 MB (Rec: 01/29/25 08:12 MB [id number]) OP Mobility Evaluation Bed Mobility Rolling Log roll today on and off plinth OP Gait Assessment Comments Gait Comments Gait with shoes off: very stiff shoulders and decreased arm swing, forward and rounded shoulders PT-OP-J Posture/Palpation/Skin Start: 01/22/25 15:53 Freq: Status: Active Protocol: Document 01/29/25 07:27 MB (Rec: 01/29/25 09:02 MB [id number]) Posture Evaluation Comments Posture Comments Standing posture with shoes off: left greater than right rounded shoulders, forward head, Dowager's hump and then decreased kyphosis and then increased kyphosis and mild right convexity mid thoracic spine, change of curve lower thoracic spine, left iliac crest higher than the right. Anterior and posterior surgical scars, overpronation left ankle, left arm rests more anterior than the right. PT-OP-M Strength Start: 01/22/25 15:53 Freq: Status: Active Protocol: Document 01/29/25 07:27 MB (Rec: 01/29/25 08:12 MB [id number]) Hip Strength Hip Manual Muscle Testing Left Flexion (L2) 5 Normal Extension (S1) 4+ Good+ Abduction 5 Normal Right Flexion (L2) 5 Normal Extension (S1) 4+ Good+ Abduction 5 Normal Comments MMT in supine for all LE muscles Knee Strength Knee Manual Muscle Testing Left Flexion (S2) 5 Normal Extension (L3) 5 Normal Right Flexion (S2) 5 Normal Extension (L3) 5 Normal Ankle/Foot Strength Ankle and Foot Manual Muscle Testing Left Dorsiflexion (L4) 5 Normal Right Dorsiflexion (L4) 5 Normal Toe Strength Toe Manual Muscle Testing Left Great Toe Extension 5 Normal Right Great Toe Extension 4+ Good+ PT-OP-Q Treatments Start: 01/22/25 15:53 Freq: Status: Active Protocol: Document 02/21/25 14:34 SP (Rec: 02/21/25 15:38 SP Laptop) Therapeutic Exercises Supine Exercises Core Progression Supine Exercise Name TA draw in, TA KFO, TA Heel slides, TA LTR, TA March ( sequence DL lift) Side bilateral Resistance *good progress sequencial DL march. Equipment Used reviewed Reps/Minutes TA 60 sec, 10 each side alternating Comments Good level pelvis, slow pacing , states does take concentration TA & breath Neuro Re-Education Treatment Balance Activities SLS Details Added OTAGO HO Equipment L 38s, R 30s Comments before tires Tandem stance Details Added OTAGO HO Equipment near rail not need touch Reps/Duration 60 sec each foot position Comments L leg front stated little more unsteady, reverse last tx. Trialed HTs Slow, good safe challenge. FGA activities Details fwd & bwd with HTs stepping, OTAGO tandem walking fwd/bwd, stairs (not 02/21) Reps/Duration 50 fwd/20 ft bwd lengths x4 laps, no UE support Comments Good no UE contact fwd/bwd, added HTs slight sways but improved with laps and cues for elongated posture and TA. Cued arm swing. PT-OP-T Assessment and Plan Start: 01/22/25 15:53 Freq: Status: Active Protocol: Document 02/21/25 14:34 SP (Rec: 02/21/25 15:38 SP Laptop) Physical Therapy Assessment Goals 4 Impairment Inability to walk on the beach d/t fear of instability Impairment . Tip Mender Goal (LTG) Pt will perform WNLs on FGA to allow return to beach walking . LTG Duration 8 weeks 3 Impairment Lack of HEP Impairment . Senior Living Goal (LTG) Pt will perform progressive HEP with I including alignment , gentle flexibility, core and LE strengthening and balance exercises to improve pain and mobility. 02/21/25: added core progression , tandem, SLS and fwd/bwd tandem walking with OTAGO HO. LTG Duration 8 weeks progresssion 02/21/25 2 Impairment Inability to walk 30 minutes on treadmill greater than speed 3 Impairment . Short Term Goal (STG) . STG Duration . Tip Mender Goal (LTG) Pt will gait train at least 1614 feet in 6 minutes to improve community ambulation and treadmill walking for exercise. 02/05/25: 1324 ft in 6 min, no reports of pain. LTG Duration 8 weeks updated 02/05/25 1 Impairment Oswestry reflects 38% impairment Impairment . Tip Mender Goal (LTG) Pt will present with Oswestry score reflecting no more than 15% impairment to improve pain and quality of life. LTG Duration 8 weeks Assessment Summary Assessment Pt improved core engagement during core progression review . Cues for TA draw in and breath reports still a little challenge and need to focus. Was able to progress to TA sequencial january due to SL was to easy. Good progression to dynamic OTAGO fwd/bwd tandem walking to HEP and stationary stance started HT trials with improved TA and cues for using sight to look at object in distance for stability support . She would benefit from progression in uneven surfances to return to beach walking and maybe metronome for endurance outdoor walking. Physical Therapy Plan Frequency and Duration Frequency of Treatment 2x/Week Duration of treatment (weeks) 8 Plan of Care Start Date 01/29/25 Plan of Care End Date 03/31/25 Therapeutic Interventions Therapeutic Interventions Balance Training,Canalithic Repositioning,Coordination Training,Gait Training,Home Exercise Program,Joint Mobilizations,Manual Therapy, Neuromuscular Re-education, Patient/Caregiver Education, Self-Care/Home Management,Soft Tissue Mobilization,Taping, Therapeutic Activities, Therapeutic Exercises Modalities Cold Pack/Ice Massage,Electric Stimulation,Hot Packs, Ultrasound Next Visit Focus/Plan Next Note Type Progress Note Next Visit Plan PN next tx 02/26/25. Check if need visits into March, provided opportunity to schedule at this time, unsure need. Review core progression as needed and stationary bal, next uneven surface and maybe use metronome gait. 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 Con't manual work as needed.
--- NOTE | 2025-02-26 08:10 | PT.OTN ---
Current Diagnoses Other acute postprocedural pain (02/26/25) Low back pain, unspecified (02/26/25) Physical Therapy Treatment Note PT-OP-A Visit Information Start: 01/22/25 15:53 Freq: Status: Active Protocol: Document 02/26/25 07:30 MB (Rec: 02/26/25 08:09 MB Desktop) Out-Patient Physical Therapy Visit Information Visit Information Visit Type Progress Note Visit Note 06/02 before KX, pt will d/c before needing modifier Visit Start Time 07:30 Visit Stop Time 08:10 Visit Number 7 Number of REPORT MANAGER Visits 0 Evaluation Information Evaluation Date 01/29/25 Precautions Precautions History of [place] and stents, back precautions released 02/13/25. PT-OP-B Current Condition Start: 01/22/25 15:53 Freq: Status: Active Protocol: Document 01/29/25 07:27 MB (Rec: 01/29/25 08:12 MB [id number]) Current Condition History of Current Condition Onset Date 11/20/24 Current Complaints Pt reports impatience for restrictions to be lifted History of Current Condition Pt underwent L5-1 fusion . She has no BLT until . Pt would like to get back to treadmill for 30 minutes without having to stop. Pt would like to get back to walking on the beach but is not doing so now d/t the unevenness. She would like to get back to picking up dog bowls off the floor and feed the cats. 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 She is sleeping okay. She just found out that her thyroid is messed up. She just started synthroid. PMH includes heart attack s/p stenting, BiPaP at night for RUBENS, several hand surgeries from tendon issues, B partial TKRs, right ovary removed, B lumpectomies (benign). Treatment Goals Patient/Caregiver Goals Walking 30 minutes on treadmill, walking on the beach, feeding the cats and picking up the dog bowls. PT-OP-C Subjective Start: 01/22/25 15:53 Freq: Status: Active Protocol: Document 02/26/25 07:30 MB (Rec: 02/26/25 08:09 MB Desktop) OP-PT Subjective Patient Comments Patient Comments Pt is doing more at home but she is still not vacuuming. Her is vacuuming and making raised beds. Exercises are going pretty good. PT-OP-D Balance Start: 01/22/25 15:53 Freq: Status: Active Protocol: Document 01/29/25 07:27 MB (Rec: 01/29/25 08:12 MB [id number]) OP-PT Balance Assessment Standing Balance Standing Balance Comments Standing posture with shoes off: left greater than right rounded shoulders, forward head, Dowager's hump and then decreased kyphosis and then increased kyphosis and mild right convexity mid thoracic spine, change of curve lower thoracic spine, left iliac crest higher than the right. Anterior and posterior surgical scars, overpronation left ankle, left arm rests more anterior than the right. Rollins Fall Scale Copyright Permission PT-OP-G Mobility & Gait Start: 01/22/25 15:53 Freq: Status: Active Protocol: Document 01/29/25 07:27 MB (Rec: 01/29/25 08:12 MB [id number]) OP Mobility Evaluation Bed Mobility Rolling Log roll today on and off plinth OP Gait Assessment Comments Gait Comments Gait with shoes off: very stiff shoulders and decreased arm swing, forward and rounded shoulders PT-OP-J Posture/Palpation/Skin Start: 01/22/25 15:53 Freq: Status: Active Protocol: Document 01/29/25 07:27 MB (Rec: 01/29/25 09:02 MB [id number]) Posture Evaluation Comments Posture Comments Standing posture with shoes off: left greater than right rounded shoulders, forward head, Dowager's hump and then decreased kyphosis and then increased kyphosis and mild right convexity mid thoracic spine, change of curve lower thoracic spine, left iliac crest higher than the right. Anterior and posterior surgical scars, overpronation left ankle, left arm rests more anterior than the right. PT-OP-M Strength Start: 01/22/25 15:53 Freq: Status: Active Protocol: Document 01/29/25 07:27 MB (Rec: 01/29/25 08:12 MB [id number]) Hip Strength Hip Manual Muscle Testing Left Flexion (L2) 5 Normal Extension (S1) 4+ Good+ Abduction 5 Normal Right Flexion (L2) 5 Normal Extension (S1) 4+ Good+ Abduction 5 Normal Comments MMT in supine for all LE muscles Knee Strength Knee Manual Muscle Testing Left Flexion (S2) 5 Normal Extension (L3) 5 Normal Right Flexion (S2) 5 Normal Extension (L3) 5 Normal Ankle/Foot Strength Ankle and Foot Manual Muscle Testing Left Dorsiflexion (L4) 5 Normal Right Dorsiflexion (L4) 5 Normal Toe Strength Toe Manual Muscle Testing Left Great Toe Extension 5 Normal Right Great Toe Extension 4+ Good+ PT-OP-Q Treatments Start: 01/22/25 15:53 Freq: Status: Active Protocol: Document 02/26/25 07:30 MB (Rec: 02/26/25 08:09 MB Desktop) Gait Training Gait Activity 6MWT Comments See goals today and pt improves Neuro Re-Education Treatment Balance Activities FGA Comments FGA score is 26/30, normal and may decide to add walking with EC to balance program as walking tandem and tandem backward is already in plan Self-Care/Home Management Treatment Education Patient Education Body Mechanics,Joint Protection,Pain Management, Posture Other Education PT demos proper vacuuming technique including core engagement and stepping forward and pushing vacuum head forward and stepping towards it, machine body behind, initial discussion of body mechanics lifting sewing machine, using machine spring former, mopping, verbal review of plan and exercises PT-OP-T Assessment and Plan Start: 01/22/25 15:53 Freq: Status: Active Protocol: Document 02/26/25 07:30 MB (Rec: 02/26/25 08:09 MB Desktop) Physical Therapy Assessment Goals 4 Impairment Inability to walk on the beach d/t fear of instability Impairment . [facility] Goal (LTG) Pt will perform WNLs on FGA to allow return to beach walking . 02/26/25: FGA score is 26/30, which is normal and pt has most trouble with backwards walking, tandem walking and walking with EC LTG Duration 8 weeks 3 Impairment Lack of HEP Impairment . Ip Architect Goal (LTG) Pt will perform progressive HEP with I including alignment , gentle flexibility, core and LE strengthening and balance exercises to improve pain and mobility. 02/21/25: added core progression , tandem, SLS and fwd/bwd tandem walking with OTAGO HO. 02/26/25: Pt is performing all HEP exercises without trouble LTG Duration 8 weeks 2 Impairment Inability to walk 30 minutes on treadmill greater than speed 3 Impairment . Short Term Goal (STG) . STG Duration . Ip Architect Goal (LTG) Pt will gait train at least 1614 feet in 6 minutes to improve community ambulation and treadmill walking for exercise. 02/05/25: 1324 ft in 6 min, no reports of pain. 02/26/25: Pt has been performing treadmill walking up to 20 minutes and it is going well, pt is progressing. 6MWT: 1585 feet in 6 minutes LTG Duration 8 weeks 1 Impairment Oswestry reflects 38% impairment Impairment . Ip Architect Goal (LTG) Pt will present with Oswestry score reflecting no more than 15% impairment to improve pain and quality of life. 02/26/25: Oswestry score reflects 20% impairment LTG Duration 8 weeks Assessment Summary Assessment Pt is progressing towards all goals. Will con't per plan below. Physical Therapy Plan Frequency and Duration Frequency of Treatment 2x/Week Duration of treatment (weeks) 8 Plan of Care Start Date 01/29/25 Plan of Care End Date 03/31/25 Therapeutic Interventions Therapeutic Interventions Balance Training,Canalithic Repositioning,Coordination Training,Gait Training,Home Exercise Program,Joint Mobilizations,Manual Therapy, Neuromuscular Re-education, Patient/Caregiver Education, Self-Care/Home Management,Soft Tissue Mobilization,Taping, Therapeutic Activities, Therapeutic Exercises Modalities Cold Pack/Ice Massage,Electric Stimulation,Hot Packs, Ultrasound Next Visit Focus/Plan Next Note Type Treatment Note Next Visit Plan Review and progress exercises including balance and leg strengthening with [place], add walking with eyes closed, pt would like to work on picking up heavier objects, up to 35 lb and sewing machine is 18 lbs Does not need to schedule more appointments
--- NOTE | 2025-03-02 08:13 | PT.OTN ---
Current Diagnoses Other acute postprocedural pain (03/02/25) Low back pain, unspecified (03/02/25) Physical Therapy Treatment Note PT-OP-A Visit Information Start: 01/22/25 15:53 Freq: Status: Active Protocol: Document 03/02/25 07:33 SP (Rec: 03/02/25 08:15 SP Laptop) Out-Patient Physical Therapy Visit Information Visit Information Visit Type Treatment Note Visit Note 06/02 before KX, pt will d/c before needing modifier DIAMOND GRINDER Olga observed tx with permission of pt while under direction supervision of CHAD Siddiqi Visit Start Time 07:33 Visit Stop Time 08:13 Visit Number 8 Number of DIAMOND GRINDER Visits 1 Evaluation Information Evaluation Date 01/29/25 Precautions Precautions History of OK and stents, back precautions released 02/13/25. PT-OP-B Current Condition Start: 01/22/25 15:53 Freq: Status: Active Protocol: Document 01/29/25 07:27 MB (Rec: 01/29/25 08:12 MB [id number]) Current Condition History of Current Condition Onset Date 11/20/24 Current Complaints Pt reports impatience for restrictions to be lifted History of Current Condition Pt underwent L5-1 fusion . She has no BLT until . Pt would like to get back to treadmill for 30 minutes without having to stop. Pt would like to get back to walking on the beach but is not doing so now d/t the unevenness. She would like to get back to picking up dog bowls off the floor and feed the cats. 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 She is sleeping okay. She just found out that her thyroid is messed up. She just started synthroid. PMH includes heart attack s/p stenting, BiPaP at night for RUBENS, several hand surgeries from tendon issues, B partial TKRs, right ovary removed, B lumpectomies (benign). Treatment Goals Patient/Caregiver Goals Walking 30 minutes on treadmill, walking on the beach, feeding the cats and picking up the dog bowls. PT-OP-C Subjective Start: 01/22/25 15:53 Freq: Status: Active Protocol: Document 03/02/25 07:33 SP (Rec: 03/02/25 08:15 SP Laptop) OP-PT Subjective Patient Comments Patient Comments Pt reports just little ache in low back arrival. Compliant with HEP. PT-OP-D Balance Start: 01/22/25 15:53 Freq: Status: Active Protocol: Document 01/29/25 07:27 MB (Rec: 01/29/25 08:12 MB [id number]) OP-PT Balance Assessment Standing Balance Standing Balance Comments Standing posture with shoes off: left greater than right rounded shoulders, forward head, Dowager's hump and then decreased kyphosis and then increased kyphosis and mild right convexity mid thoracic spine, change of curve lower thoracic spine, left iliac crest higher than the right. Anterior and posterior surgical scars, overpronation left ankle, left arm rests more anterior than the right. Rollins Fall Scale Copyright Permission PT-OP-G Mobility & Gait Start: 01/22/25 15:53 Freq: Status: Active Protocol: Document 01/29/25 07:27 MB (Rec: 01/29/25 08:12 MB [id number]) OP Mobility Evaluation Bed Mobility Rolling Log roll today on and off plinth OP Gait Assessment Comments Gait Comments Gait with shoes off: very stiff shoulders and decreased arm swing, forward and rounded shoulders PT-OP-J Posture/Palpation/Skin Start: 01/22/25 15:53 Freq: Status: Active Protocol: Document 01/29/25 07:27 MB (Rec: 01/29/25 09:02 MB [id number]) Posture Evaluation Comments Posture Comments Standing posture with shoes off: left greater than right rounded shoulders, forward head, Dowager's hump and then decreased kyphosis and then increased kyphosis and mild right convexity mid thoracic spine, change of curve lower thoracic spine, left iliac crest higher than the right. Anterior and posterior surgical scars, overpronation left ankle, left arm rests more anterior than the right. PT-OP-M Strength Start: 01/22/25 15:53 Freq: Status: Active Protocol: Document 01/29/25 07:27 MB (Rec: 01/29/25 08:12 MB [id number]) Hip Strength Hip Manual Muscle Testing Left Flexion (L2) 5 Normal Extension (S1) 4+ Good+ Abduction 5 Normal Right Flexion (L2) 5 Normal Extension (S1) 4+ Good+ Abduction 5 Normal Comments MMT in supine for all LE muscles Knee Strength Knee Manual Muscle Testing Left Flexion (S2) 5 Normal Extension (L3) 5 Normal Right Flexion (S2) 5 Normal Extension (L3) 5 Normal Ankle/Foot Strength Ankle and Foot Manual Muscle Testing Left Dorsiflexion (L4) 5 Normal Right Dorsiflexion (L4) 5 Normal Toe Strength Toe Manual Muscle Testing Left Great Toe Extension 5 Normal Right Great Toe Extension 4+ Good+ PT-OP-Q Treatments Start: 01/22/25 15:53 Freq: Status: Active Protocol: Document 03/02/25 07:33 SP (Rec: 03/02/25 08:15 SP Laptop) Therapeutic Exercises Supine Exercises Cleve stretch Supine Exercise Name Reviewing Side bilateral Reps/Minutes 30-60 sec each LE Comments cued opp KTC found best stretch response Pelvic realignment exercises Supine Exercise Name HEP reviewed Side bilateral Reps/Minutes 5 reps, 3 sec hold all exercises in order Comments Feet together ball squeeze iso , knee opp ankle iso, thigh press down iso Sitting Exercises [place] STS Sitting Exercise Name added to HEP to her HO Equipment Used mesh chair Reps/Minutes 10 reps (arms across chest) [place] LAQ Sitting Exercise Name added to HEP to her HO Side bilateral Resistance AROM Equipment Used Mesh chair Reps/Minutes 20 alternating Standing Exercises [place] Heel Raises Standing Exercise Name added to HEP to her HO Side bilateral Resistance AROM Equipment Used contact chair Reps/Minutes 20 [place] Hip Abduction Standing Exercise Name added to HEP to her HO Side bilateral Resistance AROM Equipment Used contact chair Reps/Minutes 20 alternating [place] HS curls Standing Exercise Name added to HEP to her HO Side bilateral Resistance AROM Equipment Used contact chair Reps/Minutes 20 alternating Therapeutic Activity Therapeutic Activity Body Mechanics ADLs Name next Neuro Re-Education Treatment Balance Activities SLS Details Reviewed OTAGO Equipment behind chair Reps/Duration L 10s, R Ls Comments Not as steady today Tandem stance Details Reviewed OTAGO Equipment near rail not need touch Reps/Duration 60 sec each R foot front position, 40 sec L ft front position Comments L leg front stated little more unsteady, reverse last tx. FGA activities Details OTAGO tandem walking fwd/bwd, HTs hallway Reps/Duration 20 ft bwd lengths x4 laps, no UE support, 50 ft x2 laps fwd only Comments Good no UE contact fwd/bwd, added HTs slight sways but improved with laps and cues for elongated posture and TA. Cued arm swing. PT-OP-T Assessment and Plan Start: 01/22/25 15:53 Freq: Status: Active Protocol: Document 03/02/25 07:33 SP (Rec: 03/02/25 08:15 SP Laptop) Physical Therapy Assessment Goals 4 Impairment Inability to walk on the beach d/t fear of instability Impairment . Customer Service Advisor Goal (LTG) Pt will perform WNLs on FGA to allow return to beach walking . 02/26/25: FGA score is 26/30, which is normal and pt has most trouble with backwards walking, tandem walking and walking with EC LTG Duration 8 weeks 3 Impairment Lack of HEP Impairment . Customer Service Advisor Goal (LTG) Pt will perform progressive HEP with I including alignment , gentle flexibility, core and LE strengthening and balance exercises to improve pain and mobility. 02/21/25: added core progression , tandem, SLS and fwd/bwd tandem walking with OTAGO HO. 02/26/25: Pt is performing all HEP exercises without trouble LTG Duration 8 weeks 2 Impairment Inability to walk 30 minutes on treadmill greater than speed 3 Impairment . Short Term Goal (STG) . STG Duration . Customer Service Advisor Goal (LTG) Pt will gait train at least 1614 feet in 6 minutes to improve community ambulation and treadmill walking for exercise. 02/05/25: 1324 ft in 6 min, no reports of pain. 02/26/25: Pt has been performing treadmill walking up to 20 minutes and it is going well, pt is progressing. 6MWT: 1585 feet in 6 minutes LTG Duration 8 weeks 1 Impairment Oswestry reflects 38% impairment Impairment . Customer Service Advisor Goal (LTG) Pt will present with Oswestry score reflecting no more than 15% impairment to improve pain and quality of life. 02/26/25: Oswestry score reflects 20% impairment LTG Duration 8 weeks Assessment Summary Assessment Pt good response to stretching & pelvic realignment beginning of tx for improved flexibility and achiness reduction. Progressed [place] exercises to her HEP today AROM with light contact chair no adverse affects, would benefit from added weight next tx. She had decreased stance time balance portion tandem and SLS, states her L knee not as stable today. She improved not needing finger contact wall during dynamic walking today with improved midline trunk and feet // during HTs with cues ribcage elevation and TA. Pt would benefit from carryover body mechanics with alignment during ADL to allow decreased pain for vacuuming. Physical Therapy Plan Frequency and Duration Frequency of Treatment 2x/Week Duration of treatment (weeks) 8 Plan of Care Start Date 01/29/25 Plan of Care End Date 03/31/25 Therapeutic Interventions Therapeutic Interventions Balance Training,Canalithic Repositioning,Coordination Training,Gait Training,Home Exercise Program,Joint Mobilizations,Manual Therapy, Neuromuscular Re-education, Patient/Caregiver Education, Self-Care/Home Management,Soft Tissue Mobilization,Taping, Therapeutic Activities, Therapeutic Exercises Modalities Cold Pack/Ice Massage,Electric Stimulation,Hot Packs, Ultrasound Next Visit Focus/Plan Next Note Type Treatment Note Next Visit Plan Next: Ask response to added [place] HEP and review with added weights, add walking with eyes closed, work on body mechanics while picking up heavier objects, up to 35 lb and sewing machine is 18 lbs Does not need to schedule more appointments
--- NOTE | 2025-03-05 08:07 | PT.OTN ---
Current Diagnoses Other acute postprocedural pain (03/05/25) Low back pain, unspecified (03/05/25) Physical Therapy Treatment Note PT-OP-A Visit Information Start: 01/22/25 15:53 Freq: Status: Active Protocol: Document 03/05/25 07:25 MB (Rec: 03/05/25 08:06 MB Desktop) Out-Patient Physical Therapy Visit Information Visit Information Visit Type Treatment Note Visit Note 08/03 before KX, pt will d/c before needing modifier Visit Start Time 07:25 Visit Stop Time 08:05 Visit Number 10 Number of DEAD MAIL CHECKER Visits 0 Evaluation Information Evaluation Date 01/29/25 Precautions Precautions History of PA and stents, back precautions released 02/13/25. PT-OP-B Current Condition Start: 01/22/25 15:53 Freq: Status: Active Protocol: Document 01/29/25 07:27 MB (Rec: 01/29/25 08:12 MB [id number]) Current Condition History of Current Condition Onset Date 11/20/24 Current Complaints Pt reports impatience for restrictions to be lifted History of Current Condition Pt underwent L5-1 fusion . She has no BLT until . Pt would like to get back to treadmill for 30 minutes without having to stop. Pt would like to get back to walking on the beach but is not doing so now d/t the unevenness. She would like to get back to picking up dog bowls off the floor and feed the cats. 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 She is sleeping okay. She just found out that her thyroid is messed up. She just started synthroid. PMH includes heart attack s/p stenting, BiPaP at night for RUBENS, several hand surgeries from tendon issues, B partial TKRs, right ovary removed, B lumpectomies (benign). Treatment Goals Patient/Caregiver Goals Walking 30 minutes on treadmill, walking on the beach, feeding the cats and picking up the dog bowls. PT-OP-C Subjective Start: 01/22/25 15:53 Freq: Status: Active Protocol: Document 03/05/25 07:25 MB (Rec: 03/05/25 08:06 MB Desktop) OP-PT Subjective Patient Comments Patient Comments Pt is doing well and is glad that she is no longer having pain. PT-OP-D Balance Start: 01/22/25 15:53 Freq: Status: Active Protocol: Document 01/29/25 07:27 MB (Rec: 01/29/25 08:12 MB [id number]) OP-PT Balance Assessment Standing Balance Standing Balance Comments Standing posture with shoes off: left greater than right rounded shoulders, forward head, Dowager's hump and then decreased kyphosis and then increased kyphosis and mild right convexity mid thoracic spine, change of curve lower thoracic spine, left iliac crest higher than the right. Anterior and posterior surgical scars, overpronation left ankle, left arm rests more anterior than the right. Rollins Fall Scale Copyright Permission PT-OP-G Mobility & Gait Start: 01/22/25 15:53 Freq: Status: Active Protocol: Document 01/29/25 07:27 MB (Rec: 01/29/25 08:12 MB [id number]) OP Mobility Evaluation Bed Mobility Rolling Log roll today on and off plinth OP Gait Assessment Comments Gait Comments Gait with shoes off: very stiff shoulders and decreased arm swing, forward and rounded shoulders PT-OP-J Posture/Palpation/Skin Start: 01/22/25 15:53 Freq: Status: Active Protocol: Document 01/29/25 07:27 MB (Rec: 01/29/25 09:02 MB [id number]) Posture Evaluation Comments Posture Comments Standing posture with shoes off: left greater than right rounded shoulders, forward head, Dowager's hump and then decreased kyphosis and then increased kyphosis and mild right convexity mid thoracic spine, change of curve lower thoracic spine, left iliac crest higher than the right. Anterior and posterior surgical scars, overpronation left ankle, left arm rests more anterior than the right. PT-OP-M Strength Start: 01/22/25 15:53 Freq: Status: Active Protocol: Document 01/29/25 07:27 MB (Rec: 01/29/25 08:12 MB [id number]) Hip Strength Hip Manual Muscle Testing Left Flexion (L2) 5 Normal Extension (S1) 4+ Good+ Abduction 5 Normal Right Flexion (L2) 5 Normal Extension (S1) 4+ Good+ Abduction 5 Normal Comments MMT in supine for all LE muscles Knee Strength Knee Manual Muscle Testing Left Flexion (S2) 5 Normal Extension (L3) 5 Normal Right Flexion (S2) 5 Normal Extension (L3) 5 Normal Ankle/Foot Strength Ankle and Foot Manual Muscle Testing Left Dorsiflexion (L4) 5 Normal Right Dorsiflexion (L4) 5 Normal Toe Strength Toe Manual Muscle Testing Left Great Toe Extension 5 Normal Right Great Toe Extension 4+ Good+ PT-OP-Q Treatments Start: 01/22/25 15:53 Freq: Status: Active Protocol: Document 03/05/25 07:25 MB (Rec: 03/05/25 08:06 MB Desktop) Therapeutic Exercises Sitting Exercises [place] STS Sitting Exercise Name Reviewed from [facility] Comments Deferred today after deep squats d/t knee pain [place] LAQ Sitting Exercise Name Reviewed from [facility] Side bilateral Equipment Used BIG chair, 2 lb ankle weights Reps/Minutes 30 alternating, 2 sets Standing Exercises [place] deep squats Standing Exercise Name Added to HEP Equipment Used Ballet bar Reps/Minutes 20 reps Comments Stopped d/t tweaky knees Extension in standing Standing Exercise Name Added to [facility] Side bilateral Equipment Used Ballet bar and 2 lb ankle weights Reps/Minutes 30 alternating reps x2 Comments Cues for core tight, imagine pubis to navel [place] Heel Raises Standing Exercise Name Reviewed from [facility] Side bilateral Equipment Used Ballet bar and 2 lb ankle weights Reps/Minutes 30 reps Comments Cues for core tight, imagine pubis to navel [place] Hip Abduction Standing Exercise Name Reviewed from [facility] Side bilateral Equipment Used Ballet bar and 2 lb ankle weights Reps/Minutes 30 alternating reps x2 Comments Cues for core tight, imagine pubis to navel [place] HS curls Standing Exercise Name Reviewed from [facility] Side bilateral Equipment Used Ballet bar and 2 lb ankle weights Reps/Minutes 30 alternating reps x2 Comments Cues for core tight, imagine pubis to navel Therapeutic Activity Therapeutic Activity Body Mechanics ADLs Comments Initiated carrying 14 lb weights and replacing in shelves with core tight and different types of squat--feet // vs feet staggered one in front and one behind Neuro Re-Education Treatment Balance Activities [place] dynamic balance Details HEP and handout today Comments Two sets of each of these, 10 steps, today, and she will perform four sets at home: Tightrope walking forward Tightrope walking backwards Heel walking Toe walking Figure 8 walking Walking EC (near ballet bar) SLS Details Reviewed OTAGO Equipment Ballet bar Comments 4 sec on left foot (opp knee close to 90/90), 10 sec on right foot Tandem stance Details Reviewed OTAGO Equipment Ballet bar Comments 25 sec right foot in front; 60 sec with left foot in front PT-OP-T Assessment and Plan Start: 01/22/25 15:53 Freq: Status: Active Protocol: Document 03/05/25 07:25 MB (Rec: 03/05/25 08:06 MB Desktop) Physical Therapy Assessment Goals 4 Impairment Inability to walk on the beach d/t fear of instability Impairment . Care Home Goal (LTG) Pt will perform WNLs on FGA to allow return to beach walking . 02/26/25: FGA score is 26/30, which is normal and pt has most trouble with backwards walking, tandem walking and walking with EC LTG Duration 8 weeks 3 Impairment Lack of HEP Impairment . Care Home Goal (LTG) Pt will perform progressive HEP with I including alignment , gentle flexibility, core and LE strengthening and balance exercises to improve pain and mobility. 02/21/25: added core progression , tandem, SLS and fwd/bwd tandem walking with OTAGO HO. 02/26/25: Pt is performing all HEP exercises without trouble LTG Duration 8 weeks 2 Impairment Inability to walk 30 minutes on treadmill greater than speed 3 Impairment . Short Term Goal (STG) . STG Duration . Log Raft Worker Goal (LTG) Pt will gait train at least 1614 feet in 6 minutes to improve community ambulation and treadmill walking for exercise. 02/05/25: 1324 ft in 6 min, no reports of pain. 02/26/25: Pt has been performing treadmill walking up to 20 minutes and it is going well, pt is progressing. 6MWT: 1585 feet in 6 minutes LTG Duration 8 weeks 1 Impairment Oswestry reflects 38% impairment Impairment . Care Home Goal (LTG) Pt will present with Oswestry score reflecting no more than 15% impairment to improve pain and quality of life. 02/26/25: Oswestry score reflects 20% impairment LTG Duration 8 weeks Assessment Summary Assessment Completed [place] and added 2 lb ankle weights today, provided updated handouts and added figure 8 and gait with EC to program. Pt to get 2 lb ankle weights and try at home. Con't per plan. Physical Therapy Plan Frequency and Duration Frequency of Treatment 2x/Week Duration of treatment (weeks) 8 Plan of Care Start Date 01/29/25 Plan of Care End Date 03/31/25 Therapeutic Interventions Therapeutic Interventions Balance Training,Canalithic Repositioning,Coordination Training,Gait Training,Home Exercise Program,Joint Mobilizations,Manual Therapy, Neuromuscular Re-education, Patient/Caregiver Education, Self-Care/Home Management,Soft Tissue Mobilization,Taping, Therapeutic Activities, Therapeutic Exercises Modalities Cold Pack/Ice Massage,Electric Stimulation,Hot Packs, Ultrasound Next Visit Focus/Plan Next Note Type Treatment Note Next Visit Plan Work on body mechanics while picking up heavier objects, up to 35 lb and sewing machine is 18 lbs, manual work, review HEP as needed Does not need to schedule more appointments
--- NOTE | 2025-03-12 08:11 | PT.OTN ---
Current Diagnoses Other acute postprocedural pain (03/12/25) Low back pain, unspecified (03/12/25) Physical Therapy Treatment Note PT-OP-A Visit Information Start: 01/22/25 15:53 Freq: Status: Active Protocol: Document 03/12/25 07:31 PG (Rec: 03/12/25 08:50 PG [id number]) Out-Patient Physical Therapy Visit Information Visit Information Visit Type Treatment Note Visit Note 09/02 before KX, pt will d/c before needing modifier SPTA Olga led tx with permission of pt and direct supervision of Neeru BONILLA. Wants to be able to pick up worker 25 # dog - corgi short dog and rolling seat height Visit Start Time 07:31 Visit Stop Time 08:11 Visit Number 11 Number of AIR DEFENSE ARTILLERY SENIOR SERGEANT Visits 1 Evaluation Information Evaluation Date 01/29/25 Precautions Precautions History of HI and stents, back precautions released 02/13/25. PT-OP-B Current Condition Start: 01/22/25 15:53 Freq: Status: Active Protocol: Document 01/29/25 07:27 MB (Rec: 01/29/25 08:12 MB [id number]) Current Condition History of Current Condition Onset Date 11/20/24 Current Complaints Pt reports impatience for restrictions to be lifted History of Current Condition Pt underwent L5-1 fusion . She has no BLT until . Pt would like to get back to treadmill for 30 minutes without having to stop. Pt would like to get back to walking on the beach but is not doing so now d/t the unevenness. She would like to get back to picking up dog bowls off the floor and feed the cats. 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 She is sleeping okay. She just found out that her thyroid is messed up. She just started synthroid. PMH includes heart attack s/p stenting, BiPaP at night for RUBENS, several hand surgeries from tendon issues, B partial TKRs, right ovary removed, B lumpectomies (benign). Treatment Goals Patient/Caregiver Goals Walking 30 minutes on treadmill, walking on the beach, feeding the cats and picking up the dog bowls. PT-OP-C Subjective Start: 01/22/25 15:53 Freq: Status: Active Protocol: Document 03/12/25 07:31 PG (Rec: 03/12/25 08:50 PG [id number]) OP-PT Subjective Patient Comments Patient Comments Pt felt good about adding 2# ankle weights last tx session. She went on a boat retreat this weekend and wasn't able to pack her ankle weights but did perform most of her exercises, with no LBP. Has been able to lift her 15# sewing machine and pack it into it's case with no issues. Would like to be able to lift small dog (25#) off the ground and carry him to the car. PT-OP-D Balance Start: 01/22/25 15:53 Freq: Status: Active Protocol: Document 01/29/25 07:27 MB (Rec: 01/29/25 08:12 MB [id number]) OP-PT Balance Assessment Standing Balance Standing Balance Comments Standing posture with shoes off: left greater than right rounded shoulders, forward head, Dowager's hump and then decreased kyphosis and then increased kyphosis and mild right convexity mid thoracic spine, change of curve lower thoracic spine, left iliac crest higher than the right. Anterior and posterior surgical scars, overpronation left ankle, left arm rests more anterior than the right. Rollins Fall Scale Copyright Permission PT-OP-G Mobility & Gait Start: 01/22/25 15:53 Freq: Status: Active Protocol: Document 01/29/25 07:27 MB (Rec: 01/29/25 08:12 MB [id number]) OP Mobility Evaluation Bed Mobility Rolling Log roll today on and off plinth OP Gait Assessment Comments Gait Comments Gait with shoes off: very stiff shoulders and decreased arm swing, forward and rounded shoulders PT-OP-J Posture/Palpation/Skin Start: 01/22/25 15:53 Freq: Status: Active Protocol: Document 01/29/25 07:27 MB (Rec: 01/29/25 09:02 MB [id number]) Posture Evaluation Comments Posture Comments Standing posture with shoes off: left greater than right rounded shoulders, forward head, Dowager's hump and then decreased kyphosis and then increased kyphosis and mild right convexity mid thoracic spine, change of curve lower thoracic spine, left iliac crest higher than the right. Anterior and posterior surgical scars, overpronation left ankle, left arm rests more anterior than the right. PT-OP-M Strength Start: 01/22/25 15:53 Freq: Status: Active Protocol: Document 01/29/25 07:27 MB (Rec: 01/29/25 08:12 MB [id number]) Hip Strength Hip Manual Muscle Testing Left Flexion (L2) 5 Normal Extension (S1) 4+ Good+ Abduction 5 Normal Right Flexion (L2) 5 Normal Extension (S1) 4+ Good+ Abduction 5 Normal Comments MMT in supine for all LE muscles Knee Strength Knee Manual Muscle Testing Left Flexion (S2) 5 Normal Extension (L3) 5 Normal Right Flexion (S2) 5 Normal Extension (L3) 5 Normal Ankle/Foot Strength Ankle and Foot Manual Muscle Testing Left Dorsiflexion (L4) 5 Normal Right Dorsiflexion (L4) 5 Normal Toe Strength Toe Manual Muscle Testing Left Great Toe Extension 5 Normal Right Great Toe Extension 4+ Good+ PT-OP-Q Treatments Start: 01/22/25 15:53 Freq: Status: Active Protocol: Document 03/12/25 07:31 PG (Rec: 03/12/25 08:50 PG [id number]) Therapeutic Exercises Sitting Exercises [place] STS Sitting Exercise Name Reviewed Equipment Used mesh chair Reps/Minutes 3x10 reps (arms across chest) Comments Cued for break inbetween 10 STS to decrease risk of knee discomfort Standing Exercises [place] deep squats Standing Exercise Name Reviewed Equipment Used mesh chair infront Reps/Minutes 12 reps Comments Stopped d/t knee discomfort Therapeutic Activity Therapeutic Activity Body Mechanics ADLs Name Heavy lifting up/down stairs Reps/Minutes x4 Comments Continued squatting and picking up/carrying 10# > 15# in a crate and walking up/down 4 6inch steps. Neuro Re-Education Treatment Balance Activities [place] dynamic balance Details Reviewed Reps/Duration 15ft x 4 laps each Comments Figure 8 Tightrope walking Fwrd Tightrope walking bckwrd Walking with eyes closed SLS Details Reviewed OTAGO Equipment behind chair Comments No support: 5 seconds on R foot, 16 seconds on L foot. Able to maintain SLS with fingertips on chair for 30 seconds. PT-OP-T Assessment and Plan Start: 01/22/25 15:53 Freq: Status: Active Protocol: Document 03/12/25 07:31 PG (Rec: 03/12/25 08:50 PG [id number]) Physical Therapy Assessment Goals 4 Impairment Inability to walk on the beach d/t fear of instability Impairment . [facility] Goal (LTG) Pt will perform WNLs on FGA to allow return to beach walking . 02/26/25: FGA score is 26/30, which is normal and pt has most trouble with backwards walking, tandem walking and walking with EC LTG Duration 8 weeks 3 Impairment Lack of HEP Impairment . Gin Pole Operator Goal (LTG) Pt will perform progressive HEP with I including alignment , gentle flexibility, core and LE strengthening and balance exercises to improve pain and mobility. 02/21/25: added core progression , tandem, SLS and fwd/bwd tandem walking with OTAGO HO. 02/26/25: Pt is performing all HEP exercises without trouble LTG Duration 8 weeks 2 Impairment Inability to walk 30 minutes on treadmill greater than speed 3 Impairment . Short Term Goal (STG) . STG Duration . [facility] Goal (LTG) Pt will gait train at least 1614 feet in 6 minutes to improve community ambulation and treadmill walking for exercise. 02/05/25: 1324 ft in 6 min, no reports of pain. 02/26/25: Pt has been performing treadmill walking up to 20 minutes and it is going well, pt is progressing. 6MWT: 1585 feet in 6 minutes LTG Duration 8 weeks 1 Impairment Oswestry reflects 38% impairment Impairment . Gin Pole Operator Goal (LTG) Pt will present with Oswestry score reflecting no more than 15% impairment to improve pain and quality of life. 02/26/25: Oswestry score reflects 20% impairment LTG Duration 8 weeks Assessment Summary Assessment Pt demonstrated good body mechanics when lifting and carrying weight up/down stairs . Was able to progress from carrying 10# to 15# while maintaining safe deep squats and good hip hinge. Pt continues to be challenged with SLS, was able to maintain SLS on L LE for 16 seconds with no hands but only 5 seconds on the R LE. Encouraged pt to continue practicing SLS at home with no UE support as well as fingertip support, pt was able to maintain SLS on R LE for 30 seconds with just fingertips on chair. Trialed breaking [place] STS's activity into 3 sets to complete all 30 reps while allowing rest for knees, pt was able to complete all 30 STS's with less then 1min break in between 10 reps. Physical Therapy Plan Frequency and Duration Frequency of Treatment 2x/Week Duration of treatment (weeks) 8 Plan of Care Start Date 01/29/25 Plan of Care End Date 03/31/25 Therapeutic Interventions Therapeutic Interventions Balance Training,Canalithic Repositioning,Coordination Training,Gait Training,Home Exercise Program,Joint Mobilizations,Manual Therapy, Neuromuscular Re-education, Patient/Caregiver Education, Self-Care/Home Management,Soft Tissue Mobilization,Taping, Therapeutic Activities, Therapeutic Exercises Modalities Cold Pack/Ice Massage,Electric Stimulation,Hot Packs, Ultrasound Next Visit Focus/Plan Next Note Type Progress Note Next Visit Plan Update progress note on 03/19, progress heavy lifting/ carrying up/dwn stairs to 20#? Work on body mechanics while picking up heavier objects, up to 35 lb and sewing machine is 18 lbs, manual work, review HEP as needed Does not need to schedule more appointments
--- NOTE | 2025-03-19 09:00 | PT.OTN ---
Current Diagnoses Other acute postprocedural pain (03/19/25) Low back pain, unspecified (03/19/25) Physical Therapy Treatment Note PT-OP-A Visit Information Start: 01/22/25 15:53 Freq: Status: Active Protocol: Document 03/19/25 08:17 MB (Rec: 03/19/25 08:33 MB Desktop) Out-Patient Physical Therapy Visit Information Visit Information Visit Type Discharge Summary Visit Start Time 08:17 Visit Stop Time 08:57 Visit Number 12 Number of PACKING AND STAMPING MACHINE OPERATOR Visits 0 Evaluation Information Evaluation Date 01/29/25 Precautions Precautions History of MS and stents, back precautions released 02/13/25. PT-OP-B Current Condition Start: 01/22/25 15:53 Freq: Status: Active Protocol: Document 01/29/25 07:27 MB (Rec: 01/29/25 08:12 MB [id number]) Current Condition History of Current Condition Onset Date 11/20/24 Current Complaints Pt reports impatience for restrictions to be lifted History of Current Condition Pt underwent L5-1 fusion . She has no BLT until . Pt would like to get back to treadmill for 30 minutes without having to stop. Pt would like to get back to walking on the beach but is not doing so now d/t the unevenness. She would like to get back to picking up dog bowls off the floor and feed the cats. 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 She is sleeping okay. She just found out that her thyroid is messed up. She just started synthroid. PMH includes heart attack s/p stenting, BiPaP at night for RUBENS, several hand surgeries from tendon issues, B partial TKRs, right ovary removed, B lumpectomies (benign). Treatment Goals Patient/Caregiver Goals Walking 30 minutes on treadmill, walking on the beach, feeding the cats and picking up the dog bowls. PT-OP-C Subjective Start: 01/22/25 15:53 Freq: Status: Active Protocol: Document 03/19/25 08:17 MB (Rec: 03/19/25 08:33 MB Desktop) OP-PT Subjective Patient Comments Patient Comments Pt likes her exercises. She is feeling really good. She is working on picking up cat litter bags that are 20 lbs and carry them 75 feet from the house. She vacuumed and did not twist and did well. 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 Pt is walking 30 minutes on the treadmill. PT-OP-D Balance Start: 01/22/25 15:53 Freq: Status: Active Protocol: Document 01/29/25 07:27 MB (Rec: 01/29/25 08:12 MB [id number]) OP-PT Balance Assessment Standing Balance Standing Balance Comments Standing posture with shoes off: left greater than right rounded shoulders, forward head, Dowager's hump and then decreased kyphosis and then increased kyphosis and mild right convexity mid thoracic spine, change of curve lower thoracic spine, left iliac crest higher than the right. Anterior and posterior surgical scars, overpronation left ankle, left arm rests more anterior than the right. Rollins Fall Scale Copyright Permission PT-OP-G Mobility & Gait Start: 01/22/25 15:53 Freq: Status: Active Protocol: Document 01/29/25 07:27 MB (Rec: 01/29/25 08:12 MB [id number]) OP Mobility Evaluation Bed Mobility Rolling Log roll today on and off plinth OP Gait Assessment Comments Gait Comments Gait with shoes off: very stiff shoulders and decreased arm swing, forward and rounded shoulders PT-OP-J Posture/Palpation/Skin Start: 01/22/25 15:53 Freq: Status: Active Protocol: Document 01/29/25 07:27 MB (Rec: 01/29/25 09:02 MB [id number]) Posture Evaluation Comments Posture Comments Standing posture with shoes off: left greater than right rounded shoulders, forward head, Dowager's hump and then decreased kyphosis and then increased kyphosis and mild right convexity mid thoracic spine, change of curve lower thoracic spine, left iliac crest higher than the right. Anterior and posterior surgical scars, overpronation left ankle, left arm rests more anterior than the right. PT-OP-M Strength Start: 01/22/25 15:53 Freq: Status: Active Protocol: Document 01/29/25 07:27 MB (Rec: 01/29/25 08:12 MB [id number]) Hip Strength Hip Manual Muscle Testing Left Flexion (L2) 5 Normal Extension (S1) 4+ Good+ Abduction 5 Normal Right Flexion (L2) 5 Normal Extension (S1) 4+ Good+ Abduction 5 Normal Comments MMT in supine for all LE muscles Knee Strength Knee Manual Muscle Testing Left Flexion (S2) 5 Normal Extension (L3) 5 Normal Right Flexion (S2) 5 Normal Extension (L3) 5 Normal Ankle/Foot Strength Ankle and Foot Manual Muscle Testing Left Dorsiflexion (L4) 5 Normal Right Dorsiflexion (L4) 5 Normal Toe Strength Toe Manual Muscle Testing Left Great Toe Extension 5 Normal Right Great Toe Extension 4+ Good+ PT-OP-Q Treatments Start: 01/22/25 15:53 Freq: Status: Active Protocol: Document 03/19/25 08:17 MB (Rec: 03/19/25 08:41 MB Desktop) Therapeutic Exercises Other Exercises HEP review on d/c Comments Performed today to prepare for d/c Gait Training Gait Activity 6MWT Comments Pt gait trained 1572 feet in 6 minutes and she keeps up a conversation throughout treatment, she tends to keep arms with elbows flexed and close to body and pt gait trains at least 8' during treatment, I, similar gait pattern with reduced arm swing Neuro Re-Education Treatment Balance Activities FGA Comments Pt scores 26/30, which is WNLs and pt has most challenges with gait with EC and added to HEP today, she also had challenge with backwards walking and she has backwards walking tandem with [place] FGA activities Comments Sliding fingernail along the wall and walking four lengths 20 feet with EC for home, superv to perform 2 reps in clinic, made handout Self-Care/Home Management Treatment Education Other Education Ed about HEP performance, con' t [place] 2x/wk, con't hallway walking 5x/wk with EC, body mechanics and taking breaks PT-OP-T Assessment and Plan Start: 01/22/25 15:53 Freq: Status: Active Protocol: Document 03/19/25 08:17 MB (Rec: 03/19/25 08:33 MB Desktop) Physical Therapy Assessment Goals 4 Impairment Inability to walk on the beach d/t fear of instability Impairment . Halfway Goal (LTG) Pt will perform WNLs on FGA to allow return to beach walking . 02/26/25: FGA score is 26/30, which is normal and pt has most trouble with backwards walking, tandem walking and walking with EC 03/19/25: FGA score is 26/30, which is WNLs and pt has most trouble with gait with EC, added to HEP LTG Duration Met 3 Impairment Lack of HEP Impairment . Halfway Goal (LTG) Pt will perform progressive HEP with I including alignment , gentle flexibility, core and LE strengthening and balance exercises to improve pain and mobility. 02/21/25: added core progression , tandem, SLS and fwd/bwd tandem walking with OTAGO HO. 02/26/25: Pt is performing all HEP exercises without trouble 03/19/25: Pt is performing exercises at home LTG Duration Met 2 Impairment Inability to walk 30 minutes on treadmill greater than speed 3 Impairment . Short Term Goal (STG) . STG Duration . Roofer [place] Goal (LTG) Pt will gait train at least 1614 feet in 6 minutes to improve community ambulation and treadmill walking for exercise. 02/05/25: 1324 ft in 6 min, no reports of pain. 02/26/25: Pt has been performing treadmill walking up to 20 minutes and it is going well, pt is progressing. 6MWT: 1585 feet in 6 minutes 03/19/25: Pt gait trains 1572 feet in 6 minutes and she tends to keep arms with elbows bent and close to her body, pt talking throughout gait LTG Duration Progressed 1 Impairment Oswestry reflects 38% impairment Impairment . Roofer [place] Goal (LTG) Pt will present with Oswestry score reflecting no more than 15% impairment to improve pain and quality of life. 02/26/25: Oswestry score reflects 20% impairment 03/19/25 Oswestry score reflects 14% impairment, surpassing goal LTG Duration Surpassed goal Assessment Summary Assessment Pt has met or progressed towards all OPPT goals and she is ready to d/c PT. Physical Therapy Plan Frequency and Duration Frequency of Treatment 2x/Week Duration of treatment (weeks) 8 Plan of Care Start Date 01/29/25 Plan of Care End Date 03/31/25 Therapeutic Interventions Therapeutic Interventions Balance Training,Canalithic Repositioning,Coordination Training,Gait Training,Home Exercise Program,Joint Mobilizations,Manual Therapy, Neuromuscular Re-education, Patient/Caregiver Education, Self-Care/Home Management,Soft Tissue Mobilization,Taping, Therapeutic Activities, Therapeutic Exercises Modalities Cold Pack/Ice Massage,Electric Stimulation,Hot Packs, Ultrasound
== END 2025-04-18 10:40 | disposition home or self-care (01) ==
LOC: PHYS 08:15
PROVIDERS: Family Provider Nurse Practitioner; PCP Family Medicine; Referring Provider Orthopaedic Surgery; Visit Provider Orthopaedic Surgery
DX: M54.50 Low back pain, unspecified (principal); G89.18 Other acute postprocedural pain
CPT/HCPCS: 97110; 97112; 97116; 97140; 97161; 97530; 97535

== ENCOUNTER → 2025-03-26 06:46 | Outpatient (CLI) | payer MEDICARE, OTHER, SELFPAY ==
[2025-03-26 08:35] LABS: Free T3, Triiodothyronine Free 3.55 pg/mL (2.77-5.27); Free T4, Direct Thyroxine 1.05 ng/dL (0.78-2.19)
[2025-03-26 08:48] LABS: Thyroid Stimulating Hormone 2.12 uIU/mL (0.47-4.68)
== END ==
PROVIDERS: Family Provider Nurse Practitioner; PCP Family Medicine; Referring Provider Family Medicine; Visit Provider Family Medicine
DX: E03.9 Hypothyroidism, unspecified (principal)
CPT/HCPCS: 36415; 84439; 84443; 84481

== ENCOUNTER → 2025-04-08 09:20 | Outpatient (CLI) | payer MEDICARE, OTHER, SELFPAY ==
--- NOTE | 2025-04-08 09:21 | DI.CT.S_ITS ---
PROCEDURE: CT HEAD/BRAIN WO CON INDICATIONS: language losses TECHNIQUE: Noncontrast 4.5 mm thick angled axial sections acquired from the foramen magnum to the vertex, with coronal and sagittal reformats. For radiation dose reduction, the following was used: automated exposure control, adjustment of mA and/or kV according to patient size. COMPARISON: None. FINDINGS: Image quality: Diagnostic CSF spaces: Basal cisterns are patent. Lateral ventricles are symmetric. Volume: Vascular calcifications. Periventricular white matter disease is commonly seen with chronic microangiopathy. Volume loss is present. These findings are [id number] Brain: No acute hemorrhage or acute gross loss of verdugo-white differentiation Craniofacial structures: No significant paranasal sinus opacity. IMPRESSION: No acute intracranial pathology. If there is high concern for parenchymal pathology, consider further evaluation with MRI. Dictated by: Niranjan Vincent M.D. on 04/08/2025 at 19:39 Approved by: Niranjan Vincent M.D. on 04/08/2025 at 19:40
== END ==
PROVIDERS: Family Provider Nurse Practitioner; PCP Family Medicine; Referring Provider Family Medicine; Visit Provider Family Medicine
DX: R47.01 Aphasia (principal)
CPT/HCPCS: 70450

== ENCOUNTER → 2025-11-14 10:05 | Outpatient (CLI) | payer MEDICARE, OTHER, SELFPAY ==
[2025-11-14 10:21] LABS: Add Manual Diff / Slide Review NO; Hematocrit 36.8 % (36-46); Hemoglobin 12.3 g/dL (12.0-16.0); Lymphocytes Absolute Auto 1500 /uL (1100-4500); Mean Corpuscular HGB Conc 33.4 % (30-36); Mean Corpuscular Hemoglobin 27.8 PG (26-34); Mean Corpuscular Volume 83.1 fL (80-100); Platelet Count 249 X10^3/uL (150-400)
[2025-11-14 10:39] LABS: HEMOLYSIS < 15 (0-50); Iron 79 ug/dL (37-170)
[2025-11-14 10:51] LABS: Percent Iron Saturation 19 % (15-50); Total Iron Binding Capacity 417 ug/dL (265-497); Transferrin 364 mg/dL (206-381)
== END ==
PROVIDERS: Family Provider Family Medicine; PCP Family Medicine; Referring Provider Family Medicine; Visit Provider Family Medicine
DX: D64.9 Anemia, unspecified (principal)
CPT/HCPCS: 36415; 83540; 83550; 85025